=== PATIENT | female | born 1935 | race Hispanic/Latino ===

== ENCOUNTER 2016-11-03 18:54 | Inpatient (IN) | payer MEDICARE ==
[2016-11-03 18:55] VITALS: BMI 27.1
--- NOTE | 2016-11-03 19:31 | ED PDOC ---
HPI: Female Pain Time Seen by Provider: 11/03/16 19:05 Chief Complaint (Nursing): Weakness/Neurological Deficit Chief Complaint (Provider): Urinary frequency/burning/weakness History Per: Patient, Family (Son at bedside who works with mother every day. 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 He reports today she was very weak to the point of being unable to walk and began having fever, chills, headache, loss of appetite, and sleeping a lot. He and patient deny any sick contacts, chest pain, SOB, diarrhea, N/V, abdominal pain, visual/speech changes, cough, DVT, PE, [place]) History/Exam Limitations: no limitations Onset/Duration Of Symptoms: Gradual (Began with urinary frequency and progressed to burning), Worse Since (Today) Current Symptoms Are (Timing): Still Present Quality Of Discomfort: Burning Associated Symptoms: Fever, Chills, Loss Of Appetite, Urinary Symptoms Alleviating Factors: None Additional History Per: Family, Prior Records Abnormal Vaginal Bleeding: No Past Medical History Vital Signs: Last Vital Signs Temp 38.1 C H 11/03/16 18:55 Pulse 91 H 11/03/16 18:55 Resp 16 11/03/16 18:55 BP 163/89 H 11/03/16 18:55 Pulse Ox 96 11/03/16 18:55 - Medical History PMH: CVA (13yrs ago), HTN, Hypercholesterolemia, Hyperlipidemia, Pneumonia, TIA Denies: Arthritis (denied), Fractures, HIV, Pulmonary Embolism, Chronic Kidney Disease - Family History Family History: States: Unknown Family Hx - Home Medications Home Medications: Ambulatory Orders Medication Instructions Recorded Albuterol 0.083% [Albuterol 3 ml IH Q6 PRN #1 neb 09/05/15 Sulfate 3 Ml] Cholecalciferol (Vitamin D3) 2,000 unit PO DAILY #30 tablet 09/05/15 [Vitamin D] Mask, Face [Nebulizer Aerosol Mask 1 dev XX Q6 PRN #1 dev 09/05/15 Adult] Nebulizer [Aeroeclipse II] 1 each MC Q6 PRN #0 each 09/05/15 RX: Calcium/Niacin [Niacin 64 1 tab PO DAILY #0 tab 09/05/15 mg-500 mg] RX: Clopidogrel [Plavix] 75 mg PO DAILY #0 tab 09/05/15 RX: Losartan Potassium 100 mg PO DAILY #0 tab 09/05/15 RX: amLODIPine [Norvasc] 10 mg PO DAILY #0 tab 09/05/15 - Allergies Allergies/Adverse Reactions: Allergies Allergy/AdvReac Type Severity Reaction Status Date / Time No Known Allergies Allergy Verified 11/03/16 18:55 Review of Systems ROS Statement: Except As Marked, All Systems Reviewed And Found Negative Constitutional: Positive for: Fever, Chills, Weakness Eyes: Negative for: Vision Change ENT: Negative for: Ear Pain, Nose Congestion Cardiovascular: Negative for: Chest Pain, Orthopnea, Edema Respiratory: Negative for: Cough, Shortness of Breath Gastrointestinal: Negative for: Nausea, Vomiting, Abdominal Pain, Diarrhea Genitourinary Female: Positive for: Dysuria, Frequency, Incontinence Musculoskeletal: Negative for: Neck Pain, Back Pain Skin: Negative for: Rash Neurological: Negative for: Incoordination, Change in Speech, Confusion, Seizures, Altered Mental Status Psych: Negative for: Anxiety Physical Exam - Physical Exam Appears: Positive for: Non-toxic, No Acute Distress Head Exam: Positive for: ATRAUMATIC, NORMAL INSPECTION Skin: Positive for: Normal Color, Warm. Negative for: Rash Eye Exam: Positive for: Normal appearance, EOMI, PERRL. Negative for: Nystagmus ENT: Positive for: Pharynx Is (clear), Other (dry mucosa). Negative for: Sinus Pain/Drainage, Nasal Congestion, Tonsillar Exudate Neck: Positive for: Normal, Supple Cardiovascular/Chest: Positive for: Regular Rate, Rhythm, Murmur (). Negative for: Gallop, JVD, Friction Rub Respiratory: Positive for: Normal Breath Sounds. Negative for: Crackles, Rales , Rhonchi, Wheezing Pulses-Dorsalis Pedis (L): 1+ Pulses-Dorsalis Pedis (R): 1+ Pulses-Radial (L): 2+ Pulses-Radial (R): 2+ Gastrointestinal/Abdominal: Positive for: Normal Exam, Bowel Sounds, Soft. Negative for: Tenderness, Rebound Back: Negative for: L CVA Tenderness, R CVA Tenderness Extremity: Positive for: Normal ROM, Capillary Refill (<3s) Lymphatic: Negative for: Adenopathy Neurologic/Psych: Positive for: Alert, Oriented, Other (Tongue deviates to right ). Negative for: Motor/Sensory Deficits - Laboratory Results Result Diagrams: 11/03/16 20:11 11/03/16 20:11 Urine dip results: Positive for: Leukocyte Esterase, Blood, Nitrate - ECG ECG: Positive for: Interpreted By Me (NSR- 89, no acute ST-T abnormality) O2 Sat by Pulse Oximetry: 96 Pulse Ox Interpretation: Normal - Physician Consult Information Time Consulting Physican Contacted: 20:51 Medical Decision Making Medical Decision Making: EKG NSR, no ST-T abnormalities, hx c/w UTI but cannot r/o pyelonephritis. - CBC - CMP - PT/INR/PTT - EKG - urinalysis - Urine c&s - Accu-check:108 - Lactic Acid - Rocephin - BCx - 500ml NS bolus - urine dip: Nitrates/Blood/KATHERINE+ 1: FM resident contacted and informed of admission. Disposition - Clinical Impression Clinical Impression: Pyelonephritis, acute, SIRS (systemic inflammatory response syndrome) - Patient ED Disposition Is Patient to be Admitted: Yes Comment: Resident Doctor Will See Patient In The: Hospital - Disposition Disposition Time: 20:58 Condition: FAIR
[2016-11-03] MEDS ORDERED: Sodium Chloride 0.9% 500 ML IV STA (19:36)
[2016-11-03] MEDS ORDERED: cefTRIAXone (Rocephin) 1 gm Inj ONE (20:09)
[2016-11-03 20:15] LABS: RBC URINE 5 /hpf (0-3); URINE BACTERIA OCC (<OCC); URINE BILIRUBIN NEGATIVE (NEGATIVE); URINE BLOOD MODERATE (NEGATIVE); URINE COLOR YELLOW (YELLOW); URINE GLUCOSE (UA) NEG (Normal); URINE KETONE NEGATIVE (NEGATIVE); URINE LEUKOCYTE ESTERASE LARGE Leu/uL (Negative); URINE PROTEIN 30 mg/dL (NEGATIVE); URINE UROBILINOGEN 0.2-1.0 mg/dL (0.2-1.0); WBC URINE 162 /hpf (0-5)
[2016-11-03 20:18] LABS: BASO # 0.1 K/uL (0.0-0.2); BASO % 0.9 % (0.0-2.0); EOS % 0.1 % (0.0-4.0); HEMATOCRIT 36.8 % (34.0-47.0); MEAN CELL VOLUME 84.4 fl (81.0-99.0); MEAN CORPUSCULAR HEMOGLOBIN 27.8 pg (27.0-31.0); MEAN CORPUSCULAR HGB CONC 32.9 g/dL (33.0-37.0); MONO # 0.6 K/uL (0.0-0.8); MONO % 4.9 % (0.0-10.0); NEUT % 86.1 % (50.0-75.0); PLATELET COUNT 188 K/uL (130-400); RED CELL DISTRIBUTION WIDTH 14.2 % (11.5-14.5); WHITE BLOOD COUNT 12.8 K/uL (4.8-10.8)
[2016-11-03 20:25] LABS: ALB/GLOB RATIO 1.1 (1.0-2.1); ALKALINE PHOSPHATASE 134 U/L (38-126); ALT/SGPT 28 U/L (9-52); AST/SGOT 23 U/L (14-36); BILIRUBIN,TOTAL 1.9 mg/dl (0.2-1.3); BLOOD UREA NITROGEN 12 mg/dl (7-17); CARBON DIOXIDE 22 mmol/L (22-30); CHLORIDE 98 mmol/L (98-107); GFR AFRICAN-AMERICAN > 60; GLUCOSE,RANDOM 111 mg/dL (65-105); POTASSIUM 3.7 MMOL/L (3.6-5.0); SODIUM 136 mmol/l (132-148)
[2016-11-03 20:45] LABS: NEUTROPHIL 85 % (42-75); TOTAL CELLS COUNTED 100
[2016-11-03 20:46] LABS: LARGE PLATELETS PRESENT
[2016-11-03 20:53] LABS: PARTIAL THROMBOPLASTIN TIME 32.5 SECONDS (23.3-32.5)
--- NOTE | 2016-11-03 21:18 | CP.PCM.HP ---
<Momo Johnson - Last Filed: 11/04/16 03:01> History of Present Illness - History of Present Illness History of Present Illness: CC/HPI: 81 y.o. female accompannied with son Angel presents to [facility] for evaluation of "burning" while urinating for the past 2 days preceded by 2 weeks of frequency and incontinence. Pt. also reports left sided flank pain, fever, chills, decreased appetite and weakness. On ROS, Pt. denies any headache, chest pain, shortness of breath, cough, abdominal pain, N/V/D, or limb pain. PMHx: HTN, Dyslipidemia, Stroke 12 years ago, CAP 2016 PSHx: RT. Hip Replacement Surgery - 2010 FMHx: Not contributory SMHx: Denies TOB, ETOH, DRUGS HOME: Lives with son Ambulates with walker Allergies: NKDA Home Meds: Losartan 100 mg daily Metoprolol succinate 50 mg daily Norvasc 10 mg daily Plavix 75 mg daily Niacin 500mg 1 tab Daily PMD: Dr. Earl Pharmacy: [facility] Course: 1- EKG, CXR 2- CBC, CMP, UA, UCx, BCx, Lactic acid, Coags 3- Bolus 500cc of N/S 4- Rocephin 2gram IVPB Present on Admission - Present on Admission Any Indicators Present on Admission: No History of DVT/PE: No History of Uncontrolled Diabetes: No Urinary Catheter: No Decubitus Ulcer Present: No Review of Systems - Review of Systems Review of Systems: See HPI Past Patient History - Infectious Disease Hx of Infectious Diseases: None - Past Medical History & Family History Past Medical History?: Yes - Past Social History Smoking Status: Never Smoked - CARDIAC Hx Hypercholesterolemia: Yes Hx Hypertension: Yes - PULMONARY Hx Pneumonia: Yes Hx Pulmonary Embolism: No - NEUROLOGICAL Hx Transient Ischemic Attacks (TIA): Yes - HEENT Hx HEENT Problems: No - RENAL Hx Chronic Kidney Disease: No - ENDOCRINE/METABOLIC Hx Endocrine Disorders: No - HEMATOLOGICAL/ONCOLOGICAL Hx Human Immunodeficiency Virus (HIV): No - INTEGUMENTARY Hx Dermatological Problems: No - MUSCULOSKELETAL/RHEUMATOLOGICAL Hx Arthritis: No (denied) Hx Fractures: Yes (Rt. Hip) - GASTROINTESTINAL Hx Hemorrhoids: Yes (and were noted on this admission) Hx Nausea: Yes (prior to this admission) Hx Vomiting: Yes (prior to this admission for three days) - GENITOURINARY/GYNECOLOGICAL Hx Genitourinary Disorders: No - PSYCHIATRIC Hx Psychophysiologic Disorder: No Hx Substance Use: No - SURGICAL HISTORY Hx Surgeries: Yes Hx Orthopedic Surgery: Yes (right hip surgery) - ANESTHESIA Hx Anesthesia: Yes Hx Anesthesia Reactions: No Hx Malignant Hyperthermia: No Meds Allergies/Adverse Reactions: Allergies Allergy/AdvReac Type Severity Reaction Status Date / Time No Known Allergies Allergy Verified 11/03/16 18:55 Physical Exam - Constitutional Appears: Non-toxic, No Acute Distress - Head Exam Head Exam: ATRAUMATIC, NORMOCEPHALIC - Eye Exam Eye Exam: Normal appearance, PERRL. absent: Scleral icterus - ENT Exam ENT Exam: Mucous Membranes Moist - Neck Exam Additional comments: Supple, Full ROM - Respiratory Exam Respiratory Exam: Clear to Auscultation Bilateral, NORMAL BREATHING PATTERN - Cardiovascular Exam Cardiovascular Exam: RRR, Systolic Murmur - GI/Abdominal Exam GI & Abdominal Exam: Soft. absent: Tenderness - Extremities Exam Extremities exam: Positive for: normal capillary refill, pedal edema. Negative for: calf tenderness - Back Exam Back exam: absent: CVA tenderness (L), CVA tenderness (R) - Neurological Exam Neurological exam: Alert, CN II-XII Intact (Grossly intact), Oriented x3 - Psychiatric Exam Psychiatric exam: Normal Affect, Normal Mood Results - Vital Signs Recent Vital Signs: Last Vital Signs Temp 100.6 F H 11/03/16 20:24 Pulse 91 H 11/03/16 18:55 Resp 16 11/03/16 18:55 BP 163/89 H 11/03/16 18:55 Pulse Ox 96 11/03/16 21:06 - Labs Result Diagrams: 11/03/16 20:11 11/03/16 20:11 Labs: Laboratory Results - last 24 hr 11/03/16 11/03/16 20:00 20:11 WBC 12.8 H D RBC 4.36 Hgb 12.1 Hct 36.8 MCV 84.4 D MCH 27.8 MCHC 32.9 L RDW 14.2 Plt Count 188 D MPV 9.0 Neut % (Auto) 86.1 H Lymph % (Auto) 8.0 L [place] % (Auto) 4.9 Eos % (Auto) 0.1 Baso % (Auto) 0.9 Neut # 11.0 H Lymph # 1.0 [place] # 0.6 Eos # 0.0 Baso # 0.1 Neutrophils % (Manual) 85 H Band Neutrophils % 2 Lymphocytes % (Manual) 8 L Monocytes % (Manual) 5 Platelet Estimate Normal Large Platelets Present Poikilocytosis (manual Slight Anisocytosis (manual) Slight Ovalocytes Slight PT 11.4 H INR 1.10 H APTT 32.5 Sodium 136 Potassium 3.7 Chloride 98 Carbon Dioxide 22 Anion Gap 20 BUN 12 Creatinine 0.7 Est GFR ( Amer) > 60 Est GFR (Non-Af Amer) > 60 Random Glucose 111 H Lactic Acid 1.1 Calcium 10.0 Total Bilirubin 1.9 H AST 23 ALT 28 Alkaline Phosphatase 134 H Total Protein 8.0 Albumin 4.1 Globulin 3.9 Albumin/Globulin Ratio 1.1 Urine Color Yellow Urine Clarity Slighty-cloudy Urine pH 7.0 Ur Specific [place] 1.006 Urine Protein 30 Urine Glucose (UA) Neg Urine Ketones Negative Urine Blood Moderate Urine Nitrate Negative Urine Bilirubin Negative Urine Urobilinogen 0.2-1.0 Ur Leukocyte Esterase Large Urine RBC (Auto) 5 H Urine Microscopic WBC 162 H Ur Squamous Epith Cells < 1 Urine Bacteria Occ H Assessment & Plan - Assessment and Plan (Free Text) Assessment: 81 y.o. female admitted for acute pylonephritis and Sepsis Acute Pyleonephritis - UA postive - UCx pending - Rocephin 1gram IVPB daily - Normal Saline 75cc/hr - Consider I.D. consult - Repeat CBC & BMP in the a.m. Sepsis- SIRS Criteria (Temp 100.4 + HR>90 + WBC12) and Source of infection- UTI - BCx pending - Rocephin 1gram IVPB daily - Consider I.D. consult - Repeat CBC & BMP in the a.m. - CXR pending Leucocytosis - Rocephin 1gram IVPB daily - Repeat CBC in the a.m. Fever - Tylenol PRN Nausea & Decreased PO intake - Zofran PRN Hx of Stroke- 13 years ago monitor - Continue Plavix 75mg po daily HTN - Continue Metoprolol Succinate 50mg po daily - Continue Amlodipine 10mg po daily - Continue Losartan 100mg po daily Hx of Rt. Hip Fx - Physical therapy evaluate and treat - Fall precautions in place GI prophylaxis - Pepcid 40mg PO daily DVT prophylaxis - Lovenox 40mg sc Diet - Heart healthy/Soft <Tylor Earl - Last Filed: 11/04/16 07:31> Results - Vital Signs Recent Vital Signs: Last Vital Signs Temp 99.6 F 11/03/16 23:10 Pulse 73 11/03/16 23:10 Resp 19 11/03/16 23:10 BP 111/51 L 11/03/16 23:10 Pulse Ox 97 11/03/16 23:10 - Labs Result Diagrams: 11/04/16 06:05 11/03/16 20:11 Labs: Laboratory Results - last 24 hr 11/04/16 06:05 WBC 13.3 H RBC 4.06 Hgb 11.1 L Hct 34.6 MCV 85.2 MCH 27.3 MCHC 32.1 L RDW 14.1 Plt Count 163 MPV 9.3 Neut % (Auto) 87.6 H Lymph % (Auto) 6.1 L [place] % (Auto) 5.9 Eos % (Auto) 0.1 Baso % (Auto) 0.3 Neut # 11.6 H Lymph # 0.8 L [place] # 0.8 Eos # 0.0 Baso # 0.0 Attending/Attestation - Attestation I have personally seen and examined this patient.: Yes I have fully participated in the care of the patient.: Yes I have reviewed all pertinent clinical information: Yes
[2016-11-03] MEDS ORDERED: Sodium Chloride 0.9% 1,000 ML IV SCH (21:45)
[2016-11-04] MEDS ORDERED: Pneumococcal 23-Valent Vaccine IM ONE (06:00)
[2016-11-04] MEDS ORDERED: Influenza Vaccine(5yr & older) 0.5 ML/45 MCG IM ONE (06:00)
[2016-11-04 07:08] LABS: BASO % 0.3 % (0.0-2.0); EOS % 0.1 % (0.0-4.0); HEMATOCRIT 34.6 % (34.0-47.0); LYMPH # 0.8 K/uL (1.0-4.3); LYMPH % 6.1 % (20.0-40.0); MEAN CELL VOLUME 85.2 fl (81.0-99.0); MEAN CORPUSCULAR HEMOGLOBIN 27.3 pg (27.0-31.0); MEAN CORPUSCULAR HGB CONC 32.1 g/dL (33.0-37.0); MEAN PLATELET VOLUME 9.3 fl (7.2-11.7); MONO # 0.8 K/uL (0.0-0.8); MONO % 5.9 % (0.0-10.0); NEUT # 11.6 K/uL (1.8-7.0); NEUT % 87.6 % (50.0-75.0); RED CELL DISTRIBUTION WIDTH 14.1 % (11.5-14.5); WHITE BLOOD COUNT 13.3 K/uL (4.8-10.8)
[2016-11-04 07:35] LABS: BLOOD UREA NITROGEN 11 mg/dl (7-17); CALCIUM 9.1 mg/dL (8.4-10.2); CARBON DIOXIDE 21 mmol/L (22-30); CHLORIDE 103 mmol/L (98-107); GFR AFRICAN-AMERICAN > 60; GLUCOSE,RANDOM 91 mg/dL (65-105); POTASSIUM 3.4 MMOL/L (3.6-5.0); SODIUM 139 mmol/l (132-148)
--- NOTE | 2016-11-04 08:05 | CARD ---
APPROVED REPORT EKG Measurement Heart [id number] <Conclusion> Normal sinus rhythm Normal ECG
--- NOTE | 2016-11-04 10:05 | CP.PCM.PN ---
<Carissa Hollins - Last Filed: 11/04/16 14:49> Subjective - Date & Time of Evaluation Date of Evaluation: 11/04/16 Time of Evaluation: 07:50 - Subjective Subjective: Patient seen and examined bedside lying on bed. Reports pain during urination. Denies nausea, vomiting, abdominal pain, chest pain, SOB. Objective - Vital Signs/Intake and Output Vital Signs (last 24 hours): Temp Pulse Resp BP Pulse Ox 100.6 F H 92 H 20 152/71 H 94 L 11/04/16 08:20 11/04/16 08:20 11/04/16 08:20 11/04/16 08:20 11/04/16 08:20 - Medications Medications: Current Medications Acetaminophen (Tylenol 325mg Tab) 650 mg PO Q6 PRN PRN Reason: Fever >100.4 F Last Admin: 11/04/16 08:09 Dose: 650 mg Amlodipine Besylate (Norvasc) 10 mg PO DAILY [facility] Clopidogrel Bisulfate (Plavix) 75 mg PO DAILY [facility] Enoxaparin Sodium (Lovenox) 40 mg SC DAILY [facility] PRN Reason: Protocol Famotidine (Pepcid) 40 mg PO HS [facility] Ceftriaxone Sodium 1 gm/ (Sodium Chloride) 100 mls @ 100 mls/hr IVPB DAILY [facility] Last Admin: 11/04/16 08:11 Dose: 100 mls/hr Sodium Chloride (Sodium Chloride 0.9%) 1,000 mls @ 75 mls/hr IV .[id number] [facility] Stop: 11/04/16 21:46 Losartan Potassium (Cozaar) 100 mg PO DAILY [facility] Metoprolol Succinate (Toprol Xl) 50 mg PO DAILY [facility] Ondansetron HCl (Zofran Inj) 4 mg IVP Q6 PRN PRN Reason: Nausea/Vomiting - Labs Labs: 11/04/16 06:05 11/04/16 06:05 PT 11.4 SECONDS (9.6-11.2) H 11/03/16 20:11 INR 1.10 (0.92-1.08) H 11/03/16 20:11 APTT 32.5 SECONDS (23.3-32.5) 11/03/16 20:11 - Constitutional Appears: No Acute Distress - Head Exam Head Exam: ATRAUMATIC, NORMOCEPHALIC - Eye Exam Eye Exam: Normal appearance - Respiratory Exam Respiratory Exam: Clear to Ausculation Bilateral. absent: Rales, Rhonchi, Wheezes - Cardiovascular Exam Cardiovascular Exam: REGULAR RHYTHM, +S1, +S2, Murmur Additional comments: 3/6 systolic murmur radiated to neck left side. no JVD - GI/Abdominal Exam GI & Abdominal Exam: Soft, Tenderness, Normal Bowel Sounds. absent: Guarding, Rebound Additional comments: Td to palpation left flank. NO CVAT - Extremities Exam Extremities Exam: Normal Inspection. absent: Pedal Edema - Back Exam Back Exam: absent: CVA tenderness (L), CVA tenderness (R) - Neurological Exam Neurological Exam: Alert, Awake - Psychiatric Exam Psychiatric exam: Normal Mood - Skin Skin Exam: Intact Assessment and Plan - Assessment and Plan (Free Text) Plan: 81 yo , f, admitted for acute pylonephritis and Sepsis Acute Pyleonephritis - UA postive - UCx pending - Rocephin 1gram IVPB daily - Normal Saline 75cc/hr - ID consult suggested - Repeat CBC & BMP in the a.m. Sepsis- SIRS Criteria (Temp 100.4 + HR>90 + WBC12) and Source of infection- UTI - BCx pending - Rocephin 1gram IVPB daily - ID consult suggested - CXR Right middle lobe atelectasis or infiltrate. 5 mm nodular density projects over the medial right clavicle Leucocytosis - secondary to pyelonephritis - Rocephin 1gram IVPB daily - Repeat CBC in the a.m. -Hypokalemia K 3.4 Potassium chloride 20 meq PO -F/U CMP Fever - Tylenol PRN Nausea & Decreased PO intake - Zofran PRN Hx of Stroke- 13 years ago monitor - Continue Plavix 75mg po daily HTN - Continue Metoprolol Succinate 50mg po daily - Continue Amlodipine 10mg po daily - Continue Losartan 100mg po daily Hx of Rt. Hip Fx - Physical therapy evaluate and treat - Fall precautions in place GI prophylaxis - Pepcid 40mg PO daily DVT prophylaxis - Lovenox 40mg sc <Sammy Serrano - Last Filed: 11/07/16 06:49> Objective - Vital Signs/Intake and Output Vital Signs (last 24 hours): Temp Pulse Resp BP Pulse Ox 99.9 F H 91 H 18 138/74 94 L 11/07/16 04:49 11/07/16 04:49 11/07/16 04:50 11/07/16 04:49 11/07/16 04:49 Intake and Output: 11/06/16 11/07/16 18:59 06:59 Intake Total 500 Output Total 1100 Balance -600 - Medications Medications: Current Medications Acetaminophen (Tylenol 325mg Tab) 650 mg PO Q6 PRN PRN Reason: Fever >100.4 F Last Admin: 11/06/16 08:47 Dose: 650 mg Albuterol/Ipratropium (Duoneb 3 Mg/0.5 Mg (3 Ml) Ud) 3 ml INH RQ6 PRN PRN Reason: Shortness of Breath Last Admin: 11/06/16 06:27 Dose: 3 ml Amlodipine Besylate (Norvasc) 10 mg PO DAILY [facility] Last Admin: 11/06/16 08:49 Dose: 10 mg Clopidogrel Bisulfate (Plavix) 75 mg PO DAILY [facility] Last Admin: 11/06/16 08:49 Dose: 75 mg Enoxaparin Sodium (Lovenox) 40 mg SC DAILY [facility] PRN Reason: Protocol Last Admin: 11/06/16 08:49 Dose: 40 mg Famotidine (Pepcid) 40 mg PO HS [facility] Last Admin: 11/06/16 21:33 Dose: 40 mg Meropenem 1 gm/ Sodium (Chloride) 100 mls @ 100 mls/hr IVPB Q12 [facility] Last Admin: 11/06/16 21:32 Dose: 100 mls/hr Amikacin Sulfate 250 mg/ (Sodium Chloride) 101 mls @ 100.609 mls/hr IVPB Q24H [facility] Stop: 11/09/16 17:01 Last Admin: 11/06/16 17:00 Dose: 100.609 mls/hr Losartan Potassium (Cozaar) 100 mg PO DAILY [facility] Last Admin: 11/06/16 08:50 Dose: 100 mg Metoprolol Succinate (Toprol Xl) 50 mg PO DAILY [facility] Last Admin: 11/06/16 08:48 Dose: 50 mg Ondansetron HCl (Zofran Inj) 4 mg IVP Q6 PRN PRN Reason: Nausea/Vomiting - Labs Labs: 11/06/16 05:55 11/06/16 05:55 PT 11.4 SECONDS (9.6-11.2) H 11/03/16 20:11 INR 1.10 (0.92-1.08) H 11/03/16 20:11 APTT 32.5 SECONDS (23.3-32.5) 11/03/16 20:11 Attending/Attestation - Attestation I have personally seen and examined this patient.: Yes I have fully participated in the care of the patient.: Yes I have reviewed all pertinent clinical information, including history, physical exam and plan: Yes
--- NOTE | 2016-11-04 10:54 | RAD ---
HISTORY: admit COMPARISON: Chest x-ray performed 08/28/15 TECHNIQUE: Chest, one view. FINDINGS: LUNGS: Right middle lobe atelectasis or infiltrate. Probable mild pulmonary venous congestion. Small nodular pulmonary opacities persist. 5 mm nodular density projects over the medial right clavicle, possibly bone island or superimposed pulmonary nodule/granuloma. Please note that chest x-ray has limited sensitivity for the detection of pulmonary masses. PLEURA: No significant pleural effusion identified. No definite pneumothorax . CARDIOVASCULAR: Cardiomegaly. Atherosclerotic calcifications of an ectatic aorta. OSSEOUS STRUCTURES: Osseous demineralization. Degenerative changes of the spine and shoulders. VISUALIZED UPPER ABDOMEN: Unremarkable. OTHER FINDINGS: Suture material projects over the right lower lobe. IMPRESSION: Right middle lobe atelectasis or infiltrate. Probable mild pulmonary venous congestion. Small nodular pulmonary opacities persist. 5 mm nodular density projects over the medial right clavicle, possibly bone island or superimposed pulmonary nodule/granuloma. Cardiomegaly.
[2016-11-04] MEDS: Metoprolol Succinate 50 mg XL Tab PO SCH (11:39)
[2016-11-04] MEDS: Enoxaparin 40 mg Syringe SC SCH (11:40)
[2016-11-04] MEDS ORDERED: Potassium Chloride 20 mEq ER Tab PO ONE (15:10)
--- NOTE | 2016-11-04 18:33 | CP.PCM.PN ---
Subjective - Date & Time of Evaluation Date of Evaluation: 11/04/16 Time of Evaluation: 18:30 - Subjective Subjective: ID NOTE AT PRESENT IS AFEBRILE HAS BACTERIA,WBC IN URINE AWAIT CULTURES ,CONTINUE ROCEPHEN Objective - Vital Signs/Intake and Output Vital Signs (last 24 hours): Temp Pulse Resp BP Pulse Ox 98 F 59 L 20 157/71 H 94 L 11/04/16 09:09 11/04/16 17:00 11/04/16 08:20 11/04/16 11:40 11/04/16 08:20 - Medications Medications: Current Medications Acetaminophen (Tylenol 325mg Tab) 650 mg PO Q6 PRN PRN Reason: Fever >100.4 F Last Admin: 11/04/16 08:09 Dose: 650 mg Amlodipine Besylate (Norvasc) 10 mg PO DAILY [facility] Last Admin: 11/04/16 11:40 Dose: 10 mg Clopidogrel Bisulfate (Plavix) 75 mg PO DAILY [facility] Last Admin: 11/04/16 11:39 Dose: 75 mg Enoxaparin Sodium (Lovenox) 40 mg SC DAILY [facility] PRN Reason: Protocol Last Admin: 11/04/16 11:40 Dose: 40 mg Famotidine (Pepcid) 40 mg PO HS [facility] Ceftriaxone Sodium 1 gm/ (Sodium Chloride) 100 mls @ 100 mls/hr IVPB DAILY [facility] Last Admin: 11/04/16 08:11 Dose: 100 mls/hr Sodium Chloride (Sodium Chloride 0.9%) 1,000 mls @ 75 mls/hr IV .[id number] [facility] Stop: 11/04/16 21:46 Losartan Potassium (Cozaar) 100 mg PO DAILY [facility] Last Admin: 11/04/16 11:40 Dose: 100 mg Metoprolol Succinate (Toprol Xl) 50 mg PO DAILY [facility] Last Admin: 11/04/16 11:39 Dose: 50 mg Ondansetron HCl (Zofran Inj) 4 mg IVP Q6 PRN PRN Reason: Nausea/Vomiting - Labs Labs: 11/04/16 06:05 11/04/16 06:05 PT 11.4 SECONDS (9.6-11.2) H 11/03/16 20:11 INR 1.10 (0.92-1.08) H 11/03/16 20:11 APTT 32.5 SECONDS (23.3-32.5) 11/03/16 20:11
[2016-11-04] MEDS ORDERED: Meropenem 1 GM in Sodium Chloride 0.9% 100 ML IVPB STA (22:50)
[2016-11-05 06:40] LABS: HEMATOCRIT 32.5 % (34.0-47.0); MEAN CELL VOLUME 85.6 fl (81.0-99.0); MEAN CORPUSCULAR HEMOGLOBIN 27.4 pg (27.0-31.0); RED CELL DISTRIBUTION WIDTH 13.9 % (11.5-14.5); WHITE BLOOD COUNT 9.7 K/uL (4.8-10.8)
[2016-11-05 06:58] LABS: ALB/GLOB RATIO 0.9 (1.0-2.1); ALKALINE PHOSPHATASE 104 U/L (38-126); ALT/SGPT 23 U/L (9-52); AST/SGOT 15 U/L (14-36); BILIRUBIN,TOTAL 0.7 mg/dl (0.2-1.3); BLOOD UREA NITROGEN 12 mg/dl (7-17); CALCIUM 9.2 mg/dL (8.4-10.2); CARBON DIOXIDE 19 mmol/L (22-30); CHLORIDE 106 mmol/L (98-107); GFR AFRICAN-AMERICAN > 60; GLUCOSE,RANDOM 84 mg/dL (65-105); POTASSIUM 3.6 MMOL/L (3.6-5.0); SODIUM 140 mmol/l (132-148); TOTAL PROTEIN 6.2 G/DL (6.3-8.2)
--- NOTE | 2016-11-05 06:59 | CP.PCM.PN ---
<Carissa Hollins - Last Filed: 11/05/16 13:04> Subjective - Date & Time of Evaluation Date of Evaluation: 11/05/16 Time of Evaluation: 07:20 - Subjective Subjective: Patient seen and examined bedside. Reports dry mouth,dysuria, and b/L hands and arms pain. Denies nausea, vomiting, abdominal pain. Urine frequent with normal output. low appetite , but able to tolerate her diet. instructed to drink enough fluids. Objective - Vital Signs/Intake and Output Vital Signs (last 24 hours): Temp Pulse Resp BP Pulse Ox 100.8 F H 82 20 130/65 90 L 11/05/16 00:00 11/05/16 00:00 11/05/16 00:00 11/05/16 00:00 11/05/16 00:00 - Medications Medications: Current Medications Acetaminophen (Tylenol 325mg Tab) 650 mg PO Q6 PRN PRN Reason: Fever >100.4 F Last Admin: 11/04/16 08:09 Dose: 650 mg Amlodipine Besylate (Norvasc) 10 mg PO DAILY [facility] Last Admin: 11/04/16 11:40 Dose: 10 mg Clopidogrel Bisulfate (Plavix) 75 mg PO DAILY [facility] Last Admin: 11/04/16 11:39 Dose: 75 mg Enoxaparin Sodium (Lovenox) 40 mg SC DAILY [facility] PRN Reason: Protocol Last Admin: 11/04/16 11:40 Dose: 40 mg Famotidine (Pepcid) 40 mg PO HS [facility] Last Admin: 11/04/16 22:44 Dose: 40 mg Ceftriaxone Sodium 1 gm/ (Sodium Chloride) 100 mls @ 100 mls/hr IVPB DAILY [facility] Last Admin: 11/04/16 08:11 Dose: 100 mls/hr Meropenem 1 gm/ Sodium (Chloride) 100 mls @ 100 mls/hr IVPB Q12 [facility] Losartan Potassium (Cozaar) 100 mg PO DAILY [facility] Last Admin: 11/04/16 11:40 Dose: 100 mg Metoprolol Succinate (Toprol Xl) 50 mg PO DAILY [facility] Last Admin: 11/04/16 11:39 Dose: 50 mg Ondansetron HCl (Zofran Inj) 4 mg IVP Q6 PRN PRN Reason: Nausea/Vomiting - Labs Labs: 11/05/16 05:55 11/04/16 06:05 PT 11.4 SECONDS (9.6-11.2) H 11/03/16 20:11 INR 1.10 (0.92-1.08) H 11/03/16 20:11 APTT 32.5 SECONDS (23.3-32.5) 11/03/16 20:11 - Constitutional Appears: No Acute Distress - Head Exam Head Exam: ATRAUMATIC, NORMOCEPHALIC - Eye Exam Eye Exam: Normal appearance - Respiratory Exam Respiratory Exam: Clear to Ausculation Bilateral. absent: Rales, Rhonchi, Wheezes - Cardiovascular Exam Cardiovascular Exam: REGULAR RHYTHM, +S1, +S2, Murmur Additional comments: systolic murmur 3/6 radiate to neck on aortic area - GI/Abdominal Exam GI & Abdominal Exam: Soft, Normal Bowel Sounds. absent: Tenderness - Extremities Exam Extremities Exam: Normal Inspection. absent: Calf Tenderness - Neurological Exam Neurological Exam: Alert, Awake Assessment and Plan - Assessment and Plan (Free Text) Plan: 81 yo , f, admitted for acute pylonephritis and Sepsis 1)Acute Pyleonephritis - UA positive - UCx preliminary gram neg damien - Rocephin 1gram IVPB daily - Normal Saline 75cc/hr - ID consult Manocchio appreciated: await cx, c/w rocephin. Added meropenem 1g BID - Repeat CBC & BMP in the a.m. 2) Sepsis - SIRS Criteria (Temp 100.4 + HR>90 + WBC12) and Source of infection- UTI - BCx pending - Rocephin 1gram IVPB daily - ID consult appreciated. - CXR Right middle lobe atelectasis or infiltrate. 5 mm nodular density projects over the medial right clavicle 3)Leucocytosis - secondary to pyelonephritis -resolved - Rocephin 1gram IVPB daily - Repeat CBC in the a.m. 4)-Hypokalemia - resolved -K 3.6 -F/U CMP 5)Hx of Stroke- 13 years ago monitor - Continue Plavix 75mg po daily 6)HTN - Continue Metoprolol Succinate 50mg po daily - Continue Amlodipine 10mg po daily - Continue Losartan 100mg po daily 7)Hx of Rt. Hip Fx - Physical therapy evaluated. Recommends TCU - Fall precautions in place 8)DVT prophylaxis - Lovenox 40mg sc - <Sammy Serrano - Last Filed: 11/07/16 06:50> Objective - Vital Signs/Intake and Output Vital Signs (last 24 hours): Temp Pulse Resp BP Pulse Ox 99.9 F H 91 H 18 138/74 94 L 11/07/16 04:49 11/07/16 04:49 11/07/16 04:50 11/07/16 04:49 11/07/16 04:49 Intake and Output: 11/06/16 11/07/16 18:59 06:59 Intake Total 500 Output Total 1100 Balance -600 - Medications Medications: Current Medications Acetaminophen (Tylenol 325mg Tab) 650 mg PO Q6 PRN PRN Reason: Fever >100.4 F Last Admin: 11/06/16 08:47 Dose: 650 mg Albuterol/Ipratropium (Duoneb 3 Mg/0.5 Mg (3 Ml) Ud) 3 ml INH RQ6 PRN PRN Reason: Shortness of Breath Last Admin: 11/06/16 06:27 Dose: 3 ml Amlodipine Besylate (Norvasc) 10 mg PO DAILY [facility] Last Admin: 11/06/16 08:49 Dose: 10 mg Clopidogrel Bisulfate (Plavix) 75 mg PO DAILY [facility] Last Admin: 11/06/16 08:49 Dose: 75 mg Enoxaparin Sodium (Lovenox) 40 mg SC DAILY [facility] PRN Reason: Protocol Last Admin: 11/06/16 08:49 Dose: 40 mg Famotidine (Pepcid) 40 mg PO HS [facility] Last Admin: 11/06/16 21:33 Dose: 40 mg Meropenem 1 gm/ Sodium (Chloride) 100 mls @ 100 mls/hr IVPB Q12 [facility] Last Admin: 11/06/16 21:32 Dose: 100 mls/hr Amikacin Sulfate 250 mg/ (Sodium Chloride) 101 mls @ 100.609 mls/hr IVPB Q24H [facility] Stop: 11/09/16 17:01 Last Admin: 11/06/16 17:00 Dose: 100.609 mls/hr Losartan Potassium (Cozaar) 100 mg PO DAILY [facility] Last Admin: 11/06/16 08:50 Dose: 100 mg Metoprolol Succinate (Toprol Xl) 50 mg PO DAILY [facility] Last Admin: 11/06/16 08:48 Dose: 50 mg Ondansetron HCl (Zofran Inj) 4 mg IVP Q6 PRN PRN Reason: Nausea/Vomiting - Labs Labs: 11/06/16 05:55 11/06/16 05:55 PT 11.4 SECONDS (9.6-11.2) H 11/03/16 20:11 INR 1.10 (0.92-1.08) H 11/03/16 20:11 APTT 32.5 SECONDS (23.3-32.5) 11/03/16 20:11 Attending/Attestation - Attestation I have personally seen and examined this patient.: Yes I have fully participated in the care of the patient.: Yes I have reviewed all pertinent clinical information, including history, physical exam and plan: Yes
[2016-11-05] MEDS: Enoxaparin 40 mg Syringe SC SCH (08:37)
[2016-11-05] MEDS: Meropenem 1 GM in Sodium Chloride 0.9% 100 ML IVPB SCH ×2 (08:38→21:11)
[2016-11-05] MEDS: Metoprolol Succinate 50 mg XL Tab PO SCH (08:41)
[2016-11-05] MEDS ORDERED: Albuterol-Ipratrop 3 mg / 0.5 (3 ml) UD INH STA ×2 (14:52→23:05)
--- NOTE | 2016-11-05 15:32 | RAD ---
HISTORY: Shortness of breath COMPARISON: 11/03/2016 FINDINGS: LUNGS: No acute infiltrate. Mediastinal and bilateral hilar nodes. . Surgical sutures at right lung base. PLEURA: No significant pleural effusion identified, no pneumothorax apparent. CARDIOVASCULAR: Normal. OSSEOUS STRUCTURES: No significant abnormalities. VISUALIZED UPPER ABDOMEN: Normal. OTHER FINDINGS: None. IMPRESSION: No acute infiltrate. Calcified mediastinal and hilar nodes consistent with old granulomatous disease. Surgical sutures at right base.
[2016-11-05] MEDS ORDERED: Amikacin 500 mg/2ml Inj IM SCH (19:45)
--- NOTE | 2016-11-05 20:53 | CON ---
DATE: 11/05/2016 HISTORY OF PRESENT ILLNESS: The patient is an 81-year-old female who came to the Emergency Room with her son, complaining that she was burning while urinating for the 2 days prior to admission. She also complained of a week to 2 history of frequency and incontinence. She a history of left-sided flank pain , fever, chills, and weakness. PAST HISTORY: The patient has a past medical history of CVA, CIP, and dyslipidemia. She had a hip replacement done in 2010. No use of alcohol or drugs. SOCIAL HISTORY: Presently lives with son. MEDICATIONS: Include metoprolol, losartan for blood pressure, Norvasc, and Plavix. PRIVATE DOCTOR: Dr. Dias. PHYSICAL EXAMINATION: GENERAL: The patient is somewhat confused. HEENT: Within normal limits. NECK: Supple. LUNGS: Decreased breath sounds at bases. HEART: Regular sinus rhythm. She has a pansystolic murmur. ABDOMEN: Soft, positive bowel sounds. EXTREMITIES: There is no CCE. VITAL SIGNS: The patient has had a temperature of over 101. LABORATORY DATA: Her micro includes positive blood cultures and urine for gram- negative rods, no identification is noted as possible. She spiked temperatures through Rocephin, though. White count was 12.8 on admission, is now 9.7. Creatinine is 0.7. GFR is greater than 60. Chest x-ray shows no acute infiltrate. At the present time, the patient appears to have gram-negative sepsis, secondary to uti She should be treated at this moment.c meropenem 1 g q. 12 hours and amikacin 250 mg IV piggyback q. 24, I have discontinued the Rocephin as she spiked a temperature through that. For the present time, she will be maintained on these antibiotics until the followup of the cultures with the returns. I have also ordered 2 repeat blood cultures and urine culture. Be Moser MD cc: 61 TT: 11/05/2016 20:52:30 Confirmation # [id number] Dictation # [id number] ln MTDD
[2016-11-06] MEDS ORDERED: Albuterol-Ipratrop 3 mg / 0.5 (3 ml) UD INH PRN (05:27)
[2016-11-06 07:01] LABS: HEMATOCRIT 32.8 % (34.0-47.0); MEAN CELL VOLUME 84.9 fl (81.0-99.0); MEAN CORPUSCULAR HEMOGLOBIN 27.4 pg (27.0-31.0); MEAN CORPUSCULAR HGB CONC 32.3 g/dL (33.0-37.0); RED CELL DISTRIBUTION WIDTH 13.9 % (11.5-14.5); WHITE BLOOD COUNT 7.7 K/uL (4.8-10.8)
[2016-11-06 07:11] LABS: ALB/GLOB RATIO 0.9 (1.0-2.1); ALKALINE PHOSPHATASE 108 U/L (38-126); ALT/SGPT 23 U/L (9-52); AST/SGOT 18 U/L (14-36); BILIRUBIN,TOTAL 0.5 mg/dl (0.2-1.3); BLOOD UREA NITROGEN 12 mg/dl (7-17); CALCIUM 9.3 mg/dL (8.4-10.2); CARBON DIOXIDE 21 mmol/L (22-30); CHLORIDE 102 mmol/L (98-107); GFR AFRICAN-AMERICAN > 60; GLUCOSE,RANDOM 101 mg/dL (65-105); POTASSIUM 3.8 MMOL/L (3.6-5.0); SODIUM 130 mmol/l (132-148); TOTAL PROTEIN 6.4 G/DL (6.3-8.2)
--- NOTE | 2016-11-06 07:36 | CP.PCM.PN ---
<AllegraCarissa doe - Last Filed: 11/06/16 10:26> Subjective - Date & Time of Evaluation Date of Evaluation: 11/06/16 Time of Evaluation: 07:05 - Subjective Subjective: Patient seen and examined bedside. Reports mild SOB started yesterday night. Patient was given duoneb last night due to wheezing and SOB. Using O2 NC. Breathing with mild difficulty on O2 NC. Reports body aches, over hands and arms. Denies Chest pain, palpitation, abd pain, nausea, vomiting. Urinating frequent with normal output Objective - Vital Signs/Intake and Output Vital Signs (last 24 hours): Temp Pulse Resp BP Pulse Ox 97.4 F L 92 H 22 150/83 93 L 11/06/16 06:00 11/06/16 06:00 11/06/16 06:00 11/06/16 06:00 11/06/16 06:00 - Medications Medications: Current Medications Acetaminophen (Tylenol 325mg Tab) 650 mg PO Q6 PRN PRN Reason: Fever >100.4 F Last Admin: 11/05/16 18:39 Dose: 650 mg Albuterol/Ipratropium (Duoneb 3 Mg/0.5 Mg (3 Ml) Ud) 3 ml INH RQ6 PRN PRN Reason: Shortness of Breath Last Admin: 11/06/16 06:27 Dose: 3 ml Amikacin Sulfate (Amikacin 500 Mg/2ml Inj) 250 mg IM Q24H [facility] Stop: 11/07/16 19:46 Amlodipine Besylate (Norvasc) 10 mg PO DAILY [facility] Last Admin: 11/05/16 08:39 Dose: 10 mg Clopidogrel Bisulfate (Plavix) 75 mg PO DAILY [facility] Last Admin: 11/05/16 08:39 Dose: 75 mg Enoxaparin Sodium (Lovenox) 40 mg SC DAILY [facility] PRN Reason: Protocol Last Admin: 11/05/16 08:37 Dose: 40 mg Famotidine (Pepcid) 40 mg PO HS [facility] Last Admin: 11/05/16 21:24 Dose: 40 mg Meropenem 1 gm/ Sodium (Chloride) 100 mls @ 100 mls/hr IVPB Q12 [facility] Last Admin: 11/05/16 21:11 Dose: 100 mls/hr Losartan Potassium (Cozaar) 100 mg PO DAILY [facility] Last Admin: 11/05/16 08:36 Dose: 100 mg Metoprolol Succinate (Toprol Xl) 50 mg PO DAILY [facility] Last Admin: 11/05/16 08:41 Dose: 50 mg Ondansetron HCl (Zofran Inj) 4 mg IVP Q6 PRN PRN Reason: Nausea/Vomiting - Labs Labs: 11/06/16 05:55 11/06/16 05:55 PT 11.4 SECONDS (9.6-11.2) H 11/03/16 20:11 INR 1.10 (0.92-1.08) H 11/03/16 20:11 APTT 32.5 SECONDS (23.3-32.5) 11/03/16 20:11 - Constitutional Appears: No Acute Distress - Head Exam Head Exam: ATRAUMATIC, NORMOCEPHALIC - Eye Exam Eye Exam: Normal appearance - Respiratory Exam Respiratory Exam: Rales, Wheezes Additional comments: B/L rales lung bases, scattered wheezing anterior chest - Cardiovascular Exam Cardiovascular Exam: REGULAR RHYTHM, +S1, +S2 Additional comments: systolic 3/6 aortic murmur - GI/Abdominal Exam GI & Abdominal Exam: Soft, Normal Bowel Sounds. absent: Tenderness - Extremities Exam Extremities Exam: Normal Inspection. absent: Pedal Edema - Neurological Exam Neurological Exam: Alert, Awake - Skin Skin Exam: Intact Assessment and Plan - Assessment and Plan (Free Text) Plan: 81 yo , f, admitted for acute pylonephritis and Sepsis 1)Acute Pyleonephritis - UA positive - UCx preliminary echericha coli - Rocephin 1gram IVPB daily -meropenem 1g BID - ID consult Ehsan appreciated: c/w rocephin, added meropenem 1g BID and amikacin - Repeat CBC & BMP in the a.m. 2) Sepsis with bacteremia - SIRS Criteria (Temp 100.4 + HR>90 + WBC12) and Source of infection- UTI -Blood culture: echericha coli. - Rocephin 1gram IVPB daily - ID consult appreciated. repeat Blood cx, Echo 3) Dyspnea - Possible secondary to acute CHF . - Echo 08/2015 Mod aortic stenosis, aort regurg. EF 55% -Echo, AVG, ProbNP -Lasix 40 mg IV stat -Transfer to telemetry Cardio consult suggested. -Pulmonology consult suggested. -CXR Right middle lobe atelectasis or infiltrate. 5 mm nodular density projects over the medial right clavicle -Angiotnesin conver, quantiferon gold 3)Leucocytosis - secondary to pyelonephritis -resolved - Rocephin 1gram IVPB daily - Repeat CBC in the a.m. 4)-Hypokalemia - resolved -K 3.6 -F/U CMP 5)Hx of Stroke- 13 years ago monitor - Continue Plavix 75mg po daily 6)HTN - Continue Metoprolol Succinate 50mg po daily - Continue Amlodipine 10mg po daily - Continue Losartan 100mg po daily 7)Hx of Rt. Hip Fx - Physical therapy evaluated. Recommends TCU - Fall precautions in place 8)DVT prophylaxis - Lovenox 40mg sc <Tylor Dias - Last Filed: 11/12/16 07:08> Objective - Vital Signs/Intake and Output Vital Signs (last 24 hours): Temp Pulse Resp BP Pulse Ox 98.1 F 82 18 128/61 96 11/11/16 13:00 11/11/16 13:00 11/11/16 13:00 11/11/16 13:00 11/11/16 13:00 - Labs Labs: 11/10/16 06:50 11/10/16 06:50 PT 11.4 SECONDS (9.6-11.2) H 11/03/16 20:11 INR 1.10 (0.92-1.08) H 11/03/16 20:11 APTT 32.5 SECONDS (23.3-32.5) 11/03/16 20:11 Attending/Attestation - Attestation I have personally seen and examined this patient.: Yes I have fully participated in the care of the patient.: Yes I have reviewed all pertinent clinical information, including history, physical exam and plan: Yes
[2016-11-06] MEDS ORDERED: MethylPREDNISolone 40 mg Vial ONE (08:10)
[2016-11-06] MEDS ORDERED: Albuterol-Ipratrop 3 mg / 0.5 (3 ml) UD INH STA (08:12)
[2016-11-06 08:45] LABS: ABG ALLEN TEST YES; ARTERIAL BLOOD GAS HCO3 23.4 mmol/L (21-28); ARTERIAL BLOOD GAS O2 CAPACITY 15.3 mL/dL (16-24); ARTERIAL BLOOD GAS O2 CONTENT 14.7 ML/dL (15-23); ARTERIAL BLOOD GAS PH 7.46 (7.35-7.45); ARTERIAL BLOOD GAS PO2 62 mm/Hg (80-100); ARTERIAL BLOOD HGB O2 SAT 93.4 % (95.0-98.0); CARBOXYHEMOGLOBIN 1.6 % (0.5-1.5); HHB 4.1 % (0.0-5.0)
[2016-11-06] MEDS: Metoprolol Succinate 50 mg XL Tab PO SCH (08:48)
[2016-11-06] MEDS: Enoxaparin 40 mg Syringe SC SCH (08:49)
[2016-11-06] MEDS: Meropenem 1 GM in Sodium Chloride 0.9% 100 ML IVPB SCH ×2 (08:55→21:32)
[2016-11-06] MEDS ORDERED: Sodium Chloride 0.9% 50 ML IV ONE (10:13)
[2016-11-06] MEDS ORDERED: Iodixanol 320 MG/ML 100 ML BOTTLE IV ONE (10:13)
--- NOTE | 2016-11-06 11:31 | CARD ---
APPROVED REPORT EXAM: Two-dimensional and M-mode echocardiogram with Doppler and color Doppler. Other Information Quality : GoodRhythm : NSR INDICATION Infection: 2D DIMENSIONS IVSd1.00 (0.7-1.1cm)LVDd4.85 (3.9-5.9cm) LVOT Diameter1.95 (1.8-2.4cm)PWd0.75 (0.7-1.1cm) IVSs0.93 (0.8-1.2cm)LVDs3.32 (2.5-4.0cm) FS (%) 31.6 %PWs1.31 (0.8-1.2cm) M-Mode DIMENSIONS Left Atrium (MM)5.35 (2.5-4.0cm)Aortic Root2.85 (2.2-3.7cm) Aortic Valve AoV Peak Vsgzmnnc741.0cm/sAoV VTI67.3cmAO Peak GR.46mmHg LVOT Peak Yomajuzu868.6cm/sLVOT VTI21.04cmAO Mean GR.29mmHg KATLYN (VMAX)0.62rp4LIP (VTI)0.58cm2 Mitral Valve MV E Btvkawic786.1cm/sMV DECEL FBPG554rjWC A Vejafaen443.4cm/s MV GHK66tfA/A ratio1.2MVA (PHT)3.45cm2 TDI E/Lateral E'0.0E/Medial E'0.0 Pulmonary Valve PV Peak Ttdempdj035.3cm/s Tricuspid Valve TR Peak Ojewzhdb300hl/sRAP XLRACHYQ14gfRjTL Peak Gr.26mmHg DVJM43sgLr LEFT VENTRICLE The left ventricle is normal size. There is normal left ventricular wall thickness. Left ventricle systolic function is normal. The Ejection Fraction is 55-60%. There is normal LV segmental wall motion. Transmitral Doppler flow pattern is Grade I-abnormal relaxation pattern. RIGHT VENTRICLE The right ventricle is normal size. There is normal right ventricular wall thickness. The right ventricular systolic function is normal. ATRIA The left atrium is moderately dilated. The right atrium size is normal. AORTIC VALVE The aortic valve is severely sclerotic. No aortic regurgitation is present. There is severe valvular aortic stenosis. Calculated aortic valve area is 0.92 cm2 with maximum pressure gradient of 56 mmHg and mean pressure gradient of 32 mmHg. MITRAL VALVE Mitral annular calcification is moderate. There is no evidence of mitral valve prolapse. There is no mitral valve stenosis. Mitral regurgitation is mild to moderate. TRICUSPID VALVE The tricuspid valve is normal in structure and function. There is mild tricuspid regurgitation. Right ventricular systolic pressure is estimated at 36 mmHg. There is mild pulmonary hypertension. PULMONIC VALVE The pulmonary valve is normal in structure and function. There is no pulmonic valvular regurgitation. GREAT VESSELS The aortic root is normal in size. The IVC is normal in size and collapses >50% with inspiration. PERICARDIAL EFFUSION The pericardium appears normal. <Conclusion> The left ventricle is normal size. There is normal left ventricular wall thickness. There is normal LV segmental wall motion. Left ventricle systolic function is normal. The Ejection Fraction is 55-60%. Transmitral Doppler flow pattern is Grade I-abnormal relaxation pattern. The left atrium is moderately dilated. The aortic valve is severely sclerotic. There is severe valvular aortic stenosis. Calculated aortic valve area is 0.92 cm2 with maximum pressure gradient of 56 mmHg and mean pressure gradient of 32 mmHg. Mitral regurgitation is mild to moderate.
--- NOTE | 2016-11-06 11:35 | CT ---
PROCEDURE: CT Chest with contrast (Pulmonary Angiogram) HISTORY: Tachypnea, hilar nodes, h/o granulomatous changes COMPARISON: None available. TECHNIQUE: Axial computed tomography images were obtained of the chest in the pulmonary arterial phase of enhancement. Coronal and sagittal reformatted images were created and reviewed. Intravenous contrast dose: 99 mL Visipaque 320 Radiation dose: Total exam DLP = 363.32 mGy-cm. FINDINGS: PULMONARY ARTERIES: Unremarkable. No pulmonary embolism. AORTA: No acute findings. No thoracic aortic aneurysm. LUNGS: Bilateral lower lobe compressive atelectasis secondary to pleural effusions. Alveolar opacity in right lower lobe, nonspecific. Possible pneumonia. No abnormal opacity elsewhere. Previous dense left lower lobe consolidation has resolved. Calcified granuloma anterior segment right upper lobe. Calcified right upper lobe granulomata. Curvilinear calcifications seen in right middle lobe. This has an appearance of central calcification. This should be correlated with any past history of thoracic surgery. PLEURAL SPACES: Small bilateral pleural effusion. This pleural fusion extends to the apex on the right side. HEART: Mild cardiomegaly. Coronary arterial calcification. LYMPH NODES: No significant bulky lymphadenopathy. There are old calcified mediastinal and hilar lymph nodes identified consistent with old granulomatous disease. BONES, CHEST WALL: Unremarkable. No fracture or destructive lesion OTHER FINDINGS: Small hiatal hernia. IMPRESSION: No evidence of pulmonary embolism. Old granulomatous disease with calcified mediastinal and hilar nodes. Small bilateral pleural effusions with compressive atelectasis in lower lobes. Right lower lobe alveolar opacity. Possible pneumonia. . Small hiatal hernia.
--- NOTE | 2016-11-06 11:42 | CP.PCM.CON ---
History of Present Illness - History of Present Illness History of Present Illness: Medical record reviewed and case discussed with PMD and resident. Elderly [place] female admitted initially because of UTI and sepsis, has developed SOB and cough with CXR showing congested bronchovascular markings, calcified hilar and mediastinal nodes and possible left lower lobe retrocardiac density. She had been hospitalized with pneumonia in the past from which she recovered uneventfully. She denies chest pain or hemoptysis, but had some bronchospasm occur overnight. Past Patient History - Infectious Disease Hx of Infectious Diseases: None - Past Medical History & Family History Past Medical History?: Yes - Past Social History Smoking Status: Never Smoked Chewing Tobacco Use: No Cigar Use: No Alcohol: None Drugs: Denies - CARDIAC Hx Cardiac Disorders: Yes Hx Hypercholesterolemia: Yes Hx Hypertension: Yes - PULMONARY Hx Respiratory Disorders: Yes Hx Pneumonia: Yes Hx Pulmonary Embolism: No - NEUROLOGICAL Hx Neurological Disorder: Yes Hx Transient Ischemic Attacks (TIA): Yes - HEENT Hx HEENT Problems: No - RENAL Hx Chronic Kidney Disease: No - ENDOCRINE/METABOLIC Hx Endocrine Disorders: No - HEMATOLOGICAL/ONCOLOGICAL Hx Blood Disorders: Yes Hx Anemia: Yes Hx Human Immunodeficiency Virus (HIV): No - INTEGUMENTARY Hx Dermatological Problems: No - MUSCULOSKELETAL/RHEUMATOLOGICAL Hx Musculoskeletal Disorders: Yes Hx Arthritis: Yes Hx Falls: Yes Hx Unsteady Gait: Yes - GASTROINTESTINAL Hx Gastrointestinal Disorders: Yes Hx Hemorrhoids: Yes (and were noted on this admission) Hx Nausea: Yes (prior to this admission) Hx Vomiting: Yes (prior to this admission for three days) - GENITOURINARY/GYNECOLOGICAL Hx Genitourinary Disorders: No - PSYCHIATRIC Hx Substance Use: No - SURGICAL HISTORY Hx Surgeries: Yes Hx Orthopedic Surgery: Yes (right hip surgery) - ANESTHESIA Hx Anesthesia: Yes Hx Anesthesia Reactions: No Hx Malignant Hyperthermia: No Meds Allergies/Adverse Reactions: Allergies Allergy/AdvReac Type Severity Reaction Status Date / Time No Known Allergies Allergy Verified 11/03/16 18:55 - Medications Medications: Current Medications Acetaminophen (Tylenol 325mg Tab) 650 mg PO Q6 PRN PRN Reason: Fever >100.4 F Last Admin: 11/06/16 08:47 Dose: 650 mg Albuterol/Ipratropium (Duoneb 3 Mg/0.5 Mg (3 Ml) Ud) 3 ml INH RQ6 PRN PRN Reason: Shortness of Breath Last Admin: 11/06/16 06:27 Dose: 3 ml Amikacin Sulfate (Amikacin 500 Mg/2ml Inj) 250 mg IM Q24H [facility] Stop: 11/07/16 19:46 Amlodipine Besylate (Norvasc) 10 mg PO DAILY [facility] Last Admin: 11/06/16 08:49 Dose: 10 mg Clopidogrel Bisulfate (Plavix) 75 mg PO DAILY [facility] Last Admin: 11/06/16 08:49 Dose: 75 mg Enoxaparin Sodium (Lovenox) 40 mg SC DAILY [facility] PRN Reason: Protocol Last Admin: 11/06/16 08:49 Dose: 40 mg Famotidine (Pepcid) 40 mg PO HS [facility] Last Admin: 11/05/16 21:24 Dose: 40 mg Meropenem 1 gm/ Sodium (Chloride) 100 mls @ 100 mls/hr IVPB Q12 [facility] Last Admin: 11/06/16 08:55 Dose: 100 mls/hr Losartan Potassium (Cozaar) 100 mg PO DAILY [facility] Last Admin: 11/06/16 08:50 Dose: 100 mg Metoprolol Succinate (Toprol Xl) 50 mg PO DAILY [facility] Last Admin: 11/06/16 08:48 Dose: 50 mg Ondansetron HCl (Zofran Inj) 4 mg IVP Q6 PRN PRN Reason: Nausea/Vomiting Physical Exam - Additional Findings Additional findings: Elderly, debilitated female, mild dyspnea at rest. Neck is supple and trachea midline. No visible JVD. No cyanosis or clubbing, no edema. No dullness on percussion of the anterior chest wall. No palpable subcutaneous emphysema. Breath sounds are diminished bilaterally. Scattered sonorous rhonchi bilaterally. No audible wheezes or bronchial breath sounds. Heart sounds slightly distant. Results - Vital Signs Recent Vital Signs: Last Vital Signs Temp 99.9 F H 11/06/16 07:54 Pulse 82 11/06/16 08:50 Resp 20 11/06/16 07:54 BP 104/62 11/06/16 10:07 Pulse Ox 97 11/06/16 07:54 - Labs Result Diagrams: 11/06/16 05:55 11/07/16 21:00 Labs: Laboratory Results - last 24 hr 11/06/16 11/06/16 11/06/16 05:55 05:58 08:43 WBC 7.7 RBC 3.87 Hgb 10.6 L Hct 32.8 L MCV 84.9 MCH 27.4 MCHC 32.3 L RDW 13.9 Plt Count 140 pCO2 30 L pO2 62 L HCO3 23.4 ABG pH 7.46 H ABG Total CO2 22.2 ABG O2 Saturation 95.8 ABG O2 Content 14.7 L ABG Base Excess -1.8 ABG Hemoglobin 11.2 L ABG Carboxyhemoglobin 1.6 H POC ABG HHb (Measured) 4.1 ABG Methemoglobin 1.0 ABG O2 Capacity 15.3 L Boyd Test Yes A-a O2 Difference 100.0 Hgb O2 Saturation 93.4 L FiO2 28.0 Sodium 130 L Potassium 3.8 Chloride 102 Carbon Dioxide 21 L Anion Gap 11 BUN 12 Creatinine 0.6 L Est GFR ( Amer) > 60 Est GFR (Non-Af Amer) > 60 POC Glucose (mg/dL) 98 Random Glucose 101 Calcium 9.3 Total Bilirubin 0.5 AST 18 ALT 23 Alkaline Phosphatase 108 Total Protein 6.4 Albumin 3.0 L Globulin 3.4 Albumin/Globulin Ratio 0.9 L Assessment & Plan (1) Pleural effusion Status: Acute Priority: High Comment: Small bilateral basal effusions. (2) Atelectasis Status: Acute Priority: High Comment: Passive basal atelectasis, right > left. (3) Hilar lymphadenopathy Status: Chronic Priority: Medium Comment: Bilateral calcified hilar and mediastinal nodes. Patient had surgery in the right lower lung field in the past. She cannot remember exactly what for , but says it "was something wrong". Findings are consistent with prior granulomatous lung disease and tuberculosis may have been the etiology. - Assessment and Plan (Free Text) Assessment: On my read of the lung CT angio I do not see any evidence of pulmonary embolism. I agree with the current management and workup. Thanks. - Date & Time Date: 11/06/16 Time: 11:45
--- NOTE | 2016-11-07 06:50 | CP.PCM.PN ---
<AllegraCarissa doe - Last Filed: 11/07/16 14:49> Subjective - Date & Time of Evaluation Date of Evaluation: 11/07/16 Time of Evaluation: 07:30 - Subjective Subjective: Patient seen and examined bedside. Reports SOB, using O2 NC and with taquipnea RR: 32 b/min and supraclavicular retraction. No AMS. Able to speak in full sentences. denies chest pain, nausea,vomiting, abdominal pain. Voiding frequent with normal output. EKG stat showed A fib with RVR Objective - Vital Signs/Intake and Output Vital Signs (last 24 hours): Temp Pulse Resp BP Pulse Ox 99.9 F H 91 H 18 138/74 94 L 11/07/16 04:49 11/07/16 04:49 11/07/16 04:50 11/07/16 04:49 11/07/16 04:49 Intake and Output: 11/06/16 11/07/16 18:59 06:59 Intake Total 500 Output Total 1100 Balance -600 - Medications Medications: Current Medications Acetaminophen (Tylenol 325mg Tab) 650 mg PO Q6 PRN PRN Reason: Fever >100.4 F Last Admin: 11/06/16 08:47 Dose: 650 mg Albuterol/Ipratropium (Duoneb 3 Mg/0.5 Mg (3 Ml) Ud) 3 ml INH RQ6 PRN PRN Reason: Shortness of Breath Last Admin: 11/06/16 06:27 Dose: 3 ml Amlodipine Besylate (Norvasc) 10 mg PO DAILY [facility] Last Admin: 11/06/16 08:49 Dose: 10 mg Clopidogrel Bisulfate (Plavix) 75 mg PO DAILY [facility] Last Admin: 11/06/16 08:49 Dose: 75 mg Enoxaparin Sodium (Lovenox) 40 mg SC DAILY [facility] PRN Reason: Protocol Last Admin: 11/06/16 08:49 Dose: 40 mg Famotidine (Pepcid) 40 mg PO HS [facility] Last Admin: 11/06/16 21:33 Dose: 40 mg Meropenem 1 gm/ Sodium (Chloride) 100 mls @ 100 mls/hr IVPB Q12 [facility] Last Admin: 11/06/16 21:32 Dose: 100 mls/hr Amikacin Sulfate 250 mg/ (Sodium Chloride) 101 mls @ 100.609 mls/hr IVPB Q24H [facility] Stop: 11/09/16 17:01 Last Admin: 11/06/16 17:00 Dose: 100.609 mls/hr Losartan Potassium (Cozaar) 100 mg PO DAILY [facility] Last Admin: 11/06/16 08:50 Dose: 100 mg Metoprolol Succinate (Toprol Xl) 50 mg PO DAILY [facility] Last Admin: 11/06/16 08:48 Dose: 50 mg Ondansetron HCl (Zofran Inj) 4 mg IVP Q6 PRN PRN Reason: Nausea/Vomiting - Labs Labs: 11/06/16 05:55 11/06/16 05:55 PT 11.4 SECONDS (9.6-11.2) H 11/03/16 20:11 INR 1.10 (0.92-1.08) H 11/03/16 20:11 APTT 32.5 SECONDS (23.3-32.5) 11/03/16 20:11 - Head Exam Head Exam: ATRAUMATIC, NORMOCEPHALIC - Eye Exam Eye Exam: Normal appearance - Neck Exam Additional comments: JVD - Respiratory Exam Respiratory Exam: Rales. absent: Rhonchi, Wheezes Additional comments: B/L lung rales, 2/3 right lung field and left lung base - Cardiovascular Exam Cardiovascular Exam: Irregular Rhythm, +S1, +S2, Murmur Additional comments: systolic murmur 3/6 - GI/Abdominal Exam GI & Abdominal Exam: Soft, Normal Bowel Sounds. absent: Tenderness, Rebound - Extremities Exam Extremities Exam: Normal Inspection. absent: Pedal Edema - Neurological Exam Neurological Exam: Alert, Awake - Psychiatric Exam Psychiatric exam: Normal Mood - Skin Skin Exam: Intact Assessment and Plan - Assessment and Plan (Free Text) Plan: 81 yo , f, admitted for acute pylonephritis and Sepsis 1)Acute Pyleonephritis - UA positive - UCx echericha coli -meropenem 1g BID 3rd day today -amikacin 2nd day - ID consult Manocchio appreciated: c/w meropenen and amikacin - F/U CBC, CMP 2) Sepsis with bacteremia -resolving - SIRS Criteria (Temp 100.4 + HR>90 + WBC12) and Source of infection- UTI on admission -Blood culture: echericha coli. 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 EF 55% -Echo 11/06/15 Sev aortic stenosis. EF: 55-6-% -ProbNP 3010 -Lasix 40 mg IV stat -Cardio consult appreciated: Cardizem drip, digoxin -Pulmonology consult appreciated. no PE -CXR Right middle lobe atelectasis or infiltrate. 5 mm nodular density projects over the medial right clavicle -Angiotnesin conver normal -quantiferon gold pending 4) Atrial Fibrillation with RVR -EKG showed Atrial fib with RVR HR: 144 b/m -Cardizem drip, digoxin -Cardiology consult appreciated 5)Hx of Stroke- 13 years ago monitor - Continue Plavix 75mg po daily 6)HTN - Continue Metoprolol Succinate 50mg po daily - Continue Amlodipine 10mg po daily - Continue Losartan 100mg po daily 7)Hx of Rt. Hip Fx - Physical therapy evaluated. Recommends TCU - Fall precautions in place 8)DVT prophylaxis - Lovenox 40mg sc <Sammy Serrano - Last Filed: 11/08/16 06:36> Objective - Vital Signs/Intake and Output Vital Signs (last 24 hours): Temp Pulse Resp BP Pulse Ox 98.3 F 88 15 127/72 98 11/08/16 05:16 11/08/16 05:16 11/08/16 05:16 11/08/16 05:16 11/08/16 05:16 - Medications Medications: Current Medications Acetaminophen (Tylenol 325mg Tab) 650 mg PO Q6 PRN PRN Reason: Fever >100.4 F Last Admin: 11/06/16 08:47 Dose: 650 mg Amlodipine Besylate (Norvasc) 10 mg PO DAILY [facility] Last Admin: 11/07/16 09:00 Dose: Not Given Clopidogrel Bisulfate (Plavix) 75 mg PO DAILY [facility] Last Admin: 11/07/16 10:55 Dose: 75 mg Enoxaparin Sodium (Lovenox) 40 mg SC DAILY [facility] PRN Reason: Protocol Last Admin: 11/07/16 10:55 Dose: 40 mg Famotidine (Pepcid) 40 mg PO HS [facility] Last Admin: 11/07/16 21:26 Dose: 40 mg Meropenem 1 gm/ Sodium (Chloride) 100 mls @ 100 mls/hr IVPB Q12 [facility] Last Admin: 11/07/16 21:26 Dose: 100 mls/hr Amikacin Sulfate 250 mg/ (Sodium Chloride) 101 mls @ 100.609 mls/hr IVPB Q24H [facility] Stop: 11/09/16 17:01 Last Admin: 11/07/16 16:58 Dose: 100.609 mls/hr Diltiazem HCl 125 mg/ Sodium (Chloride) 125 mls @ 5 mls/hr IV .Q24H ONE; 5 MG/ HR PRN Reason: Protocol Stop: 11/08/16 08:57 Last Admin: 11/07/16 10:14 Dose: 5 mls/hr Losartan Potassium (Cozaar) 100 mg PO DAILY [facility] Last Admin: 11/07/16 09:00 Dose: Not Given Metoprolol Succinate (Toprol Xl) 50 mg PO DAILY [facility] Last Admin: 11/07/16 09:00 Dose: Not Given Ondansetron HCl (Zofran Inj) 4 mg IVP Q6 PRN PRN Reason: Nausea/Vomiting - Labs Labs: 11/06/16 05:55 11/07/16 21:00 PT 11.4 SECONDS (9.6-11.2) H 11/03/16 20:11 INR 1.10 (0.92-1.08) H 11/03/16 20:11 APTT 32.5 SECONDS (23.3-32.5) 11/03/16 20:11 Attending/Attestation - Attestation I have personally seen and examined this patient.: Yes I have fully participated in the care of the patient.: Yes I have reviewed all pertinent clinical information, including history, physical exam and plan: Yes
[2016-11-07] MEDS ORDERED: Metoprolol 1 mg/ml Inj IVP STA ×2 (07:12→07:45)
[2016-11-07 07:26] LABS: BLOOD UREA NITROGEN 14 mg/dl (7-17); CALCIUM 9.2 mg/dL (8.4-10.2); CARBON DIOXIDE 25 mmol/L (22-30); CHLORIDE 101 mmol/L (98-107); GFR AFRICAN-AMERICAN > 60; GLUCOSE,RANDOM 100 mg/dL (65-105); SODIUM 128 mmol/l (132-148)
[2016-11-07 07:36] LABS: ABG ALLEN TEST YES; ARTERIAL BLOOD GAS HCO3 27.6 mmol/L (21-28); ARTERIAL BLOOD GAS O2 CAPACITY 14.8 mL/dL (16-24); ARTERIAL BLOOD GAS O2 CONTENT 14.3 ML/dL (15-23); ARTERIAL BLOOD GAS PH 7.52 (7.35-7.45); ARTERIAL BLOOD GAS PO2 65 mm/Hg (80-100); ARTERIAL BLOOD HGB O2 SAT 94.2 % (95.0-98.0); CARBOXYHEMOGLOBIN 1.6 % (0.5-1.5); METHEMOGLOBIN 1.2 % (0.0-3.0)
[2016-11-07] MEDS ORDERED: Metoprolol 1 mg/ml Inj IVP ONE (07:39)
--- NOTE | 2016-11-07 08:19 | CP.PCM.PN ---
<AugielexyUrban orellana - Last Filed: 11/07/16 09:47> Subjective - Date & Time of Evaluation Date of Evaluation: 11/07/16 Time of Evaluation: 07:00 - Subjective Subjective: Made aware of new changes in patient's heart rate. 12-lead EKG ordered STAT at bedside: irregularly irregular @130bpm Initial BP: 126/73 Afebrile. 92% Saturation on 2L High Flow O2; HR: 120-140+ Patient with increased respiratory effort. RR@32 Speaking in full sentences. No chest pain. Denies palpitations. PE: HEENT: EOMI, LILA +JVD Heart: Irregularly irregular with systolic ejection murmur Lungs: Crackles at bilateral 2/3rd lung olivas Abd: Soft, NT, ND Ext: No edema A/P 1. Acute Afib 2. Pulmonary Edema 1. Rate control- Lopressor 5mg IVP x2 Stabilized to rate of 100-120; Asymptomatic Last BP 111/72 Trop x3 ordered BMP stat ABG stat Digoxin and Cardizem to be initiated 2. Diuresis- Lasix 40mg IV x1 given Saturation improved to 95% Less labored breathing Objective - Vital Signs/Intake and Output Vital Signs (last 24 hours): Temp Pulse Resp BP Pulse Ox 99.9 F H 125 H 18 123/72 94 L 11/07/16 04:49 11/07/16 07:56 11/07/16 08:17 11/07/16 07:56 11/07/16 04:49 - Medications Medications: Current Medications Acetaminophen (Tylenol 325mg Tab) 650 mg PO Q6 PRN PRN Reason: Fever >100.4 F Last Admin: 11/06/16 08:47 Dose: 650 mg Albuterol/Ipratropium (Duoneb 3 Mg/0.5 Mg (3 Ml) Ud) 3 ml INH RQ6 PRN PRN Reason: Shortness of Breath Last Admin: 11/06/16 06:27 Dose: 3 ml Amlodipine Besylate (Norvasc) 10 mg PO DAILY [facility] Last Admin: 11/06/16 08:49 Dose: 10 mg Clopidogrel Bisulfate (Plavix) 75 mg PO DAILY [facility] Last Admin: 11/06/16 08:49 Dose: 75 mg Enoxaparin Sodium (Lovenox) 40 mg SC DAILY [facility] PRN Reason: Protocol Last Admin: 11/06/16 08:49 Dose: 40 mg Famotidine (Pepcid) 40 mg PO HS [facility] Last Admin: 11/06/16 21:33 Dose: 40 mg Meropenem 1 gm/ Sodium (Chloride) 100 mls @ 100 mls/hr IVPB Q12 [facility] Last Admin: 11/06/16 21:32 Dose: 100 mls/hr Amikacin Sulfate 250 mg/ (Sodium Chloride) 101 mls @ 100.609 mls/hr IVPB Q24H [facility] Stop: 11/09/16 17:01 Last Admin: 11/06/16 17:00 Dose: 100.609 mls/hr Losartan Potassium (Cozaar) 100 mg PO DAILY [facility] Last Admin: 11/06/16 08:50 Dose: 100 mg Metoprolol Succinate (Toprol Xl) 50 mg PO DAILY [facility] Last Admin: 11/06/16 08:48 Dose: 50 mg Ondansetron HCl (Zofran Inj) 4 mg IVP Q6 PRN PRN Reason: Nausea/Vomiting - Labs Labs: 11/06/16 05:55 11/07/16 06:20 PT 11.4 SECONDS (9.6-11.2) H 11/03/16 20:11 INR 1.10 (0.92-1.08) H 11/03/16 20:11 APTT 32.5 SECONDS (23.3-32.5) 11/03/16 20:11 <Sammy Serrano - Last Filed: 11/08/16 06:36> Objective - Vital Signs/Intake and Output Vital Signs (last 24 hours): Temp Pulse Resp BP Pulse Ox 98.3 F 88 15 127/72 98 11/08/16 05:16 11/08/16 05:16 11/08/16 05:16 11/08/16 05:16 11/08/16 05:16 - Medications Medications: Current Medications Acetaminophen (Tylenol 325mg Tab) 650 mg PO Q6 PRN PRN Reason: Fever >100.4 F Last Admin: 11/06/16 08:47 Dose: 650 mg Amlodipine Besylate (Norvasc) 10 mg PO DAILY [facility] Last Admin: 11/07/16 09:00 Dose: Not Given Clopidogrel Bisulfate (Plavix) 75 mg PO DAILY [facility] Last Admin: 11/07/16 10:55 Dose: 75 mg Enoxaparin Sodium (Lovenox) 40 mg SC DAILY [facility] PRN Reason: Protocol Last Admin: 11/07/16 10:55 Dose: 40 mg Famotidine (Pepcid) 40 mg PO HS [facility] Last Admin: 11/07/16 21:26 Dose: 40 mg Meropenem 1 gm/ Sodium (Chloride) 100 mls @ 100 mls/hr IVPB Q12 [facility] Last Admin: 11/07/16 21:26 Dose: 100 mls/hr Amikacin Sulfate 250 mg/ (Sodium Chloride) 101 mls @ 100.609 mls/hr IVPB Q24H [facility] Stop: 11/09/16 17:01 Last Admin: 11/07/16 16:58 Dose: 100.609 mls/hr Diltiazem HCl 125 mg/ Sodium (Chloride) 125 mls @ 5 mls/hr IV .Q24H [facility]; 5 MG/ HR PRN Reason: Protocol Stop: 11/08/16 08:57 Last Admin: 11/07/16 10:14 Dose: 5 mls/hr Losartan Potassium (Cozaar) 100 mg PO DAILY [facility] Last Admin: 11/07/16 09:00 Dose: Not Given Metoprolol Succinate (Toprol Xl) 50 mg PO DAILY [facility] Last Admin: 11/07/16 09:00 Dose: Not Given Ondansetron HCl (Zofran Inj) 4 mg IVP Q6 PRN PRN Reason: Nausea/Vomiting - Labs Labs: 11/06/16 05:55 11/07/16 21:00 PT 11.4 SECONDS (9.6-11.2) H 11/03/16 20:11 INR 1.10 (0.92-1.08) H 11/03/16 20:11 APTT 32.5 SECONDS (23.3-32.5) 11/03/16 20:11 Attending/Attestation - Attestation I have personally seen and examined this patient.: Yes I have fully participated in the care of the patient.: Yes I have reviewed all pertinent clinical information, including history, physical exam and plan: Yes
[2016-11-07] MEDS: Metoprolol Succinate 50 mg XL Tab PO SCH (09:00)
[2016-11-07] MEDS ORDERED: Digoxin 500 mcg/2ml (0.5 mg/2ml) Inj IVP ONE ×2 (09:10→14:00)
--- NOTE | 2016-11-07 09:58 | CP.PCM.CON ---
History of Present Illness - History of Present Illness History of Present Illness: Full Note Dictated Severe Aortic Valve Stenosis CHF (LV, Diastolic Ac) due to A Fib HTN Recent Urosepsis S/P Hip Replacement IV Cardizem followed by drip IV Digoxin to slow down HR (Lasix waws given 2 hrs back ) Past Patient History - Infectious Disease Hx of Infectious Diseases: None - Past Medical History & Family History Past Medical History?: Yes - Past Social History Smoking Status: Never Smoked - CARDIAC Hx Hypercholesterolemia: Yes Hx Hypertension: Yes - PULMONARY Hx Pneumonia: Yes Hx Pulmonary Embolism: No - NEUROLOGICAL Hx Transient Ischemic Attacks (TIA): Yes - HEENT Hx HEENT Problems: No - RENAL Hx Chronic Kidney Disease: No - ENDOCRINE/METABOLIC Hx Endocrine Disorders: No - HEMATOLOGICAL/ONCOLOGICAL Hx Human Immunodeficiency Virus (HIV): No - INTEGUMENTARY Hx Dermatological Problems: No - MUSCULOSKELETAL/RHEUMATOLOGICAL Hx Falls: No - GASTROINTESTINAL Hx Hemorrhoids: Yes (and were noted on this admission) Hx Nausea: Yes (prior to this admission) Hx Vomiting: Yes (prior to this admission for three days) - GENITOURINARY/GYNECOLOGICAL Hx Genitourinary Disorders: No - PSYCHIATRIC Hx Substance Use: No - SURGICAL HISTORY Hx Surgeries: Yes Hx Orthopedic Surgery: Yes (right hip surgery) - ANESTHESIA Hx Anesthesia: Yes Hx Anesthesia Reactions: No Hx Malignant Hyperthermia: No Meds Allergies/Adverse Reactions: Allergies Allergy/AdvReac Type Severity Reaction Status Date / Time No Known Allergies Allergy Verified 11/03/16 18:55 - Medications Medications: Current Medications Acetaminophen (Tylenol 325mg Tab) 650 mg PO Q6 PRN PRN Reason: Fever >100.4 F Last Admin: 11/06/16 08:47 Dose: 650 mg Amlodipine Besylate (Norvasc) 10 mg PO DAILY [facility] Last Admin: 11/06/16 08:49 Dose: 10 mg Clopidogrel Bisulfate (Plavix) 75 mg PO DAILY [facility] Last Admin: 11/06/16 08:49 Dose: 75 mg Enoxaparin Sodium (Lovenox) 40 mg SC DAILY [facility] PRN Reason: Protocol Last Admin: 11/06/16 08:49 Dose: 40 mg Famotidine (Pepcid) 40 mg PO HS [facility] Last Admin: 11/06/16 21:33 Dose: 40 mg Meropenem 1 gm/ Sodium (Chloride) 100 mls @ 100 mls/hr IVPB Q12 [facility] Last Admin: 11/06/16 21:32 Dose: 100 mls/hr Amikacin Sulfate 250 mg/ (Sodium Chloride) 101 mls @ 100.609 mls/hr IVPB Q24H [facility] Stop: 11/09/16 17:01 Last Admin: 11/06/16 17:00 Dose: 100.609 mls/hr Diltiazem HCl 125 mg/ Sodium (Chloride) 125 mls @ 5 mls/hr IV .Q24H [facility]; 5 MG/ HR PRN Reason: Protocol Stop: 11/08/16 08:57 Losartan Potassium (Cozaar) 100 mg PO DAILY [facility] Last Admin: 11/06/16 08:50 Dose: 100 mg Metoprolol Succinate (Toprol Xl) 50 mg PO DAILY [facility] Last Admin: 11/06/16 08:48 Dose: 50 mg Ondansetron HCl (Zofran Inj) 4 mg IVP Q6 PRN PRN Reason: Nausea/Vomiting Results - Vital Signs Recent Vital Signs: Last Vital Signs Temp 99.9 F H 11/07/16 04:49 Pulse 125 H 11/07/16 07:56 Resp 18 11/07/16 08:17 BP 123/72 11/07/16 07:56 Pulse Ox 94 L 11/07/16 04:49 - Labs Result Diagrams: 11/06/16 05:55 11/07/16 06:20 Labs: Laboratory Results - last 24 hr 11/06/16 11/07/16 11/07/16 11:42 06:20 07:26 pCO2 pO2 HCO3 ABG pH ABG Total CO2 ABG O2 Saturation ABG O2 Content ABG Base Excess ABG Hemoglobin ABG Carboxyhemoglobin POC ABG HHb (Measured) ABG Methemoglobin ABG O2 Capacity Boyd Test A-a O2 Difference Hgb O2 Saturation FiO2 Sodium 128 L Potassium 4.0 Chloride 101 Carbon Dioxide 25 Anion Gap 6 L BUN 14 Creatinine 0.6 L Est GFR ( Amer) > 60 Est GFR (Non-Af Amer) > 60 Random Glucose 100 Calcium 9.2 Troponin I 0.0340 NT-Pro-B Natriuret Pep 3810 H 11/07/16 07:30 pCO2 32 L pO2 65 L HCO3 27.6 ABG pH 7.52 H ABG Total CO2 27.1 ABG O2 Saturation 96.9 ABG O2 Content 14.3 L ABG Base Excess 3.5 H ABG Hemoglobin 10.8 L ABG Carboxyhemoglobin 1.6 H POC ABG HHb (Measured) 3.0 ABG Methemoglobin 1.2 ABG O2 Capacity 14.8 L Boyd Test Yes A-a O2 Difference 180.0 Hgb O2 Saturation 94.2 L FiO2 40.0 Sodium Potassium Chloride Carbon Dioxide Anion Gap BUN Creatinine Est GFR ( Amer) Est GFR (Non-Af Amer) Random Glucose Calcium Troponin I NT-Pro-B Natriuret Pep
--- NOTE | 2016-11-07 10:38 | CP.PCM.PN ---
<Carissa Hollins - Last Filed: 11/08/16 12:03> Subjective - Date & Time of Evaluation Date of Evaluation: 11/08/16 Time of Evaluation: 07:35 - Subjective Subjective: Patient seen and examined bedside. Patient using O2 high flow. Breathing with less difficulty compared with yesterday. RR: 27 r/min. No overnight events. BMP last night normal. Tolerating diet. Objective - Vital Signs/Intake and Output Vital Signs (last 24 hours): Temp Pulse Resp BP Pulse Ox 98.3 F 70 22 97/61 L 97 11/08/16 08:10 11/08/16 08:10 11/08/16 12:00 11/08/16 08:10 11/08/16 08:10 - Medications Medications: Current Medications Acetaminophen (Tylenol 325mg Tab) 650 mg PO Q6 PRN PRN Reason: Fever >100.4 F Last Admin: 11/08/16 06:59 Dose: 650 mg Amlodipine Besylate (Norvasc) 10 mg PO DAILY [facility] Last Admin: 11/07/16 09:00 Dose: Not Given Clopidogrel Bisulfate (Plavix) 75 mg PO DAILY [facility] Last Admin: 11/08/16 09:13 Dose: 75 mg Digoxin (Lanoxin) 0.25 mg IVP ONCE ONE Stop: 11/08/16 12:11 Enoxaparin Sodium (Lovenox) 40 mg SC DAILY [facility] PRN Reason: Protocol Last Admin: 11/08/16 09:12 Dose: 40 mg Famotidine (Pepcid) 40 mg PO HS [facility] Last Admin: 11/07/16 21:26 Dose: 40 mg Meropenem 1 gm/ Sodium (Chloride) 100 mls @ 100 mls/hr IVPB Q12 [facility] Last Admin: 11/08/16 09:13 Dose: 100 mls/hr Amikacin Sulfate 250 mg/ (Sodium Chloride) 101 mls @ 100.609 mls/hr IVPB Q24H [facility] Stop: 11/09/16 17:01 Last Admin: 11/07/16 16:58 Dose: 100.609 mls/hr Losartan Potassium (Cozaar) 100 mg PO DAILY [facility] Last Admin: 11/07/16 09:00 Dose: Not Given Metoprolol Succinate (Toprol Xl) 50 mg PO DAILY [facility] Last Admin: 11/07/16 09:00 Dose: Not Given Ondansetron HCl (Zofran Inj) 4 mg IVP Q6 PRN PRN Reason: Nausea/Vomiting - Labs Labs: 11/06/16 05:55 11/07/16 21:00 PT 11.4 SECONDS (9.6-11.2) H 11/03/16 20:11 INR 1.10 (0.92-1.08) H 11/03/16 20:11 APTT 32.5 SECONDS (23.3-32.5) 11/03/16 20:11 - Constitutional Appears: No Acute Distress - Head Exam Head Exam: ATRAUMATIC, NORMOCEPHALIC - Eye Exam Eye Exam: Normal appearance - Respiratory Exam Respiratory Exam: Rales Additional comments: B/L lung bases with rales less compared with yesterday - Cardiovascular Exam Cardiovascular Exam: Irregular Rhythm, +S1, +S2, Murmur Additional comments: 3/6 systolic murmur - GI/Abdominal Exam GI & Abdominal Exam: Soft, Normal Bowel Sounds. absent: Guarding, Tenderness - Extremities Exam Extremities Exam: absent: Calf Tenderness, Normal Inspection - Neurological Exam Neurological Exam: Alert, Awake - Psychiatric Exam Psychiatric exam: Normal Affect - Skin Skin Exam: Intact <Ho Bone - Last Filed: 11/08/16 13:16> Subjective - Date & Time of Evaluation Date of Evaluation: 11/07/16 Time of Evaluation: 10:38 - Subjective Subjective: Case discussed with cardiology. Patient remains on High-Flow nasal canula with adequate oxygenation. Treated presently for A fib with rapid ventricular response. Lying in bed, awake and moaning. Not able to relate any specific complaints. No dependant edema or cyanosis. RR 20+ BPM, not labored. Pulse 100+ irregular. Tmax 99.9. Neck supple and trachea midline. No dullness on chest percussion. Medium rales in dependant zones of lower lobes bilaterally. No audible wheeze or bronchial breathing. Continue present respiratory and Infectious Disease regimen. Bilateral pleural effusions (R>L) small with basal atelectasis and RLL pneumonic infiltrate posteriorly. Prior RLL surgery with residual calcified nodules, ?granulomatous disease. Objective - Vital Signs/Intake and Output Vital Signs (last 24 hours): Temp Pulse Resp BP Pulse Ox 99.9 F H 130 H 18 110/70 94 L 11/07/16 04:49 11/07/16 10:14 11/07/16 08:17 11/07/16 10:14 11/07/16 04:49 Intake and Output: 11/06/16 11/07/16 23:59 11:59 Intake Total 500 Output Total 1100 Balance -600 - Medications Medications: Current Medications Acetaminophen (Tylenol 325mg Tab) 650 mg PO Q6 PRN PRN Reason: Fever >100.4 F Last Admin: 11/06/16 08:47 Dose: 650 mg Amlodipine Besylate (Norvasc) 10 mg PO DAILY [facility] Last Admin: 11/06/16 08:49 Dose: 10 mg Clopidogrel Bisulfate (Plavix) 75 mg PO DAILY [facility] Last Admin: 11/06/16 08:49 Dose: 75 mg Enoxaparin Sodium (Lovenox) 40 mg SC DAILY [facility] PRN Reason: Protocol Last Admin: 11/06/16 08:49 Dose: 40 mg Famotidine (Pepcid) 40 mg PO HS [facility] Last Admin: 11/06/16 21:33 Dose: 40 mg Meropenem 1 gm/ Sodium (Chloride) 100 mls @ 100 mls/hr IVPB Q12 [facility] Last Admin: 11/06/16 21:32 Dose: 100 mls/hr Amikacin Sulfate 250 mg/ (Sodium Chloride) 101 mls @ 100.609 mls/hr IVPB Q24H [facility] Stop: 11/09/16 17:01 Last Admin: 11/06/16 17:00 Dose: 100.609 mls/hr Diltiazem HCl 125 mg/ Sodium (Chloride) 125 mls @ 5 mls/hr IV .Q24H ONE; 5 MG/ HR PRN Reason: Protocol Stop: 11/08/16 08:57 Last Admin: 11/07/16 10:14 Dose: 5 mls/hr Losartan Potassium (Cozaar) 100 mg PO DAILY [facility] Last Admin: 11/06/16 08:50 Dose: 100 mg Metoprolol Succinate (Toprol Xl) 50 mg PO DAILY [facility] Last Admin: 11/06/16 08:48 Dose: 50 mg Ondansetron HCl (Zofran Inj) 4 mg IVP Q6 PRN PRN Reason: Nausea/Vomiting - Labs Labs: 11/06/16 05:55 11/07/16 06:20 PT 11.4 SECONDS (9.6-11.2) H 11/03/16 20:11 INR 1.10 (0.92-1.08) H 11/03/16 20:11 APTT 32.5 SECONDS (23.3-32.5) 11/03/16 20:11 Assessment and Plan (1) Pleural effusion Status: Acute (2) Atelectasis Status: Acute (3) Hilar lymphadenopathy Status: Chronic
[2016-11-07] MEDS: Enoxaparin 40 mg Syringe SC SCH (10:55)
[2016-11-07] MEDS: Meropenem 1 GM in Sodium Chloride 0.9% 100 ML IVPB SCH ×2 (10:55→21:26)
--- NOTE | 2016-11-07 12:30 | CON ---
DATE: 11/07/2016 She is hospitalized under Dr. Dias's care in room 405. HISTORY OF PRESENT ILLNESS: This 81-year-old female is known to me from having examined her prior to her hip surgery more than 7 years back. She was now hospitalized with urosepsis and was being treat ed with intravenous antibiotics, which involved a fair amount of intravenous hydration. She has had a history of aortic stenosis. She had never suffered a myocardial infarction, and she was never in c ongestive cardiac failure. This consultation was requested because the patient developed severe shor tness of breath and was transferred to the telemetry floor. Overnight, she has developed atrial fibr illation and has again developed severe dyspnea. PHYSICAL EXAMINATION: GENERAL: Shows an elderly female who is mildly dyspneic even while propped up in bed. VITAL SIGNS: Respiratory rate of 22 breaths per minute. Her heart rate was 120 beats per minute, having received intravenous metoprolol approximately an hour and a half before this examination. Her blood pressure was 110/70 mmHg. NECK: Her jugular venous pressure was very mildly elevated. EXTREMITIES: There was no edema over the lower extremities. The extremities were warm. Nailbeds ar e pink. There was no central or peripheral cyanosis. There was no clubbing. She was markedly kypho tic. HEART: The apex was not palpable. The first heart sound was normal. There was an ejection systolic murmur in the aortic area conducted to the base of the neck. The second heart sound was absent. LUNGS: There were scattered rales all over the chest. ABDOMEN: The liver and spleen were not palpable. Her electrocardiogram at admission showed sinus rhythm with an otherwise normal electrocardiographic pattern. An electrocardiogram taken this morning shows atrial fibrillation at a heart rate of 129 beats per mi nute with nonspecific ST changes, but no fresh Q-waves. Her echocardiogram, which was done yesterday shows a severe aortic ____ with an aortic valve peak gra dient of 56 mmHg, and a mean gradient of 32 mmHg with a calculated aortic valve area of 0.9 square cm . The left ventricular systolic function was preserved with a depressed diastolic compliance. The l eft atrium was moderately dilated. LABORATORY DATA: Noted. It showed a hemoglobin and hematocrit of 10.6 g and 32.8% respectively. He r WBC count was 7700, and the platelet count was 140,000. Her BUN and creatinine, which at admission were 12 and 0.7 mg percent were 14 and 0.6 mg percent. Her potassium was normal. There was mild de gree of hyponatremia. ProBNP was elevated at 3810 pg/mL. The CT of the chest was noted. There was no evidence of pulmonary emboli. There was some degree of pleural effusions. IMPRESSION: At this time is congestive cardiac failure, which is left ventricular end-diastolic and acute precipitated by atrial fibrillation in a patient with severe aortic ____, with recent urosepsis . The patient is responding to diuretics given early in the morning. In the meantime, there has not been a significant response to almost 10 mg of metoprolol given a couple of hours back. I have inst ructed the nurses to go ahead and give her 0.25 mg of digoxin and initiate Cardizem drip to immediate ly control her heart rate, and as IV digoxin takes effect, the Cardizem would be tapered off. She sh ows evidence of adequate peripheral perfusion, and I will follow the patient with you. Gildardo Benjamin MD cc: 23 TT: 11/07/2016 12:30:27 Confirmation # [id number] Dictation # [id number] [email or web address]
[2016-11-07 21:55] LABS: BLOOD UREA NITROGEN 19 mg/dl (7-17); CALCIUM 9.2 mg/dL (8.4-10.2); CARBON DIOXIDE 25 mmol/L (22-30); CHLORIDE 100 mmol/L (98-107); GFR AFRICAN-AMERICAN > 60; GLUCOSE,RANDOM 108 mg/dL (65-105); POTASSIUM 4.1 MMOL/L (3.6-5.0); SODIUM 137 mmol/l (132-148)
--- NOTE | 2016-11-08 08:03 | CP.PCM.PN ---
<Carissa Hollins - Last Filed: 11/08/16 14:13> Subjective - Date & Time of Evaluation Date of Evaluation: 11/08/16 Time of Evaluation: 07:30 - Subjective Subjective: Patient seen and examined bedside. Patient using O2 high flow. Breathing with less difficulty compared with yesterday. RR: 27 r/min. No overnight events. BMP last night normal. Tolerating diet. Objective - Vital Signs/Intake and Output Vital Signs (last 24 hours): Temp Pulse Resp BP Pulse Ox 98.3 F 88 15 127/72 98 11/08/16 05:16 11/08/16 05:16 11/08/16 05:16 11/08/16 05:16 11/08/16 05:16 - Medications Medications: Current Medications Acetaminophen (Tylenol 325mg Tab) 650 mg PO Q6 PRN PRN Reason: Fever >100.4 F Last Admin: 11/08/16 06:59 Dose: 650 mg Amlodipine Besylate (Norvasc) 10 mg PO DAILY [facility] Last Admin: 11/07/16 09:00 Dose: Not Given Clopidogrel Bisulfate (Plavix) 75 mg PO DAILY [facility] Last Admin: 11/07/16 10:55 Dose: 75 mg Enoxaparin Sodium (Lovenox) 40 mg SC DAILY BASHIR PRN Reason: Protocol Last Admin: 11/07/16 10:55 Dose: 40 mg Famotidine (Pepcid) 40 mg PO HS [facility] Last Admin: 11/07/16 21:26 Dose: 40 mg Meropenem 1 gm/ Sodium (Chloride) 100 mls @ 100 mls/hr IVPB Q12 [facility] Last Admin: 11/07/16 21:26 Dose: 100 mls/hr Amikacin Sulfate 250 mg/ (Sodium Chloride) 101 mls @ 100.609 mls/hr IVPB Q24H [facility] Stop: 11/09/16 17:01 Last Admin: 11/07/16 16:58 Dose: 100.609 mls/hr Diltiazem HCl 125 mg/ Sodium (Chloride) 125 mls @ 5 mls/hr IV .Q24H ONE; 5 MG/ HR PRN Reason: Protocol Stop: 11/08/16 08:57 Last Admin: 11/07/16 10:14 Dose: 5 mls/hr Losartan Potassium (Cozaar) 100 mg PO DAILY [facility] Last Admin: 11/07/16 09:00 Dose: Not Given Metoprolol Succinate (Toprol Xl) 50 mg PO DAILY [facility] Last Admin: 11/07/16 09:00 Dose: Not Given Ondansetron HCl (Zofran Inj) 4 mg IVP Q6 PRN PRN Reason: Nausea/Vomiting - Labs Labs: 11/06/16 05:55 11/07/16 21:00 PT 11.4 SECONDS (9.6-11.2) H 11/03/16 20:11 INR 1.10 (0.92-1.08) H 11/03/16 20:11 APTT 32.5 SECONDS (23.3-32.5) 11/03/16 20:11 - Constitutional Appears: Non-toxic, No Acute Distress - Head Exam Head Exam: ATRAUMATIC, NORMOCEPHALIC - Eye Exam Eye Exam: Normal appearance - Respiratory Exam Respiratory Exam: Rales. absent: Rhonchi, Wheezes Additional comments: B/L lung bases rales - Cardiovascular Exam Cardiovascular Exam: Irregular Rhythm, +S1, +S2, Murmur Additional comments: systolic murmur 3/6 - GI/Abdominal Exam GI & Abdominal Exam: Soft, Normal Bowel Sounds. absent: Guarding, Tenderness - Extremities Exam Extremities Exam: Normal Inspection. absent: Calf Tenderness - Neurological Exam Neurological Exam: Alert, Awake, Oriented x3 - Skin Skin Exam: Intact Assessment and Plan - Assessment and Plan (Free Text) Plan: 81 yo , f, admitted for acute pylonephritis and Sepsis. During hospitalization Acute CHF 1)Acute Pyleonephritis - UA positive - UCx echericha coli -meropenem 1g BID 4th day today -amikacin 3rd day - ID consult Manocchio appreciated: c/w meropenen and amikacin - F/U CBC, CMP 2) Sepsis with bacteremia -resolved - SIRS Criteria (Temp 100.4 + HR>90 + WBC12) and Source of infection- UTI on admission -Blood culture: echericha coli. 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 EF 55% -Echo 11/06/15 Sev aortic stenosis. EF: 55-60 % -ProbNP 3010 -Cardio consult appreciated: digoxin, xarelto -Pulmonology consult appreciated. no PE -CXR Right middle lobe atelectasis or infiltrate. 5 mm nodular density projects over the medial right clavicle -Angiotensin conver normal -quantiferon gold pending 4) Atrial Fibrillation with RVR -controlled -EKG showed Atrial fib with RVR HR: 70 b/m - c/w digoxin -Cardiology consult appreciated: c/w digoxin, Xarelto 5)Hx of Stroke- 13 years ago monitor - Plavix d/c 6)HTN - Continue Metoprolol Succinate 50mg po daily - Continue Amlodipine 10mg po daily - Continue Losartan 100mg po daily 7)Hx of Rt. Hip Fx - Physical therapy evaluated. Recommends TCU - Fall precautions in place 8)DVT prophylaxis - Lovenox 40mg sc <Sammy Serrano - Last Filed: 11/11/16 06:41> Objective - Vital Signs/Intake and Output Vital Signs (last 24 hours): Temp Pulse Resp BP Pulse Ox 97.6 F 97 H 18 157/88 H 97 11/11/16 05:28 11/11/16 05:28 11/11/16 05:28 11/11/16 05:28 11/11/16 05:28 Intake and Output: 11/10/16 11/11/16 18:59 06:59 Intake Total 100 Balance 100 - Medications Medications: Current Medications Acetaminophen (Tylenol 325mg Tab) 650 mg PO Q6 PRN PRN Reason: Fever >100.4 F Last Admin: 11/08/16 06:59 Dose: 650 mg Acetaminophen (Tylenol 325mg Tab) 650 mg PO Q6 PRN PRN Reason: Pain, Mild (1-3) Last Admin: 11/09/16 10:05 Dose: 650 mg Amlodipine Besylate (Norvasc) 10 mg PO DAILY [facility] Last Admin: 11/07/16 09:00 Dose: Not Given Digoxin (Lanoxin) 0.25 mg PO DAILY [facility] Last Admin: 11/10/16 10:00 Dose: 0.25 mg Famotidine (Pepcid) 40 mg PO HS [facility] Last Admin: 11/10/16 21:12 Dose: 40 mg Furosemide (Lasix) 20 mg PO DAILY [facility] Last Admin: 11/10/16 09:49 Dose: 20 mg Meropenem 1 gm/ Sodium (Chloride) 100 mls @ 100 mls/hr IVPB Q12 [facility] Last Admin: 11/10/16 21:08 Dose: 100 mls/hr Losartan Potassium (Cozaar) 100 mg PO DAILY [facility] Last Admin: 11/07/16 09:00 Dose: Not Given Metoprolol Tartrate (Lopressor) 25 mg PO Q12 [facility] Last Admin: 11/10/16 21:08 Dose: 25 mg Ondansetron HCl (Zofran Inj) 4 mg IVP Q6 PRN PRN Reason: Nausea/Vomiting Rivaroxaban (Xarelto) 15 mg PO QD5 [facility] PRN Reason: Protocol Last Admin: 11/10/16 17:36 Dose: 15 mg - Labs Labs: 11/10/16 06:50 11/10/16 06:50 PT 11.4 SECONDS (9.6-11.2) H 11/03/16 20:11 INR 1.10 (0.92-1.08) H 11/03/16 20:11 APTT 32.5 SECONDS (23.3-32.5) 11/03/16 20:11 Attending/Attestation - Attestation I have personally seen and examined this patient.: Yes I have fully participated in the care of the patient.: Yes I have reviewed all pertinent clinical information, including history, physical exam and plan: Yes
--- NOTE | 2016-11-08 08:09 | CARD ---
APPROVED REPORT EKG Measurement Heart [id number] <Conclusion> Atrial fibrillation with rapid ventricular response Abnormal ECG
[2016-11-08] MEDS: Metoprolol Succinate 50 mg XL Tab PO SCH (09:00)
[2016-11-08] MEDS: Enoxaparin 40 mg Syringe SC SCH (09:12)
[2016-11-08] MEDS: Meropenem 1 GM in Sodium Chloride 0.9% 100 ML IVPB SCH ×2 (09:13→21:53)
[2016-11-08] MEDS ORDERED: Digoxin 500 mcg/2ml (0.5 mg/2ml) Inj ONE (11:59)
[2016-11-08] MEDS ORDERED: Digoxin 500 mcg/2ml (0.5 mg/2ml) Inj IVP ONE ×2 (12:10→23:30)
--- NOTE | 2016-11-08 12:16 | CP.PCM.PN ---
Subjective - Date & Time of Evaluation Date of Evaluation: 11/08/16 Time of Evaluation: 11:50 - Subjective Subjective: Sitting OOB, a lot less dyspnoic A Fib at 90-100 BPM BP 100/70 mm HG Resp rate 18 BPM Pulse ox 97 % murmur+, no gallop Few basal rales (Insp effort poor) Will give addl IV Digoxin to slow down HR Xarelto started Labs tomorrow to evaluate BUN/ Creatinine and electrolytes Objective - Vital Signs/Intake and Output Vital Signs (last 24 hours): Temp Pulse Resp BP Pulse Ox 98.3 F 70 22 97/61 L 97 11/08/16 08:10 11/08/16 08:10 11/08/16 12:00 11/08/16 08:10 11/08/16 08:10 - Medications Medications: Current Medications Acetaminophen (Tylenol 325mg Tab) 650 mg PO Q6 PRN PRN Reason: Fever >100.4 F Last Admin: 11/08/16 06:59 Dose: 650 mg Amlodipine Besylate (Norvasc) 10 mg PO DAILY [facility] Last Admin: 11/07/16 09:00 Dose: Not Given Digoxin (Lanoxin) 0.25 mg IVP ONCE ONE Stop: 11/08/16 12:11 Last Admin: 11/08/16 12:07 Dose: 0.25 mg Digoxin (Lanoxin) 0.25 mg PO DAILY [facility] Famotidine (Pepcid) 40 mg PO HS [facility] Last Admin: 11/07/16 21:26 Dose: 40 mg Meropenem 1 gm/ Sodium (Chloride) 100 mls @ 100 mls/hr IVPB Q12 [facility] Last Admin: 11/08/16 09:13 Dose: 100 mls/hr Amikacin Sulfate 250 mg/ (Sodium Chloride) 101 mls @ 100.609 mls/hr IVPB Q24H [facility] Stop: 11/09/16 17:01 Last Admin: 11/07/16 16:58 Dose: 100.609 mls/hr Losartan Potassium (Cozaar) 100 mg PO DAILY [facility] Last Admin: 11/07/16 09:00 Dose: Not Given Ondansetron HCl (Zofran Inj) 4 mg IVP Q6 PRN PRN Reason: Nausea/Vomiting Rivaroxaban (Xarelto) 20 mg PO QD5 [facility] PRN Reason: Protocol - Labs Labs: 11/06/16 05:55 11/07/16 21:00 PT 11.4 SECONDS (9.6-11.2) H 11/03/16 20:11 INR 1.10 (0.92-1.08) H 11/03/16 20:11 APTT 32.5 SECONDS (23.3-32.5) 11/03/16 20:11
[2016-11-09 07:22] LABS: ALB/GLOB RATIO 0.8 (1.0-2.1); ALKALINE PHOSPHATASE 93 U/L (38-126); ALT/SGPT 28 U/L (9-52); AST/SGOT 31 U/L (14-36); BILIRUBIN,TOTAL 0.2 mg/dl (0.2-1.3); BLOOD UREA NITROGEN 23 mg/dl (7-17); CARBON DIOXIDE 28 mmol/L (22-30); CHLORIDE 103 mmol/L (98-107); GFR AFRICAN-AMERICAN > 60; GLUCOSE,RANDOM 94 mg/dL (65-105); POTASSIUM 4.1 MMOL/L (3.6-5.0); SODIUM 142 mmol/l (132-148)
--- NOTE | 2016-11-09 08:11 | CP.PCM.PN ---
<Carissa Hollins - Last Filed: 11/09/16 12:52> Subjective - Date & Time of Evaluation Date of Evaluation: 11/09/16 Time of Evaluation: 07:50 - Subjective Subjective: Patient seen and examined bedside feeling better. Reports B/L knee pain and wrist pain and mild SOB. Breathing with less difficulty than yesterday, using O2 NC. RR: 24 res/min. Denies chest pain, Abd pain, N/V/D. Objective - Vital Signs/Intake and Output Vital Signs (last 24 hours): Temp Pulse Resp BP Pulse Ox 98.1 F 87 18 120/61 97 11/09/16 08:04 11/09/16 08:04 11/09/16 08:04 11/09/16 08:04 11/09/16 08:04 - Medications Medications: Current Medications Acetaminophen (Tylenol 325mg Tab) 650 mg PO Q6 PRN PRN Reason: Fever >100.4 F Last Admin: 11/08/16 06:59 Dose: 650 mg Acetaminophen (Tylenol 325mg Tab) 650 mg PO Q6 PRN PRN Reason: Pain, Mild (1-3) Last Admin: 11/09/16 00:23 Dose: 650 mg Amlodipine Besylate (Norvasc) 10 mg PO DAILY [facility] Last Admin: 11/07/16 09:00 Dose: Not Given Digoxin (Lanoxin) 0.25 mg PO DAILY [facility] Famotidine (Pepcid) 40 mg PO HS [facility] Last Admin: 11/08/16 21:57 Dose: 40 mg Meropenem 1 gm/ Sodium (Chloride) 100 mls @ 100 mls/hr IVPB Q12 [facility] Last Admin: 11/08/16 21:53 Dose: 100 mls/hr Amikacin Sulfate 250 mg/ (Sodium Chloride) 101 mls @ 100.609 mls/hr IVPB Q24H [facility] Stop: 11/09/16 17:01 Last Admin: 11/08/16 17:04 Dose: 100.609 mls/hr Losartan Potassium (Cozaar) 100 mg PO DAILY [facility] Last Admin: 11/07/16 09:00 Dose: Not Given Ondansetron HCl (Zofran Inj) 4 mg IVP Q6 PRN PRN Reason: Nausea/Vomiting Rivaroxaban (Xarelto) 15 mg PO QD5 [facility] PRN Reason: Protocol Last Admin: 11/08/16 17:05 Dose: 15 mg - Labs Labs: 11/06/16 05:55 11/09/16 06:00 PT 11.4 SECONDS (9.6-11.2) H 11/03/16 20:11 INR 1.10 (0.92-1.08) H 11/03/16 20:11 APTT 32.5 SECONDS (23.3-32.5) 11/03/16 20:11 - Constitutional Appears: Non-toxic, No Acute Distress - Head Exam Head Exam: ATRAUMATIC, NORMOCEPHALIC - Eye Exam Eye Exam: Normal appearance - Respiratory Exam Respiratory Exam: Rales. absent: Rhonchi, Wheezes Additional comments: scattered rales right lung base. - Cardiovascular Exam Cardiovascular Exam: Irregular Rhythm, +S1, +S2, Murmur Additional comments: 3/6 systolic murmur - GI/Abdominal Exam GI & Abdominal Exam: Soft, Normal Bowel Sounds. absent: Tenderness - Extremities Exam Extremities Exam: Normal Inspection. absent: Calf Tenderness, Pedal Edema - Neurological Exam Neurological Exam: Alert, Awake - Skin Skin Exam: Intact Additional comments: sacral region and gluteal region w/o pressure ulcers Assessment and Plan - Assessment and Plan (Free Text) Plan: 81 yo , f, admitted for acute pylonephritis and Sepsis. During hospitalization Acute CHF 1)Acute Pyleonephritis - UA positive - UCx echericha coli -meropenem 1g BID 5th day today -amikacin 4rd day - ID consult Manocchio appreciated: c/w meropenen and amikacin - F/U CBC, CMP 2) Sepsis with bacteremia -resolved - SIRS Criteria (Temp 100.4 + HR>90 + WBC12) and Source of infection- UTI on admission -Blood culture: echericha coli. - Repeated Blood negative - ID consult appreciated 3) Aute CHF diastolic - secondary to sev aort stenosis and Afib with RVR - Echo 08/2015 Mod aortic stenosis, aort regurg. EF 55% -Echo 11/06/15 Sev aortic stenosis. EF: 55-60 % -ProbNP 3010 -Cardio consult appreciated: digoxin, started xarelto -Pulmonology consult appreciated. no PE -CXR Right middle lobe atelectasis or infiltrate. 5 mm nodular density projects over the medial right clavicle -Angiotensin convert normal -quantiferon gold negative 4) Atrial Fibrillation with RVR -controlled -EKG showed Atrial fib with RVR HR: 87 b/m - c/w digoxin -Cardiology consult appreciated: c/w digoxin, Xarelto 5)Hx of Stroke- 13 years ago monitor - Plavix d/c 6)HTN - Continue Metoprolol Succinate 50mg po daily - Continue Amlodipine 10mg po daily - Continue Losartan 100mg po daily 7)Hx of Rt. Hip Fx - Physical therapy evaluated. Recommends TCU - Fall precautions in place 8)DVT prophylaxis - Lovenox 40mg sc <Tylor Dais - Last Filed: 11/12/16 07:10> Objective - Vital Signs/Intake and Output Vital Signs (last 24 hours): Temp Pulse Resp BP Pulse Ox 98.1 F 82 18 128/61 96 11/11/16 13:00 11/11/16 13:00 11/11/16 13:00 11/11/16 13:00 11/11/16 13:00 - Labs Labs: 11/10/16 06:50 11/10/16 06:50 PT 11.4 SECONDS (9.6-11.2) H 11/03/16 20:11 INR 1.10 (0.92-1.08) H 11/03/16 20:11 APTT 32.5 SECONDS (23.3-32.5) 11/03/16 20:11 Attending/Attestation - Attestation I have personally seen and examined this patient.: Yes I have fully participated in the care of the patient.: Yes I have reviewed all pertinent clinical information, including history, physical exam and plan: Yes
[2016-11-09] MEDS: Meropenem 1 GM in Sodium Chloride 0.9% 100 ML IVPB SCH ×2 (09:00→22:01)
[2016-11-09] MEDS: Digoxin 250 mcg (0.25 mg) Tab PO SCH (09:55)
--- NOTE | 2016-11-09 11:44 | CP.PCM.PN ---
Subjective - Date & Time of Evaluation Date of Evaluation: 11/09/16 Time of Evaluation: 11:40 - Subjective Subjective: Interim events reviewed. Seated in bedside chair, feels much improved. Denies SOB at rest or cough. Ambulated to the bathroom today. Vital signs have been stable, on O2 via nasal canula. No dullness on chest percussion. Breath sounds are diminished but present bilaterally. No audible wheezes or bronchial breath sounds. Dry rales are present in the bases posteriorly, R>L. Neck is supple and trachea midline. No dependant edema. Followup CXR requested. No further pulmonary interventions needed. Objective - Vital Signs/Intake and Output Vital Signs (last 24 hours): Temp Pulse Resp BP Pulse Ox 98.1 F 87 18 120/61 97 11/09/16 08:04 11/09/16 08:04 11/09/16 08:04 11/09/16 08:04 11/09/16 08:04 - Medications Medications: Current Medications Acetaminophen (Tylenol 325mg Tab) 650 mg PO Q6 PRN PRN Reason: Fever >100.4 F Last Admin: 11/08/16 06:59 Dose: 650 mg Acetaminophen (Tylenol 325mg Tab) 650 mg PO Q6 PRN PRN Reason: Pain, Mild (1-3) Last Admin: 11/09/16 10:05 Dose: 650 mg Amlodipine Besylate (Norvasc) 10 mg PO DAILY [facility] Last Admin: 11/07/16 09:00 Dose: Not Given Digoxin (Lanoxin) 0.25 mg PO DAILY [facility] Last Admin: 11/09/16 09:55 Dose: 0.25 mg Famotidine (Pepcid) 40 mg PO HS [facility] Last Admin: 11/08/16 21:57 Dose: 40 mg Meropenem 1 gm/ Sodium (Chloride) 100 mls @ 100 mls/hr IVPB Q12 [facility] Last Admin: 11/09/16 09:00 Dose: 100 mls/hr Amikacin Sulfate 250 mg/ (Sodium Chloride) 101 mls @ 100.609 mls/hr IVPB Q24H [facility] Stop: 11/09/16 17:01 Last Admin: 11/08/16 17:04 Dose: 100.609 mls/hr Losartan Potassium (Cozaar) 100 mg PO DAILY [facility] Last Admin: 11/07/16 09:00 Dose: Not Given Ondansetron HCl (Zofran Inj) 4 mg IVP Q6 PRN PRN Reason: Nausea/Vomiting Rivaroxaban (Xarelto) 15 mg PO QD5 [facility] PRN Reason: Protocol Last Admin: 11/08/16 17:05 Dose: 15 mg - Labs Labs: 11/06/16 05:55 11/09/16 06:00 PT 11.4 SECONDS (9.6-11.2) H 11/03/16 20:11 INR 1.10 (0.92-1.08) H 11/03/16 20:11 APTT 32.5 SECONDS (23.3-32.5) 11/03/16 20:11 Assessment and Plan (1) Pleural effusion Status: Acute (2) Atelectasis Status: Acute (3) Hilar lymphadenopathy Status: Chronic
--- NOTE | 2016-11-09 12:59 | CP.PCM.PN ---
Subjective - Date & Time of Evaluation Date of Evaluation: 11/09/16 Time of Evaluation: 12:40 - Subjective Subjective: Laying virtually flat in bed Sat OOB this AM HR controlled, though during the night she had HR >120 BPM BP 116/70 mm Hg JVP flat, no rales Today's labs show stable BUN/Creatinine and stable electrolytes Will add metoprolol for HR control Consider transfer off of telemetry Objective - Vital Signs/Intake and Output Vital Signs (last 24 hours): Temp Pulse Resp BP Pulse Ox 97.9 F 95 H 18 116/86 98 11/09/16 12:26 11/09/16 12:26 11/09/16 12:26 11/09/16 12:26 11/09/16 12:26 - Medications Medications: Current Medications Acetaminophen (Tylenol 325mg Tab) 650 mg PO Q6 PRN PRN Reason: Fever >100.4 F Last Admin: 11/08/16 06:59 Dose: 650 mg Acetaminophen (Tylenol 325mg Tab) 650 mg PO Q6 PRN PRN Reason: Pain, Mild (1-3) Last Admin: 11/09/16 10:05 Dose: 650 mg Amlodipine Besylate (Norvasc) 10 mg PO DAILY [facility] Last Admin: 11/07/16 09:00 Dose: Not Given Digoxin (Lanoxin) 0.25 mg PO DAILY [facility] Last Admin: 11/09/16 09:55 Dose: 0.25 mg Famotidine (Pepcid) 40 mg PO HS [facility] Last Admin: 11/08/16 21:57 Dose: 40 mg Meropenem 1 gm/ Sodium (Chloride) 100 mls @ 100 mls/hr IVPB Q12 [facility] Last Admin: 11/09/16 09:00 Dose: 100 mls/hr Amikacin Sulfate 250 mg/ (Sodium Chloride) 101 mls @ 100.609 mls/hr IVPB Q24H [facility] Stop: 11/09/16 17:01 Last Admin: 11/08/16 17:04 Dose: 100.609 mls/hr Losartan Potassium (Cozaar) 100 mg PO DAILY [facility] Last Admin: 11/07/16 09:00 Dose: Not Given Metoprolol Tartrate (Lopressor) 25 mg PO Q12 [facility] Ondansetron HCl (Zofran Inj) 4 mg IVP Q6 PRN PRN Reason: Nausea/Vomiting Rivaroxaban (Xarelto) 15 mg PO QD5 [facility] PRN Reason: Protocol Last Admin: 11/08/16 17:05 Dose: 15 mg - Labs Labs: 11/06/16 05:55 11/09/16 06:00 PT 11.4 SECONDS (9.6-11.2) H 11/03/16 20:11 INR 1.10 (0.92-1.08) H 11/03/16 20:11 APTT 32.5 SECONDS (23.3-32.5) 11/03/16 20:11
--- NOTE | 2016-11-09 13:15 | RAD ---
HISTORY: cough COMPARISON: 11/05/2016 TECHNIQUE: Chest PA and lateral FINDINGS: LUNGS: Mild bilateral interstitial changes. PLEURA: No significant pleural effusion identified. No pneumothorax apparent. CARDIOVASCULAR: Normal. OSSEOUS STRUCTURES: No significant abnormalities. VISUALIZED UPPER ABDOMEN: Normal. OTHER FINDINGS: None. IMPRESSION: Mild bilateral nonspecific interstitial changes, right greater than left.
[2016-11-09] MEDS ORDERED: Digoxin 500 mcg/2ml (0.5 mg/2ml) Inj IVP ONE (23:15)
--- NOTE | 2016-11-10 08:46 | CP.PCM.PN ---
Subjective - Date & Time of Evaluation Date of Evaluation: 11/10/16 Time of Evaluation: 08:30 - Subjective Subjective: Breathes a lot more comfortably Able to lay virtually flat in bed Eating her breakfast in bed Telemetry shows A Fib at 90 BPM / BP 150/70 mm Hg No rales no gallop murmur+ May go off telemetry and be considered for TCU Objective - Vital Signs/Intake and Output Vital Signs (last 24 hours): Temp Pulse Resp BP Pulse Ox 98.2 F 89 18 134/84 97 11/10/16 08:27 11/10/16 08:27 11/10/16 08:27 11/10/16 08:27 11/10/16 08:27 Intake and Output: 11/10/16 11/10/16 06:59 18:59 Intake Total 100 Balance 100 - Medications Medications: Current Medications Acetaminophen (Tylenol 325mg Tab) 650 mg PO Q6 PRN PRN Reason: Fever >100.4 F Last Admin: 11/08/16 06:59 Dose: 650 mg Acetaminophen (Tylenol 325mg Tab) 650 mg PO Q6 PRN PRN Reason: Pain, Mild (1-3) Last Admin: 11/09/16 10:05 Dose: 650 mg Amlodipine Besylate (Norvasc) 10 mg PO DAILY [facility] Last Admin: 11/07/16 09:00 Dose: Not Given Digoxin (Lanoxin) 0.25 mg PO DAILY [facility] Last Admin: 11/09/16 09:55 Dose: 0.25 mg Famotidine (Pepcid) 40 mg PO HS [facility] Last Admin: 11/09/16 22:49 Dose: 40 mg Meropenem 1 gm/ Sodium (Chloride) 100 mls @ 100 mls/hr IVPB Q12 [facility] Last Admin: 11/09/16 22:01 Dose: 100 mls/hr Losartan Potassium (Cozaar) 100 mg PO DAILY [facility] Last Admin: 11/07/16 09:00 Dose: Not Given Metoprolol Tartrate (Lopressor) 25 mg PO Q12 [facility] Last Admin: 11/09/16 22:00 Dose: 25 mg Ondansetron HCl (Zofran Inj) 4 mg IVP Q6 PRN PRN Reason: Nausea/Vomiting Rivaroxaban (Xarelto) 15 mg PO QD5 [facility] PRN Reason: Protocol Last Admin: 11/09/16 21:57 Dose: 15 mg - Labs Labs: 11/06/16 05:55 11/09/16 06:00 PT 11.4 SECONDS (9.6-11.2) H 11/03/16 20:11 INR 1.10 (0.92-1.08) H 11/03/16 20:11 APTT 32.5 SECONDS (23.3-32.5) 11/03/16 20:11
[2016-11-10 09:08] LABS: BLOOD UREA NITROGEN 18 mg/dl (7-17); CALCIUM 9.4 mg/dL (8.4-10.2); CARBON DIOXIDE 27 mmol/L (22-30); CHLORIDE 103 mmol/L (98-107); GFR AFRICAN-AMERICAN > 60; GLUCOSE,RANDOM 87 mg/dL (65-105); POTASSIUM 4.3 MMOL/L (3.6-5.0); SODIUM 141 mmol/l (132-148)
--- NOTE | 2016-11-10 09:44 | CP.PCM.PN ---
Subjective - Date & Time of Evaluation Date of Evaluation: 11/10/16 Time of Evaluation: 09:15 - Subjective Subjective: No overnight events. Increasing level of energy. Tolerating PO intake. Denies shortness of breath, chest pain, palpitations. No cough, sputum production, pleurisy. Participating in PT. Afebrile. Denies dysuria, hematuria. No back pain. Objective - Vital Signs/Intake and Output Vital Signs (last 24 hours): Temp Pulse Resp BP Pulse Ox 98.2 F 89 18 134/84 97 11/10/16 08:27 11/10/16 08:27 11/10/16 08:27 11/10/16 08:27 11/10/16 08:27 Intake and Output: 11/10/16 11/10/16 06:59 18:59 Intake Total 100 Balance 100 - Medications Medications: Current Medications Acetaminophen (Tylenol 325mg Tab) 650 mg PO Q6 PRN PRN Reason: Fever >100.4 F Last Admin: 11/08/16 06:59 Dose: 650 mg Acetaminophen (Tylenol 325mg Tab) 650 mg PO Q6 PRN PRN Reason: Pain, Mild (1-3) Last Admin: 11/09/16 10:05 Dose: 650 mg Amlodipine Besylate (Norvasc) 10 mg PO DAILY [facility] Last Admin: 11/07/16 09:00 Dose: Not Given Digoxin (Lanoxin) 0.25 mg PO DAILY [facility] Last Admin: 11/09/16 09:55 Dose: 0.25 mg Famotidine (Pepcid) 40 mg PO HS [facility] Last Admin: 11/09/16 22:49 Dose: 40 mg Furosemide (Lasix) 20 mg PO DAILY [facility] Meropenem 1 gm/ Sodium (Chloride) 100 mls @ 100 mls/hr IVPB Q12 [facility] Last Admin: 11/09/16 22:01 Dose: 100 mls/hr Losartan Potassium (Cozaar) 100 mg PO DAILY [facility] Last Admin: 11/07/16 09:00 Dose: Not Given Metoprolol Tartrate (Lopressor) 25 mg PO Q12 [facility] Last Admin: 11/09/16 22:00 Dose: 25 mg Ondansetron HCl (Zofran Inj) 4 mg IVP Q6 PRN PRN Reason: Nausea/Vomiting Rivaroxaban (Xarelto) 15 mg PO QD5 [facility] PRN Reason: Protocol Last Admin: 11/09/16 21:57 Dose: 15 mg - Labs Labs: 11/06/16 05:55 11/10/16 06:50 PT 11.4 SECONDS (9.6-11.2) H 11/03/16 20:11 INR 1.10 (0.92-1.08) H 11/03/16 20:11 APTT 32.5 SECONDS (23.3-32.5) 11/03/16 20:11 - Head Exam Head Exam: ATRAUMATIC, NORMOCEPHALIC - Eye Exam Eye Exam: EOMI, Normal appearance - Neck Exam Neck Exam: Full ROM - Respiratory Exam Respiratory Exam: Rales (R>L bibasillar), Rhonchi, NORMAL BREATHING PATTERN. absent: Wheezes, Respiratory Distress - Cardiovascular Exam Cardiovascular Exam: Irregular Rhythm. absent: Tachycardia - GI/Abdominal Exam GI & Abdominal Exam: Soft. absent: Distended, Tenderness - Extremities Exam Extremities Exam: absent: Pedal Edema - Neurological Exam Neurological Exam: Alert, Normal Gait, Oriented x3 Assessment and Plan - Assessment and Plan (Free Text) Plan: 1. Atrial Fibrillation with RVR Controlled Potentiating CHF Cardiology consult, Dr. Benjamin, appreciated Digoxin, Xarelto Consider TCU 2. Acute CHF diastolic Echo 11/05/16 Severe aortic stenosis. EF: 55-60 % Pulmonology consult, Dr. Bazan appreciated. Unlikely PE 11/09/16 CXR: R>L nonspecific interstitial changes Will add Lasix 20mg PO daily Daily weights I&Os Angiotensin convert normal Quantiferon gold negative 3. UTI with Bacteremia, E. Coli Resolved Status post Jesika and Amikacin Dr. Moser, ID on board, consult appreciated 4. HTN, controlled Continue Metoprolol Succinate 50mg po daily Continue Amlodipine 10mg po daily Continue Losartan 100mg po daily 5. DVT prophylaxis Xarelto 15mg PO BID
[2016-11-10] MEDS: Meropenem 1 GM in Sodium Chloride 0.9% 100 ML IVPB SCH ×2 (09:45→21:08)
[2016-11-10 09:59] LABS: MEAN CELL VOLUME 86.3 fl (81.0-99.0); MEAN CORPUSCULAR HEMOGLOBIN 26.9 pg (27.0-31.0); MEAN CORPUSCULAR HGB CONC 31.1 g/dL (33.0-37.0); RED CELL DISTRIBUTION WIDTH 14.9 % (11.5-14.5)
[2016-11-10] MEDS: Digoxin 250 mcg (0.25 mg) Tab PO SCH (10:00)
[2016-11-11 01:00] VITALS: RESP 18
--- NOTE | 2016-11-11 09:26 | CP.PCM.PN ---
Subjective - Date & Time of Evaluation Date of Evaluation: 11/11/16 Time of Evaluation: 09:20 - Subjective Subjective: Resting comfortably, slept well A Fib at 90-100 BPM BP 136/70 mm Hg JVP flat, no rales AO ejection syst murmur of + Labs show GFR >60 Ml/min Will correct the dose of Xarelto to 20 mg per day Pt should go to TCU Will discuss with the son implication of CHF in presence of severe Objective - Vital Signs/Intake and Output Vital Signs (last 24 hours): Temp Pulse Resp BP Pulse Ox 97.6 F 97 H 18 157/88 H 97 11/11/16 05:28 11/11/16 05:28 11/11/16 05:28 11/11/16 05:28 11/11/16 05:28 - Medications Medications: Current Medications Acetaminophen (Tylenol 325mg Tab) 650 mg PO Q6 PRN PRN Reason: Fever >100.4 F Last Admin: 11/08/16 06:59 Dose: 650 mg Acetaminophen (Tylenol 325mg Tab) 650 mg PO Q6 PRN PRN Reason: Pain, Mild (1-3) Last Admin: 11/09/16 10:05 Dose: 650 mg Amlodipine Besylate (Norvasc) 10 mg PO DAILY [facility] Last Admin: 11/07/16 09:00 Dose: Not Given Digoxin (Lanoxin) 0.25 mg PO DAILY [facility] Last Admin: 11/10/16 10:00 Dose: 0.25 mg Famotidine (Pepcid) 40 mg PO HS [facility] Last Admin: 11/10/16 21:12 Dose: 40 mg Furosemide (Lasix) 20 mg PO DAILY [facility] Last Admin: 11/10/16 09:49 Dose: 20 mg Meropenem 1 gm/ Sodium (Chloride) 100 mls @ 100 mls/hr IVPB Q12 [facility] Last Admin: 11/10/16 21:08 Dose: 100 mls/hr Losartan Potassium (Cozaar) 100 mg PO DAILY [facility] Last Admin: 11/07/16 09:00 Dose: Not Given Metoprolol Tartrate (Lopressor) 25 mg PO Q12 [facility] Last Admin: 11/10/16 21:08 Dose: 25 mg Ondansetron HCl (Zofran Inj) 4 mg IVP Q6 PRN PRN Reason: Nausea/Vomiting Rivaroxaban (Xarelto) 15 mg PO QD5 [facility] PRN Reason: Protocol Last Admin: 11/10/16 17:36 Dose: 15 mg - Labs Labs: 11/10/16 06:50 11/10/16 06:50 PT 11.4 SECONDS (9.6-11.2) H 11/03/16 20:11 INR 1.10 (0.92-1.08) H 11/03/16 20:11 APTT 32.5 SECONDS (23.3-32.5) 11/03/16 20:11
[2016-11-11] MEDS: Meropenem 1 GM in Sodium Chloride 0.9% 100 ML IVPB SCH (09:34)
[2016-11-11] MEDS: Digoxin 250 mcg (0.25 mg) Tab PO SCH (09:34)
--- NOTE | 2016-11-11 09:34 | CP.PCM.PN ---
<Carissa Hollins - Last Filed: 11/11/16 16:01> Subjective - Date & Time of Evaluation Date of Evaluation: 11/11/16 Time of Evaluation: 07:45 - Subjective Subjective: Patient seen and examined bedside feeling better. Using O2 NC. Denies chest pain, SOB, N/V/D. Aware and wants to go to TCU Objective - Vital Signs/Intake and Output Vital Signs (last 24 hours): Temp Pulse Resp BP Pulse Ox 97.6 F 97 H 18 157/88 H 97 11/11/16 05:28 11/11/16 05:28 11/11/16 05:28 11/11/16 05:28 11/11/16 05:28 - Medications Medications: Current Medications Acetaminophen (Tylenol 325mg Tab) 650 mg PO Q6 PRN PRN Reason: Fever >100.4 F Last Admin: 11/08/16 06:59 Dose: 650 mg Acetaminophen (Tylenol 325mg Tab) 650 mg PO Q6 PRN PRN Reason: Pain, Mild (1-3) Last Admin: 11/09/16 10:05 Dose: 650 mg Amlodipine Besylate (Norvasc) 10 mg PO DAILY [facility] Last Admin: 11/07/16 09:00 Dose: Not Given Digoxin (Lanoxin) 0.25 mg PO DAILY [facility] Last Admin: 11/10/16 10:00 Dose: 0.25 mg Famotidine (Pepcid) 40 mg PO HS [facility] Last Admin: 11/10/16 21:12 Dose: 40 mg Furosemide (Lasix) 20 mg PO DAILY [facility] Last Admin: 11/10/16 09:49 Dose: 20 mg Meropenem 1 gm/ Sodium (Chloride) 100 mls @ 100 mls/hr IVPB Q12 [facility] Last Admin: 11/10/16 21:08 Dose: 100 mls/hr Losartan Potassium (Cozaar) 100 mg PO DAILY [facility] Last Admin: 11/07/16 09:00 Dose: Not Given Metoprolol Tartrate (Lopressor) 25 mg PO Q12 [facility] Last Admin: 11/10/16 21:08 Dose: 25 mg Ondansetron HCl (Zofran Inj) 4 mg IVP Q6 PRN PRN Reason: Nausea/Vomiting Rivaroxaban (Xarelto) 15 mg PO QD5 [facility] PRN Reason: Protocol Last Admin: 11/10/16 17:36 Dose: 15 mg - Labs Labs: 11/10/16 06:50 11/10/16 06:50 PT 11.4 SECONDS (9.6-11.2) H 11/03/16 20:11 INR 1.10 (0.92-1.08) H 11/03/16 20:11 APTT 32.5 SECONDS (23.3-32.5) 11/03/16 20:11 - Constitutional Appears: Non-toxic, No Acute Distress - Respiratory Exam Respiratory Exam: Clear to Ausculation Bilateral. absent: Rales, Rhonchi, Wheezes - Cardiovascular Exam Cardiovascular Exam: Irregular Rhythm, Murmur Additional comments: 3/6 systolic murmur - GI/Abdominal Exam GI & Abdominal Exam: Soft, Normal Bowel Sounds. absent: Tenderness - Extremities Exam Extremities Exam: Normal Inspection. absent: Calf Tenderness, Pedal Edema - Neurological Exam Neurological Exam: Alert, Awake - Skin Skin Exam: Intact Assessment and Plan - Assessment and Plan (Free Text) Plan: 81 yo , f, admitted for acute pylonephritis and Sepsis. During hospitalization Acute CHF Assessment/Plan 1. Atrial Fibrillation with RVR Controlled Potentiating CHF Cardiology consult, Dr. Benjamin, appreciated Digoxin, Xarelto D/C to TCU today 2. Acute CHF diastolic Echo 11/05/16 Severe aortic stenosis. EF: 55-60 % Pulmonology consult, Dr. Bazan appreciated. Unlikely PE 11/09/16 CXR: R>L nonspecific interstitial changes Will add Lasix 20mg PO daily Daily weights I&Os Angiotensin convert normal Quantiferon gold negative 3. UTI with Bacteremia, E. Coli Resolved Status post Jesika and Amikacin Dr. Moser, ID on board, consult appreciated 4. HTN, controlled Continue Metoprolol Succinate 50mg po daily Continue Amlodipine 10mg po daily Continue Losartan 100mg po daily 5. DVT prophylaxis Xarelto 20 mg PO daily <Sammy Serrano - Last Filed: 11/12/16 06:40> Objective - Vital Signs/Intake and Output Vital Signs (last 24 hours): Temp Pulse Resp BP Pulse Ox 98.1 F 82 18 128/61 96 11/11/16 13:00 11/11/16 13:00 11/11/16 13:00 11/11/16 13:00 11/11/16 13:00 - Labs Labs: 11/10/16 06:50 11/10/16 06:50 PT 11.4 SECONDS (9.6-11.2) H 11/03/16 20:11 INR 1.10 (0.92-1.08) H 11/03/16 20:11 APTT 32.5 SECONDS (23.3-32.5) 11/03/16 20:11 Attending/Attestation - Attestation I have personally seen and examined this patient.: Yes I have fully participated in the care of the patient.: Yes I have reviewed all pertinent clinical information, including history, physical exam and plan: Yes
[2016-11-11 09:36] VITALS: PULSE 84
--- NOTE | 2016-11-11 09:49 | CP.PCM.PN ---
Subjective - Date & Time of Evaluation Date of Evaluation: 11/11/16 Time of Evaluation: 09:47 - Subjective Subjective: The patient has improved and is stable from a pulmonary standpoint. She is appropriate for discharge to [facility]. Thank you Objective - Vital Signs/Intake and Output Vital Signs (last 24 hours): Temp Pulse Resp BP Pulse Ox 97.6 F 84 18 144/73 97 11/11/16 05:28 11/11/16 09:35 11/11/16 05:28 11/11/16 09:35 11/11/16 05:28 - Medications Medications: Current Medications Acetaminophen (Tylenol 325mg Tab) 650 mg PO Q6 PRN PRN Reason: Fever >100.4 F Last Admin: 11/08/16 06:59 Dose: 650 mg Acetaminophen (Tylenol 325mg Tab) 650 mg PO Q6 PRN PRN Reason: Pain, Mild (1-3) Last Admin: 11/09/16 10:05 Dose: 650 mg Amlodipine Besylate (Norvasc) 10 mg PO DAILY [facility] Last Admin: 11/07/16 09:00 Dose: Not Given Digoxin (Lanoxin) 0.25 mg PO DAILY [facility] Last Admin: 11/11/16 09:34 Dose: 0.25 mg Famotidine (Pepcid) 40 mg PO HS [facility] Last Admin: 11/10/16 21:12 Dose: 40 mg Furosemide (Lasix) 20 mg PO DAILY [facility] Last Admin: 11/11/16 09:35 Dose: 20 mg Meropenem 1 gm/ Sodium (Chloride) 100 mls @ 100 mls/hr IVPB Q12 [facility] Last Admin: 11/11/16 09:34 Dose: 100 mls/hr Losartan Potassium (Cozaar) 100 mg PO DAILY [facility] Last Admin: 11/07/16 09:00 Dose: Not Given Metoprolol Tartrate (Lopressor) 25 mg PO Q12 [facility] Last Admin: 11/11/16 09:35 Dose: 25 mg Ondansetron HCl (Zofran Inj) 4 mg IVP Q6 PRN PRN Reason: Nausea/Vomiting Rivaroxaban (Xarelto) 15 mg PO QD5 [facility] PRN Reason: Protocol Last Admin: 11/10/16 17:36 Dose: 15 mg - Labs Labs: 11/10/16 06:50 11/10/16 06:50 PT 11.4 SECONDS (9.6-11.2) H 11/03/16 20:11 INR 1.10 (0.92-1.08) H 11/03/16 20:11 APTT 32.5 SECONDS (23.3-32.5) 11/03/16 20:11 Assessment and Plan (1) Pleural effusion Status: Acute (2) Atelectasis Status: Acute (3) Hilar lymphadenopathy Status: Chronic
[2016-11-11 13:27] VITALS: BP 128/61; PULSE 82; TEMP 98.1; O2SAT 96
--- NOTE | 2016-11-11 14:24 | CP.PCM.DIS ---
Provider - Provider Date of Admission: 11/03/16 20:44 Attending physician: Tylor Dias MD Time Spent in preparation of Discharge (in minutes): 30 Diagnosis - Discharge Diagnosis (1) Hypertension Status: Chronic (2) Pyelonephritis, acute Status: Resolved (3) CHF (congestive heart failure) Status: Resolved Comment: - acute CHF diastolic. -resolved (4) SIRS (systemic inflammatory response syndrome) Status: Resolved (5) Sepsis Status: Resolved Hospital Course - Lab Results Lab Results: Micro Results 11/10/16 06:15 Blood Blood Culture - Preliminary NO GROWTH AFTER 24 HOURS 11/06/16 05:55 Blood Blood Culture - Final NO GROWTH AFTER 5 DAYS 11/06/16 05:55 Blood Gram Stain - Final TEST NOT PERFORMED 11/05/16 16:00 Blood Blood Culture - Final NO GROWTH AFTER 5 DAYS 11/05/16 16:00 Blood Gram Stain - Final TEST NOT PERFORMED Most Recent Lab Values WBC 5.0 K/uL (4.8-10.8) 11/10/16 06:50 RBC 5.91 Mil/uL (3.80-5.20) H 11/10/16 06:50 Hgb 15.9 g/dL (12.0-16.0) D 11/10/16 06:50 Hct 51.0 % (34.0-47.0) H 11/10/16 06:50 MCV 86.3 fl (81.0-99.0) 11/10/16 06:50 MCH 26.9 pg (27.0-31.0) L 11/10/16 06:50 MCHC 31.1 g/dL (33.0-37.0) L 11/10/16 06:50 RDW 14.9 % (11.5-14.5) H 11/10/16 06:50 Plt Count 199 K/uL (130-400) 11/10/16 06:50 MPV 9.3 fl (7.2-11.7) 11/04/16 06:05 Neut % (Auto) 87.6 % (50.0-75.0) H 11/04/16 06:05 Lymph % (Auto) 6.1 % (20.0-40.0) L 11/04/16 06:05 [place] % (Auto) 5.9 % (0.0-10.0) 11/04/16 06:05 Eos % (Auto) 0.1 % (0.0-4.0) 11/04/16 06:05 Baso % (Auto) 0.3 % (0.0-2.0) 11/04/16 06:05 Neut # 11.6 K/uL (1.8-7.0) H 11/04/16 06:05 Lymph # 0.8 K/uL (1.0-4.3) L 11/04/16 06:05 [place] # 0.8 K/uL (0.0-0.8) 11/04/16 06:05 Eos # 0.0 K/uL (0.0-0.7) 11/04/16 06:05 Baso # 0.0 K/uL (0.0-0.2) 11/04/16 06:05 Neutrophils % (Manual) 85 % (42-75) H 11/03/16 20:11 Band Neutrophils % 2 % (0-2) 11/03/16 20:11 Lymphocytes % (Manual) 8 % (20-50) L 11/03/16 20:11 Monocytes % (Manual) 5 % (0-10) 11/03/16 20:11 Platelet Estimate Normal (NORMAL) 11/03/16 20:11 Large Platelets Present 11/03/16 20:11 Poikilocytosis (manual Slight 11/03/16 20:11 Anisocytosis (manual) Slight 11/03/16 20:11 Ovalocytes Slight 11/03/16 20:11 PT 11.4 SECONDS (9.6-11.2) H 11/03/16 20:11 INR 1.10 (0.92-1.08) H 11/03/16 20:11 APTT 32.5 SECONDS (23.3-32.5) 11/03/16 20:11 pCO2 32 mm/Hg (35-45) L 11/07/16 07:30 pO2 65 mm/Hg (80-100) L 11/07/16 07:30 HCO3 27.6 mmol/L (21-28) 11/07/16 07:30 ABG pH 7.52 (7.35-7.45) H 11/07/16 07:30 ABG Total CO2 27.1 mmol/L (22-28) 11/07/16 07:30 ABG O2 Saturation 96.9 % (95-98) 11/07/16 07:30 ABG O2 Content 14.3 ML/dL (15-23) L 11/07/16 07:30 ABG Base Excess 3.5 mmol/L (-2.0-3.0) H 11/07/16 07:30 ABG Hemoglobin 10.8 g/dL (11.7-17.4) L 11/07/16 07:30 ABG Carboxyhemoglobin 1.6 % (0.5-1.5) H 11/07/16 07:30 POC ABG HHb (Measured) 3.0 % (0.0-5.0) 11/07/16 07:30 ABG Methemoglobin 1.2 % (0.0-3.0) 11/07/16 07:30 ABG O2 Capacity 14.8 mL/dL (16-24) L 11/07/16 07:30 Boyd Test Yes 11/07/16 07:30 A-a O2 Difference 180.0 mm/Hg 11/07/16 07:30 Hgb O2 Saturation 94.2 % (95.0-98.0) L 11/07/16 07:30 FiO2 40.0 % 11/07/16 07:30 Sodium 141 mmol/l (132-148) 11/10/16 06:50 Potassium 4.3 MMOL/L (3.6-5.0) 11/10/16 06:50 Chloride 103 mmol/L (98-107) 11/10/16 06:50 Carbon Dioxide 27 mmol/L (22-30) 11/10/16 06:50 Anion Gap 15 (10-20) 11/10/16 06:50 BUN 18 mg/dl (7-17) H 11/10/16 06:50 Creatinine 0.6 mg/dL (0.7-1.2) L 11/10/16 06:50 Est GFR ( Amer) > 60 11/10/16 06:50 Est GFR (Non-Af Amer) > 60 11/10/16 06:50 POC Glucose (mg/dL) 98 mg/dL (65-110) 11/06/16 05:58 Random Glucose 87 mg/dL (65-105) 11/10/16 06:50 Serum Osmolality 285 mosm/kg (272-300) 11/07/16 21:00 Lactic Acid 1.1 MMOL/L (0.7-2.1) 11/03/16 20:11 Calcium 9.4 mg/dL (8.4-10.2) 11/10/16 06:50 Total Bilirubin 0.2 mg/dl (0.2-1.3) 11/09/16 06:00 AST 31 U/L (14-36) 11/09/16 06:00 ALT 28 U/L (9-52) 11/09/16 06:00 Alkaline Phosphatase 93 U/L (38-126) 11/09/16 06:00 Troponin I 0.0340 ng/mL (0.00-0.120) 11/07/16 16:30 NT-Pro-B Natriuret Pep 3810 pg/ml (0-900) H 11/06/16 11:42 Total Protein 6.0 G/DL (6.3-8.2) L 11/09/16 06:00 Albumin 2.7 g/dL (3.5-5.0) L 11/09/16 06:00 Globulin 3.3 gm/dL (2.2-3.9) 11/09/16 06:00 Albumin/Globulin Ratio 0.8 (1.0-2.1) L 11/09/16 06:00 Angiotensin Convert Enz 18 U/L (9-67) 11/06/16 11:42 Urine Color Yellow (YELLOW) 11/03/16 20:00 Urine Clarity Slighty-cloudy (Clear) 11/03/16 20:00 Urine pH 7.0 (5.0-8.0) 11/03/16 20:00 Ur Specific [place] 1.006 (1.003-1.030) 11/03/16 20:00 Urine Protein 30 mg/dL (NEGATIVE) 11/03/16 20:00 Urine Glucose (UA) Neg mg/dL (Normal) 11/03/16 20:00 Urine Ketones Negative mg/dL (NEGATIVE) 11/03/16 20:00 Urine Blood Moderate (NEGATIVE) 11/03/16 20:00 Urine Nitrate Negative (NEGATIVE) 11/03/16 20:00 Urine Bilirubin Negative (NEGATIVE) 11/03/16 20:00 Urine Urobilinogen 0.2-1.0 mg/dL (0.2-1.0) 11/03/16 20:00 Ur Leukocyte Esterase Large Estella/uL (Negative) 11/03/16 20:00 Urine RBC (Auto) 5 /hpf (0-3) H 11/03/16 20:00 Urine Microscopic WBC 162 /hpf (0-5) H 11/03/16 20:00 Ur Squamous Epith Cells < 1 /hpf (0-5) 11/03/16 20:00 Urine Bacteria Occ (<OCC) H 11/03/16 20:00 TB Test (QFT) Nil 0.19 IU/mL (()) 11/06/16 11:42 TB Test Mitogen - Nil 0.51 IU/mL (()) 11/06/16 11:42 TB Test TB - Nil 0.05 IU/mL (()) 11/06/16 11:42 TB Test (QFT) Negative (Negative) 11/06/16 11:42 - Hospital Course Hospital Course: 81 yo , f, PMhx/o HTN, Dyslipidemia, Stroke 12 years ago, CAP 2016 admitted for acute pylonephritis and Sepsis ( E coli). ID on board. Patient received meropenen, amikacin x 7 days. During hospitalization on Acute CHF and Afib with RVR, controlled now. Tourist Escort on board. Started on Xarelto. Hemodynamically stable, afebrile. PT evaluated and will be sent to TCU. Discharge Exam - Head Exam Head Exam: ATRAUMATIC, NORMOCEPHALIC - Eye Exam Eye Exam: Normal appearance - Respiratory Exam Respiratory Exam: Clear to PA & Lateral, Rales. absent: Wheezes Additional comments: scattered dry rales on right lung base - Cardiovascular Exam Cardiovascular Exam: Irregular Rhythm, +S1, +S2, Systolic Murmur Additional comments: 3/6 systolic murmur - GI/Abdominal Exam GI & Abdominal Exam: Normal Bowel Sounds, Soft. absent: Guarding, Tenderness - Extremities Exam Extremities exam: normal inspection - Neurological Exam Neurological exam: Alert, Oriented x3 - Psychiatric Exam Psychiatric exam: Normal Affect - Skin Skin Exam: Intact Discharge Plan - Follow Up Plan Condition: FAIR Disposition: REHAB FACILITY/REHAB UNIT Instructions: Acute Pyelonephritis (DC), Sepsis (GEN) Additional Instructions: d/c to tcu. Clinical Quality Measures - CQM - Heart Failure Left Ventricular Function to be assessed after discharge: No NATHALIE Inhibitor Prescribed: No Contraindication/Reason for not providing: no Angiotensin II Receptor Hayde Prescribed: Yes AnticoagulationTherapy for Atrial Fibrillation/Atrialflutter: Yes Aldosterone Antagonist Prescribed: No Contraindication/Reason for not providing: no Hydralazine Nitrate Prescribed: No Contraindication/Reason for not providing: no Implantable Cardioverter Defibrillator Therapy: No Contraindication/Reason for not providing: no Cardiac Resynchronization Therapy Prescribed: Yes
== END 2016-11-11 15:46 | DRG 871 ==
LOC: H.ER 18:54 → H.ERHOLD 20:44 → H.MEDSURG1 11-04 01:35 → H.TEL 11-06 11:20
PROVIDERS: ADMIT Family Medicine; ATTEND Family Medicine
PROC: 3E0234Z Introduction of Serum, Toxoid and Vaccine into Muscle, Percutaneous Approach (ICD-10-PCS; principal; 2016-11-04)
DX: A41.51 Sepsis due to Escherichia coli [E. coli] (principal); I50.31 Acute diastolic (congestive) heart failure; E87.1 Hypo-osmolality and hyponatremia; N10 Acute pyelonephritis; J98.11 Atelectasis; I48.91 Unspecified atrial fibrillation; I35.0 Nonrheumatic aortic (valve) stenosis; I11.0 Hypertensive heart disease with heart failure; E87.6 Hypokalemia; E78.5 Hyperlipidemia, unspecified; R59.1 Generalized enlarged lymph nodes; Z23 Encounter for immunization; Z79.01 Long term (current) use of anticoagulants; Z96.641 Presence of right artificial hip joint; Z87.01 Personal history of pneumonia (recurrent); Z86.73 Personal history of transient ischemic attack (TIA), and cerebral infarction without residual deficits

== ENCOUNTER 2016-11-11 14:25 | Inpatient (IN) | payer OTHER, MEDICARE ==
[2016-11-11 15:52] VITALS: BMI 25.0
[2016-11-11 16:39] VITALS: RESP 20
--- NOTE | 2016-11-11 17:19 | CP.PCM.PN ---
Subjective - Date & Time of Evaluation Date of Evaluation: 11/11/16 Time of Evaluation: 17:17 - Subjective Subjective: ID NOTE CONTINUE CEFTRIAXONE FOR 7 DAYS Objective - Vital Signs/Intake and Output Vital Signs (last 24 hours): Temp Pulse Resp BP Pulse Ox 97.7 F 65 20 143/88 97 11/11/16 16:38 11/11/16 16:38 11/11/16 16:38 11/11/16 16:38 11/11/16 16:38 - Medications Medications: Current Medications Acetaminophen (Tylenol 325mg Tab) 650 mg PO Q6 PRN PRN Reason: Pain, Mild (1-3) Amlodipine Besylate (Norvasc) 10 mg PO DAILY [facility] Digoxin (Lanoxin) 0.25 mg PO DAILY [facility] Famotidine (Pepcid) 40 mg PO HS [facility] Furosemide (Lasix) 20 mg PO DAILY [facility] Losartan Potassium (Cozaar) 100 mg PO DAILY [facility] Metoprolol Tartrate (Lopressor) 25 mg PO Q12 [facility] Ondansetron HCl (Zofran Inj) 4 mg IVP Q6 PRN PRN Reason: Nausea/Vomiting Rivaroxaban (Xarelto) 15 mg PO QD5 [facility] PRN Reason: Protocol
[2016-11-11] MEDS: Digoxin 250 mcg (0.25 mg) Tab PO SCH (17:20)
--- NOTE | 2016-11-12 08:48 | CP.PCM.CON ---
History of Present Illness - History of Present Illness History of Present Illness: Full Note Dictated. CHF (LV, Distolic, Chr) Aortic Stenosis Atrial Fibrillation Recent UTI On Dig and Metoprolol for rate cintro On Xarelto for Oral Anticoagulation No evidence of volume over load Past Patient History - Infectious Disease Hx of Infectious Diseases: None - Past Medical History & Family History Past Medical History?: Yes - Past Social History Smoking Status: Never Smoked - CARDIAC Hx Cardiac Disorders: Yes Hx Hypercholesterolemia: Yes Hx Hypertension: Yes - PULMONARY Hx Respiratory Disorders: Yes Hx Pneumonia: Yes Hx Pulmonary Embolism: No - NEUROLOGICAL Hx Neurological Disorder: Yes Hx Transient Ischemic Attacks (TIA): Yes - HEENT Hx HEENT Problems: No - RENAL Hx Chronic Kidney Disease: No - ENDOCRINE/METABOLIC Hx Endocrine Disorders: No - HEMATOLOGICAL/ONCOLOGICAL Hx Blood Disorders: Yes Hx Anemia: Yes Hx Human Immunodeficiency Virus (HIV): No - INTEGUMENTARY Hx Dermatological Problems: No - MUSCULOSKELETAL/RHEUMATOLOGICAL Hx Musculoskeletal Disorders: Yes Hx Arthritis: Yes Hx Falls: Yes Hx Unsteady Gait: Yes - GASTROINTESTINAL Hx Gastrointestinal Disorders: Yes Hx Hemorrhoids: Yes (and were noted on this admission) Hx Nausea: Yes (prior to this admission) Hx Vomiting: Yes (prior to this admission for three days) - GENITOURINARY/GYNECOLOGICAL Hx Genitourinary Disorders: No - PSYCHIATRIC Hx Substance Use: No - SURGICAL HISTORY Hx Surgeries: Yes Hx Orthopedic Surgery: Yes (right hip surgery) - ANESTHESIA Hx Anesthesia: Yes Hx Anesthesia Reactions: No Hx Malignant Hyperthermia: No Has any member of the family had a problem w/ anesthesia?: No Meds Allergies/Adverse Reactions: Allergies Allergy/AdvReac Type Severity Reaction Status Date / Time No Known Allergies Allergy Verified 11/03/16 18:55 - Medications Medications: Current Medications Acetaminophen (Tylenol 325mg Tab) 650 mg PO Q6 PRN PRN Reason: Pain, Mild (1-3) Amlodipine Besylate (Norvasc) 10 mg PO DAILY [facility] Digoxin (Lanoxin) 0.25 mg PO DAILY [facility] Last Admin: 11/11/16 17:20 Dose: 0.25 mg Famotidine (Pepcid) 40 mg PO HS [facility] Last Admin: 11/11/16 21:00 Dose: 40 mg Furosemide (Lasix) 20 mg PO DAILY [facility] Ceftriaxone Sodium 1 gm/ (Sodium Chloride) 100 mls @ 100 mls/hr IVPB DAILY [facility] Losartan Potassium (Cozaar) 100 mg PO DAILY [facility] Metoprolol Tartrate (Lopressor) 25 mg PO Q12 [facility] Last Admin: 11/11/16 21:06 Dose: 25 mg Ondansetron HCl (Zofran Inj) 4 mg IVP Q6 PRN PRN Reason: Nausea/Vomiting Rivaroxaban (Xarelto) 15 mg PO QD5 [facility] PRN Reason: Protocol Last Admin: 11/11/16 17:20 Dose: 15 mg Results - Vital Signs Recent Vital Signs: Last Vital Signs Temp 97.0 F L 11/12/16 08:22 Pulse 93 H 11/12/16 08:22 Resp 20 11/12/16 08:22 BP 135/82 11/12/16 08:22 Pulse Ox 99 11/12/16 08:22
--- NOTE | 2016-11-12 09:07 | CP.PCM.HP ---
<Carissa Hollins - Last Filed: 11/12/16 15:55> History of Present Illness - History of Present Illness History of Present Illness: 81 yo , f, PMhx/o HTN, Dyslipidemia, Stroke 12 years ago, CAP 2016, severe Aortic stenosis admitted for acute pylonephritis and Sepsis ( E coli), treated with meropenen, amikacin days. During hospitalization on Acute CHF and Afib with RVR, controlled now. [employer] and Pulmonology on board. Started on Xarelto. Hemodynamically stable, afebrile. PT evaluated and sent to TCU. ID on board. Patient reports feeling better today. Denies chest pain, SOB, fever, dysuria. PATIENT WITH SEVERE AORTIC STENOSIS. PHYSICAL THERAPY WITH PRECAUTION FOR POSSIBLE SYNCOPE. PMHx: HTN, Dyslipidemia, Stroke 12 years ago, CAP 2015 PSHx: RT. Hip Replacement Surgery - 2010 FMHx: Not contributory SMHx: Denies TOB, ETOH, DRUGS HOME: Lives with son Ambulates with walker Allergies: NKDA Home Meds: Losartan 100 mg daily Metoprolol succinate 50 mg daily Norvasc 10 mg daily Plavix 75 mg daily Niacin 500mg 1 tab Daily PMD: Dr. Earl Pharmacy: [facility] May Present on Admission - Present on Admission Any Indicators Present on Admission: No History of DVT/PE: No History of Uncontrolled Diabetes: No Urinary Catheter: No Decubitus Ulcer Present: No Review of Systems - Constitutional Constitutional: As Per HPI - Cardiovascular Cardiovascular: As Per HPI - Respiratory Respiratory: As Per HPI - Gastrointestinal Gastrointestinal: As Per HPI - Genitourinary Genitourinary: As Per HPI Past Patient History - Infectious Disease Hx of Infectious Diseases: None - Past Medical History & Family History Past Medical History?: Yes - Past Social History Smoking Status: Never Smoked - CARDIAC Hx Cardiac Disorders: Yes Hx Hypercholesterolemia: Yes Hx Hypertension: Yes - PULMONARY Hx Respiratory Disorders: Yes Hx Pneumonia: Yes Hx Pulmonary Embolism: No - NEUROLOGICAL Hx Neurological Disorder: Yes Hx Transient Ischemic Attacks (TIA): Yes - HEENT Hx HEENT Problems: No - RENAL Hx Chronic Kidney Disease: No - ENDOCRINE/METABOLIC Hx Endocrine Disorders: No - HEMATOLOGICAL/ONCOLOGICAL Hx Blood Disorders: Yes Hx Anemia: Yes Hx Human Immunodeficiency Virus (HIV): No - INTEGUMENTARY Hx Dermatological Problems: No - MUSCULOSKELETAL/RHEUMATOLOGICAL Hx Musculoskeletal Disorders: Yes Hx Arthritis: Yes Hx Falls: Yes Hx Unsteady Gait: Yes - GASTROINTESTINAL Hx Gastrointestinal Disorders: Yes Hx Hemorrhoids: Yes (and were noted on this admission) Hx Nausea: Yes (prior to this admission) Hx Vomiting: Yes (prior to this admission for three days) - GENITOURINARY/GYNECOLOGICAL Hx Genitourinary Disorders: No - PSYCHIATRIC Hx Substance Use: No - SURGICAL HISTORY Hx Surgeries: Yes Hx Orthopedic Surgery: Yes (right hip surgery) - ANESTHESIA Hx Anesthesia: Yes Hx Anesthesia Reactions: No Hx Malignant Hyperthermia: No Has any member of the family had a problem w/ anesthesia?: No Meds Allergies/Adverse Reactions: Allergies Allergy/AdvReac Type Severity Reaction Status Date / Time No Known Allergies Allergy Verified 11/03/16 18:55 Physical Exam - Constitutional Appears: Non-toxic, No Acute Distress - Head Exam Head Exam: ATRAUMATIC, NORMOCEPHALIC - Eye Exam Eye Exam: Normal appearance - ENT Exam ENT Exam: Normal Exam - Neck Exam Neck exam: Positive for: Normal Inspection - Respiratory Exam Respiratory Exam: Clear to Auscultation Bilateral. absent: Rales, Rhonchi, Wheezes - Cardiovascular Exam Cardiovascular Exam: Irregular Rhythm, +S1, +S2, Systolic Murmur Additional comments: 3/6 systolic murmur - GI/Abdominal Exam GI & Abdominal Exam: Normal Bowel Sounds, Soft. absent: Rebound, Tenderness - Extremities Exam Extremities exam: Positive for: normal inspection. Negative for: calf tenderness, pedal edema - Neurological Exam Neurological exam: Alert, Oriented x3 - Psychiatric Exam Psychiatric exam: Normal Affect, Normal Mood - Skin Skin Exam: Intact Results - Vital Signs Recent Vital Signs: Last Vital Signs Temp 97.0 F L 11/12/16 08:22 Pulse 93 H 11/12/16 08:22 Resp 20 11/12/16 08:22 BP 135/82 11/12/16 08:22 Pulse Ox 99 11/12/16 08:22 Assessment & Plan - Assessment and Plan (Free Text) Plan: 81 yo , f, admitted for acute pyelonephritis and Sepsis. with Acute CHF during hospitalization resolved. On TCU for physical therapy Assessment/Plan 1. Atrial Fibrillation with RVR Controlled Potentiating CHF Cardiology consult, Dr. Benjamin, appreciated Digoxin, Xarelto -At TCU for PT 2. Acute CHF diastolic Echo 11/05/16 Severe aortic stenosis. EF: 55-60 % Pulmonology consult, Dr. Bazan appreciated. Unlikely PE 11/09/16 CXR: R>L nonspecific interstitial changes Will add Lasix 20mg PO daily Daily weights Angiotensin convert normal Quantiferon gold negative 3. UTI with Bacteremia, E. Coli Resolved Status post Jesika and Amikacin Dr. Moser, ID on board, consult appreciated. Will c/w Rocephin x 7 days 4. HTN, controlled Continue Metoprolol Succinate 50mg po daily Continue Amlodipine 10mg po daily Continue Losartan 100mg po daily 5. DVT prophylaxis Xarelto 20 mg PO daily <Sammy Serrano - Last Filed: 11/14/16 06:41> Results - Vital Signs Recent Vital Signs: Last Vital Signs Temp 98.1 F 11/13/16 22:23 Pulse 62 11/13/16 22:23 Resp 20 11/13/16 22:23 BP 126/70 11/13/16 22:23 Pulse Ox 94 L 11/13/16 22:23 - Labs Result Diagrams: 11/13/16 07:37 Labs: Laboratory Results - last 24 hr 11/13/16 07:37 Sodium 142 Potassium 4.8 Chloride 103 Carbon Dioxide 27 Anion Gap 17 BUN 27 H Creatinine 0.6 L Est GFR ( Amer) > 60 Est GFR (Non-Af Amer) > 60 Random Glucose 88 Calcium 9.4 Attending/Attestation - Attestation I have personally seen and examined this patient.: Yes I have fully participated in the care of the patient.: Yes I have reviewed all pertinent clinical information: Yes
[2016-11-12] MEDS: Digoxin 250 mcg (0.25 mg) Tab PO SCH (09:21)
--- NOTE | 2016-11-12 11:22 | CP.PCM.PN ---
Subjective - Date & Time of Evaluation Date of Evaluation: 11/12/16 Time of Evaluation: 11:22 - Subjective Subjective: Seen in gym on TCU. Resting SpO2 on room air 94%, HR 58 BPM. Breath sounds are diminished bilaterally w/o audible wheeze or bronchial breathing. Heart is irregular with systolic murmur at base. No cyanosis or dependant edema. Appears stable from pulmonary standpoint at this time. Thank you. Objective - Vital Signs/Intake and Output Vital Signs (last 24 hours): Temp Pulse Resp BP Pulse Ox 97.0 F L 93 H 20 135/82 99 11/12/16 08:22 11/12/16 09:23 11/12/16 08:22 11/12/16 09:23 11/12/16 08:22 - Medications Medications: Current Medications Acetaminophen (Tylenol 325mg Tab) 650 mg PO Q6 PRN PRN Reason: Pain, Mild (1-3) Amlodipine Besylate (Norvasc) 10 mg PO DAILY [facility] Last Admin: 11/12/16 09:22 Dose: 10 mg Digoxin (Lanoxin) 0.25 mg PO DAILY [facility] Last Admin: 11/12/16 09:21 Dose: 0.25 mg Famotidine (Pepcid) 40 mg PO HS [facility] Last Admin: 11/11/16 21:00 Dose: 40 mg Furosemide (Lasix) 20 mg PO DAILY [facility] Last Admin: 11/12/16 09:22 Dose: 20 mg Ceftriaxone Sodium 1 gm/ (Sodium Chloride) 100 mls @ 100 mls/hr IVPB DAILY@ 1700 [facility] Losartan Potassium (Cozaar) 100 mg PO DAILY [facility] Last Admin: 11/12/16 09:23 Dose: 100 mg Metoprolol Tartrate (Lopressor) 25 mg PO Q12 [facility] Last Admin: 11/12/16 09:21 Dose: 25 mg Ondansetron HCl (Zofran Inj) 4 mg IVP Q6 PRN PRN Reason: Nausea/Vomiting Rivaroxaban (Xarelto) 15 mg PO QD5 [facility] PRN Reason: Protocol Last Admin: 11/11/16 17:20 Dose: 15 mg
--- NOTE | 2016-11-12 12:34 | CON ---
DATE: 11/12/2016 She is hospitalized under the resident's care in room 710 of transitional care unit. HISTORY OF PRESENT ILLNESS: This 81-year-old female was hospitalized for urinary tract infection and then developed congestive cardiac failure with onset of atrial fibrillation. Once her heart rate wa s well controlled and she was diuresed her severe dyspnea promptly resolved. She was known to have a ortic stenosis and undergoing an echocardiogram she was found to have a severe aortic valve stenosis with a valve area of 0.92 square cm and a peak aortic valve gradient of 56 mmHg with a mean aortic va lve gradient of 32 mmHg. Her left ventricular systolic function was preserved with an ejection fract ion in the range of 60%. Her left atrium was moderately dilated. The pulmonary artery systolic pres sure was 36 mmHg. The patient was given digoxin and metoprolol for rate control and eventually was s tarted on rivaroxaban for oral anticoagulation to prevent systemic embolization. Her symptoms have d ramatically resolved. She is here in the transitional care unit for physical therapy and rehab befor e returning home. PHYSICAL EXAMINATION: GENERAL: Shows an elderly lady sitting up in a chair, alert, awake, coherent. VITAL SIGNS: Afebrile with a pulse rate of 80 beats per minute, irregularly irregular. Her blood pr essure was 106/80 mmHg. NECK: Her jugular venous pressure was not elevated. VASCULAR: There was no edema over her lower extremity. The pedal pulses were well felt. There wer e no carotid bruits. EXTREMITIES: Warm, nailbeds are pink. There was no central or peripheral cyanosis. There was no cl ubbing. CARDIAC: Her apex was not palpable. The first heart sound was normal. The second heart sound was a bsent. An ejection systolic murmur was audible in the aortic area conducted to the base of the neck. There was no S3 gallop. LUNGS: There were no rales. ABDOMEN: Soft. Her liver and spleen were not palpable. IMPRESSION: At this time, is congestive cardiac failure which was left ventricular diastolic and chr onic secondary to aortic stenosis and atrial fibrillation with history of bilateral hip replacement a nd recent urinary tract infection. The patient will have a basic metabolic profile drawn to find out if her BUN and creatinine are stable. It is very likely that she may need to come off 20 mg of Lasi x if she continues to display significant reduced tissue perfusion in the form of rising BUN and crea tinine. Gildardo Benjamin MD cc: 23 TT: 11/12/2016 12:34:38 Confirmation # [id number] Dictation # [id number] mn
[2016-11-13 08:08] LABS: BLOOD UREA NITROGEN 27 mg/dl (7-17); CALCIUM 9.4 mg/dL (8.4-10.2); CARBON DIOXIDE 27 mmol/L (22-30); CHLORIDE 103 mmol/L (98-107); GFR AFRICAN-AMERICAN > 60; GLUCOSE,RANDOM 88 mg/dL (65-105); POTASSIUM 4.8 MMOL/L (3.6-5.0); SODIUM 142 mmol/l (132-148)
[2016-11-13] MEDS: Digoxin 250 mcg (0.25 mg) Tab PO SCH (08:28)
--- NOTE | 2016-11-13 08:31 | CP.PCM.PN ---
<Carissa Hollins - Last Filed: 11/13/16 17:44> Subjective - Date & Time of Evaluation Date of Evaluation: 11/13/16 Time of Evaluation: 07:50 - Subjective Subjective: Patient seen and examined bedside feeling better. Denies SOB, chest pain, palpitation, fever, dysuria. Improving physical condition by PT Objective - Vital Signs/Intake and Output Vital Signs (last 24 hours): Temp Pulse Resp BP Pulse Ox 97.5 F L 83 20 131/80 98 11/13/16 08:17 11/13/16 08:28 11/13/16 08:17 11/13/16 08:28 11/13/16 08:17 - Medications Medications: Current Medications Acetaminophen (Tylenol 325mg Tab) 650 mg PO Q6 PRN PRN Reason: Pain, Mild (1-3) Last Admin: 11/12/16 13:52 Dose: 650 mg Amlodipine Besylate (Norvasc) 10 mg PO DAILY [facility] Last Admin: 11/13/16 08:27 Dose: 10 mg Digoxin (Lanoxin) 0.25 mg PO DAILY [facility] Last Admin: 11/13/16 08:28 Dose: 0.25 mg Famotidine (Pepcid) 40 mg PO HS [facility] Last Admin: 11/12/16 21:08 Dose: 40 mg Furosemide (Lasix) 20 mg PO DAILY [facility] Last Admin: 11/13/16 08:28 Dose: 20 mg Ceftriaxone Sodium 1 gm/ (Sodium Chloride) 100 mls @ 100 mls/hr IVPB DAILY@ 1700 [facility] Last Admin: 11/12/16 16:53 Dose: 100 mls/hr Losartan Potassium (Cozaar) 100 mg PO DAILY [facility] Last Admin: 11/13/16 08:27 Dose: 100 mg Metoprolol Tartrate (Lopressor) 25 mg PO Q12 [facility] Last Admin: 11/13/16 08:28 Dose: 25 mg Ondansetron HCl (Zofran Inj) 4 mg IVP Q6 PRN PRN Reason: Nausea/Vomiting Rivaroxaban (Xarelto) 15 mg PO QD5 [facility] PRN Reason: Protocol Last Admin: 11/12/16 16:54 Dose: 15 mg - Labs Labs: 11/13/16 07:37 - Constitutional Appears: Non-toxic, No Acute Distress - Head Exam Head Exam: ATRAUMATIC, NORMOCEPHALIC - Eye Exam Eye Exam: Normal appearance - Respiratory Exam Respiratory Exam: Clear to Ausculation Bilateral. absent: Rales, Rhonchi, Wheezes - Cardiovascular Exam Cardiovascular Exam: Irregular Rhythm, +S1, +S2 - GI/Abdominal Exam GI & Abdominal Exam: Soft, Normal Bowel Sounds. absent: Tenderness - Extremities Exam Extremities Exam: Normal Inspection. absent: Pedal Edema - Neurological Exam Neurological Exam: Alert, Awake - Psychiatric Exam Psychiatric exam: Normal Affect, Normal Mood - Skin Skin Exam: Intact Assessment and Plan - Assessment and Plan (Free Text) Plan: 81 yo , f, admitted for acute pyelonephritis and Sepsis, had Acute CHF with afib and RVR during hospitalization resolved. In TCU for physical therapy Assessment/Plan 1. Atrial Fibrillation with RVR Controlled Potentiating CHF Cardiology consult, Dr. Benjamin, appreciated Digoxin, Xarelto -At TCU for PT 2. Acute CHF diastolic Echo 11/05/16 Severe aortic stenosis. EF: 55-60 % Pulmonology consult, Dr. Bazan appreciated. Unlikely PE 11/09/16 CXR: R>L nonspecific interstitial changes Lasix 20mg PO daily Daily weights Angiotensin convert normal Quantiferon gold negative 3. UTI with Bacteremia, E. Coli Resolved Status post Jesika and Amikacin Dr. Moser, ID on board, consult appreciated. Will c/w Rocephin x 7 days 4. HTN, controlled Continue Metoprolol Succinate 50mg po daily Continue Amlodipine 10mg po daily Continue Losartan 100mg po daily 5. DVT prophylaxis Xarelto 20 mg PO daily <Tylor Dias - Last Filed: 11/15/16 07:03> Objective - Vital Signs/Intake and Output Vital Signs (last 24 hours): Temp Pulse Resp BP Pulse Ox 97.2 F L 64 20 123/53 L 100 11/14/16 16:11 11/14/16 21:25 11/14/16 16:11 11/14/16 16:11 11/14/16 16:11 - Medications Medications: Current Medications Acetaminophen (Tylenol 325mg Tab) 650 mg PO Q6 PRN PRN Reason: Pain, Mild (1-3) Last Admin: 11/14/16 21:28 Dose: 650 mg Amlodipine Besylate (Norvasc) 10 mg PO DAILY [facility] Last Admin: 11/14/16 08:45 Dose: 10 mg Digoxin (Lanoxin) 0.25 mg PO DAILY [facility] Last Admin: 11/14/16 08:51 Dose: 0.25 mg Famotidine (Pepcid) 40 mg PO HS [facility] Last Admin: 11/14/16 22:23 Dose: 40 mg Furosemide (Lasix) 20 mg PO DAILY [facility] Last Admin: 11/14/16 08:51 Dose: 20 mg Ceftriaxone Sodium 1 gm/ (Sodium Chloride) 100 mls @ 100 mls/hr IVPB DAILY@ 1700 [facility] Last Admin: 11/14/16 16:20 Dose: 100 mls/hr Losartan Potassium (Cozaar) 100 mg PO DAILY [facility] Last Admin: 11/14/16 08:45 Dose: 100 mg Metoprolol Tartrate (Lopressor) 25 mg PO Q12 [facility] Last Admin: 11/14/16 21:25 Dose: 25 mg Ondansetron HCl (Zofran Inj) 4 mg IVP Q6 PRN PRN Reason: Nausea/Vomiting Rivaroxaban (Xarelto) 15 mg PO QD5 [facility] PRN Reason: Protocol Last Admin: 11/14/16 16:17 Dose: 15 mg - Labs Labs: 11/13/16 07:37 Attending/Attestation - Attestation I have personally seen and examined this patient.: Yes I have fully participated in the care of the patient.: Yes I have reviewed all pertinent clinical information, including history, physical exam and plan: Yes
--- NOTE | 2016-11-13 09:27 | CP.PCM.PN ---
Subjective - Date & Time of Evaluation Date of Evaluation: 11/13/16 Time of Evaluation: 09:20 - Subjective Subjective: Resting comfortably, denies any dyspnoea HR well controlled at 64 BPM , irreg BP 114/70 mm Hg No rales, no gallop Ejection syst murmur of present Today's labs show gradually rising BUN (at 27 mg now) Creatinine and GFR stable Electrolytes normal Tolerates present Rxwell PT to continue. Objective - Vital Signs/Intake and Output Vital Signs (last 24 hours): Temp Pulse Resp BP Pulse Ox 97.5 F L 83 20 131/80 98 11/13/16 08:17 11/13/16 08:28 11/13/16 08:17 11/13/16 08:28 11/13/16 08:17 - Medications Medications: Current Medications Acetaminophen (Tylenol 325mg Tab) 650 mg PO Q6 PRN PRN Reason: Pain, Mild (1-3) Last Admin: 11/12/16 13:52 Dose: 650 mg Amlodipine Besylate (Norvasc) 10 mg PO DAILY [facility] Last Admin: 11/13/16 08:27 Dose: 10 mg Digoxin (Lanoxin) 0.25 mg PO DAILY [facility] Last Admin: 11/13/16 08:28 Dose: 0.25 mg Famotidine (Pepcid) 40 mg PO HS [facility] Last Admin: 11/12/16 21:08 Dose: 40 mg Furosemide (Lasix) 20 mg PO DAILY [facility] Last Admin: 11/13/16 08:28 Dose: 20 mg Ceftriaxone Sodium 1 gm/ (Sodium Chloride) 100 mls @ 100 mls/hr IVPB DAILY@ 1700 [facility] Last Admin: 11/12/16 16:53 Dose: 100 mls/hr Losartan Potassium (Cozaar) 100 mg PO DAILY [facility] Last Admin: 11/13/16 08:27 Dose: 100 mg Metoprolol Tartrate (Lopressor) 25 mg PO Q12 [facility] Last Admin: 11/13/16 08:28 Dose: 25 mg Ondansetron HCl (Zofran Inj) 4 mg IVP Q6 PRN PRN Reason: Nausea/Vomiting Rivaroxaban (Xarelto) 15 mg PO QD5 [facility] PRN Reason: Protocol Last Admin: 11/12/16 16:54 Dose: 15 mg - Labs Labs: 11/13/16 07:37
[2016-11-14] MEDS: Digoxin 250 mcg (0.25 mg) Tab PO SCH (08:51)
--- NOTE | 2016-11-14 10:26 | CP.PCM.PN ---
<AllegraCarissa doe - Last Filed: 11/14/16 15:15> Subjective - Date & Time of Evaluation Date of Evaluation: 11/14/16 Time of Evaluation: 07:55 - Subjective Subjective: Patient seen and examined bedside in TCU feeling better. Denies chest pain, SOb , palpitation, f, n/v/d/, dysuria. Improving on physical therapy. Objective - Vital Signs/Intake and Output Vital Signs (last 24 hours): Temp Pulse Resp BP Pulse Ox 97.7 F 80 20 100/52 L 98 11/14/16 08:12 11/14/16 08:49 11/14/16 08:12 11/14/16 08:51 11/14/16 08:12 - Medications Medications: Current Medications Acetaminophen (Tylenol 325mg Tab) 650 mg PO Q6 PRN PRN Reason: Pain, Mild (1-3) Last Admin: 11/14/16 08:49 Dose: 650 mg Amlodipine Besylate (Norvasc) 10 mg PO DAILY [facility] Last Admin: 11/13/16 08:27 Dose: 10 mg Digoxin (Lanoxin) 0.25 mg PO DAILY [facility] Last Admin: 11/14/16 08:51 Dose: 0.25 mg Famotidine (Pepcid) 40 mg PO HS [facility] Last Admin: 11/13/16 22:00 Dose: 40 mg Furosemide (Lasix) 20 mg PO DAILY [facility] Last Admin: 11/14/16 08:51 Dose: 20 mg Ceftriaxone Sodium 1 gm/ (Sodium Chloride) 100 mls @ 100 mls/hr IVPB DAILY@ 1700 [facility] Last Admin: 11/13/16 16:07 Dose: 100 mls/hr Losartan Potassium (Cozaar) 100 mg PO DAILY [facility] Last Admin: 11/13/16 08:27 Dose: 100 mg Metoprolol Tartrate (Lopressor) 25 mg PO Q12 [facility] Last Admin: 11/14/16 08:49 Dose: 25 mg Ondansetron HCl (Zofran Inj) 4 mg IVP Q6 PRN PRN Reason: Nausea/Vomiting Rivaroxaban (Xarelto) 15 mg PO QD5 [facility] PRN Reason: Protocol Last Admin: 11/13/16 16:56 Dose: 15 mg - Labs Labs: 11/13/16 07:37 - Constitutional Appears: Non-toxic, No Acute Distress - Head Exam Head Exam: ATRAUMATIC, NORMOCEPHALIC - Respiratory Exam Respiratory Exam: Clear to Ausculation Bilateral. absent: Rales, Wheezes, Stridor - Cardiovascular Exam Cardiovascular Exam: Irregular Rhythm, +S1, +S2, Murmur Additional comments: systolic murmur /6 - GI/Abdominal Exam GI & Abdominal Exam: Soft, Normal Bowel Sounds. absent: Tenderness - Extremities Exam Extremities Exam: Normal Inspection. absent: Calf Tenderness, Pedal Edema - Neurological Exam Neurological Exam: Alert, Awake - Psychiatric Exam Psychiatric exam: Normal Affect, Normal Mood - Skin Skin Exam: Intact Assessment and Plan - Assessment and Plan (Free Text) Plan: 81 yo , f, admitted for acute pyelonephritis and Sepsis, had Acute CHF with afib and RVR during hospitalization resolved. In TCU for physical therapy Assessment/Plan 1. Atrial Fibrillation with RVR Controlled Potentiating CHF Cardiology consult, Dr. Benjamin, appreciated Digoxin, Xarelto -At TCU for PT. c/w PT 2. Acute CHF diastolic Echo 11/05/16 Severe aortic stenosis. EF: 55-60 % Pulmonology consult, Dr. Bazan appreciated. Unlikely PE 11/09/16 CXR: R>L nonspecific interstitial changes Lasix 20mg PO daily Daily weights Angiotensin convert normal Quantiferon gold negative 3. UTI with Bacteremia, E. Coli Resolved Status post Jesika and Amikacin Dr. Moser, ID on board, consult appreciated. Will c/w Rocephin x 7 days 4. HTN, controlled Continue Metoprolol Succinate 50mg po daily Continue Amlodipine 10mg po daily Continue Losartan 100mg po daily 5. DVT prophylaxis Xarelto 20 mg PO daily <Sammy Serrano - Last Filed: 11/15/16 07:15> Objective - Vital Signs/Intake and Output Vital Signs (last 24 hours): Temp Pulse Resp BP Pulse Ox 97.2 F L 64 20 123/53 L 100 11/14/16 16:11 11/14/16 21:25 11/14/16 16:11 11/14/16 16:11 11/14/16 16:11 - Medications Medications: Current Medications Acetaminophen (Tylenol 325mg Tab) 650 mg PO Q6 PRN PRN Reason: Pain, Mild (1-3) Last Admin: 11/14/16 21:28 Dose: 650 mg Amlodipine Besylate (Norvasc) 10 mg PO DAILY [facility] Last Admin: 11/14/16 08:45 Dose: 10 mg Digoxin (Lanoxin) 0.25 mg PO DAILY [facility] Last Admin: 11/14/16 08:51 Dose: 0.25 mg Famotidine (Pepcid) 40 mg PO HS [facility] Last Admin: 11/14/16 22:23 Dose: 40 mg Furosemide (Lasix) 20 mg PO DAILY [facility] Last Admin: 11/14/16 08:51 Dose: 20 mg Ceftriaxone Sodium 1 gm/ (Sodium Chloride) 100 mls @ 100 mls/hr IVPB DAILY@ 1700 [facility] Last Admin: 11/14/16 16:20 Dose: 100 mls/hr Losartan Potassium (Cozaar) 100 mg PO DAILY [facility] Last Admin: 11/14/16 08:45 Dose: 100 mg Metoprolol Tartrate (Lopressor) 25 mg PO Q12 [facility] Last Admin: 11/14/16 21:25 Dose: 25 mg Ondansetron HCl (Zofran Inj) 4 mg IVP Q6 PRN PRN Reason: Nausea/Vomiting Rivaroxaban (Xarelto) 15 mg PO QD5 [facility] PRN Reason: Protocol Last Admin: 11/14/16 16:17 Dose: 15 mg - Labs Labs: 11/13/16 07:37 Attending/Attestation - Attestation I have personally seen and examined this patient.: Yes I have fully participated in the care of the patient.: Yes I have reviewed all pertinent clinical information, including history, physical exam and plan: Yes
--- NOTE | 2016-11-15 07:22 | CP.PCM.PN ---
Subjective - Date & Time of Evaluation Date of Evaluation: 11/15/16 Time of Evaluation: 06:45 - Subjective Subjective: feels ok no adverse event over not no acute change in status Objective - Vital Signs/Intake and Output Vital Signs (last 24 hours): Temp Pulse Resp BP Pulse Ox 97.2 F L 64 20 123/53 L 100 11/14/16 16:11 11/14/16 21:25 11/14/16 16:11 11/14/16 16:11 11/14/16 16:11 - Medications Medications: Current Medications Acetaminophen (Tylenol 325mg Tab) 650 mg PO Q6 PRN PRN Reason: Pain, Mild (1-3) Last Admin: 11/14/16 21:28 Dose: 650 mg Amlodipine Besylate (Norvasc) 10 mg PO DAILY [facility] Last Admin: 11/14/16 08:45 Dose: 10 mg Digoxin (Lanoxin) 0.25 mg PO DAILY [facility] Last Admin: 11/14/16 08:51 Dose: 0.25 mg Famotidine (Pepcid) 40 mg PO HS [facility] Last Admin: 11/14/16 22:23 Dose: 40 mg Furosemide (Lasix) 20 mg PO DAILY [facility] Last Admin: 11/14/16 08:51 Dose: 20 mg Ceftriaxone Sodium 1 gm/ (Sodium Chloride) 100 mls @ 100 mls/hr IVPB DAILY@ 1700 [facility] Last Admin: 11/14/16 16:20 Dose: 100 mls/hr Losartan Potassium (Cozaar) 100 mg PO DAILY [facility] Last Admin: 11/14/16 08:45 Dose: 100 mg Metoprolol Tartrate (Lopressor) 25 mg PO Q12 [facility] Last Admin: 11/14/16 21:25 Dose: 25 mg Ondansetron HCl (Zofran Inj) 4 mg IVP Q6 PRN PRN Reason: Nausea/Vomiting Rivaroxaban (Xarelto) 15 mg PO QD5 [facility] PRN Reason: Protocol Last Admin: 11/14/16 16:17 Dose: 15 mg - Labs Labs: 11/13/16 07:37 - Constitutional Appears: No Acute Distress - Head Exam Head Exam: NORMAL INSPECTION - ENT Exam ENT Exam: Mucous Membranes Moist - Neck Exam Neck Exam: Normal Inspection - Respiratory Exam Respiratory Exam: Decreased Breath Sounds - Cardiovascular Exam Cardiovascular Exam: Irregular Rhythm, Murmur - GI/Abdominal Exam GI & Abdominal Exam: Normal Bowel Sounds - Extremities Exam Extremities Exam: absent: Pedal Edema, Tenderness - Neurological Exam Neurological Exam: Alert - Psychiatric Exam Psychiatric exam: Normal Affect - Skin Skin Exam: Intact Assessment and Plan (1) Abnormal finding on urinalysis Status: Acute (2) Altered mental status Status: Resolved (3) Hip pain Status: Chronic (4) Hypertension Status: Chronic (5) Weakness Status: Acute (6) Aortic stenosis Status: Chronic (7) Atrial fibrillation Status: Chronic (8) Osteoarthritis Status: Chronic - Assessment and Plan (Free Text) Assessment: continue current care plan P therapy with walker for gain training and ecreae fall ris once cleared for DC by all consultants patietn can go home on IV rocephin would need to change to PO Dr Moser can decided what is the best choice continue all current meds can stay until $?$ however family nay want to take her home early must fu with cardiology a nd Dr Dias as an out patietn needs assistance at home High risk for readmission hIgh risk for falls need max assitance at home once discharged
[2016-11-15] MEDS: Digoxin 250 mcg (0.25 mg) Tab PO SCH (08:30)
--- NOTE | 2016-11-15 09:48 | CP.PCM.PN ---
Subjective - Date & Time of Evaluation Date of Evaluation: 11/15/16 Time of Evaluation: 09:35 - Subjective Subjective: Sleeps well, has good appetite Does reasonably well during PT (using a walker) HR well controlled, On 20 mg of furosemide Xarelto for anticoagulation May go home on present Rx Will follow as out pt. , Objective - Vital Signs/Intake and Output Vital Signs (last 24 hours): Temp Pulse Resp BP Pulse Ox 97.2 F L 78 20 155/83 H 100 11/14/16 16:11 11/15/16 08:30 11/14/16 16:11 11/15/16 08:30 11/14/16 16:11 - Medications Medications: Current Medications Acetaminophen (Tylenol 325mg Tab) 650 mg PO Q6 PRN PRN Reason: Pain, Mild (1-3) Last Admin: 11/14/16 21:28 Dose: 650 mg Amlodipine Besylate (Norvasc) 10 mg PO DAILY [facility] Last Admin: 11/15/16 08:30 Dose: 10 mg Digoxin (Lanoxin) 0.25 mg PO DAILY [facility] Last Admin: 11/15/16 08:30 Dose: 0.25 mg Famotidine (Pepcid) 40 mg PO HS [facility] Last Admin: 11/14/16 22:23 Dose: 40 mg Furosemide (Lasix) 20 mg PO DAILY [facility] Last Admin: 11/15/16 08:29 Dose: 20 mg Ceftriaxone Sodium 1 gm/ (Sodium Chloride) 100 mls @ 100 mls/hr IVPB DAILY@ 1700 [facility] Last Admin: 11/14/16 16:20 Dose: 100 mls/hr Losartan Potassium (Cozaar) 100 mg PO DAILY [facility] Last Admin: 11/15/16 08:30 Dose: 100 mg Metoprolol Tartrate (Lopressor) 25 mg PO Q12 [facility] Last Admin: 11/15/16 08:30 Dose: 25 mg Ondansetron HCl (Zofran Inj) 4 mg IVP Q6 PRN PRN Reason: Nausea/Vomiting Rivaroxaban (Xarelto) 15 mg PO QD5 [facility] PRN Reason: Protocol Last Admin: 11/14/16 16:17 Dose: 15 mg - Labs Labs: 11/13/16 07:37
--- NOTE | 2016-11-15 14:41 | CP.PCM.PN ---
<Carissa Hollins - Last Filed: 11/15/16 15:00> Subjective - Date & Time of Evaluation Date of Evaluation: 11/15/16 Time of Evaluation: 07:40 - Subjective Subjective: Patient seen and examined bedside feeling better. Denies chest pain SOB,N, V, D , dysuria. Improving physical condition with PT. Anticipate discharge on friday with Oral antibiotic for home Cipro 500 mg BID x 5 days. Objective - Vital Signs/Intake and Output Vital Signs (last 24 hours): Temp Pulse Resp BP Pulse Ox 97.2 F L 78 20 155/83 H 100 11/14/16 16:11 11/15/16 08:30 11/14/16 16:11 11/15/16 08:30 11/14/16 16:11 - Medications Medications: Current Medications Acetaminophen (Tylenol 325mg Tab) 650 mg PO Q6 PRN PRN Reason: Pain, Mild (1-3) Last Admin: 11/14/16 21:28 Dose: 650 mg Amlodipine Besylate (Norvasc) 10 mg PO DAILY [facility] Last Admin: 11/15/16 08:30 Dose: 10 mg Digoxin (Lanoxin) 0.25 mg PO DAILY [facility] Last Admin: 11/15/16 08:30 Dose: 0.25 mg Famotidine (Pepcid) 40 mg PO HS [facility] Last Admin: 11/14/16 22:23 Dose: 40 mg Furosemide (Lasix) 20 mg PO DAILY [facility] Last Admin: 11/15/16 08:29 Dose: 20 mg Ceftriaxone Sodium 1 gm/ (Sodium Chloride) 100 mls @ 100 mls/hr IVPB DAILY@ 1700 [facility] Last Admin: 11/14/16 16:20 Dose: 100 mls/hr Losartan Potassium (Cozaar) 100 mg PO DAILY [facility] Last Admin: 11/15/16 08:30 Dose: 100 mg Metoprolol Tartrate (Lopressor) 25 mg PO Q12 [facility] Last Admin: 11/15/16 08:30 Dose: 25 mg Ondansetron HCl (Zofran Inj) 4 mg IVP Q6 PRN PRN Reason: Nausea/Vomiting Rivaroxaban (Xarelto) 15 mg PO QD5 [facility] PRN Reason: Protocol Last Admin: 11/14/16 16:17 Dose: 15 mg - Labs Labs: 11/13/16 07:37 - Constitutional Appears: Non-toxic, No Acute Distress - Head Exam Head Exam: ATRAUMATIC, NORMOCEPHALIC - ENT Exam ENT Exam: Normal Exam - Respiratory Exam Respiratory Exam: Clear to Ausculation Bilateral. absent: Rales, Wheezes, Stridor - Cardiovascular Exam Cardiovascular Exam: Irregular Rhythm, REGULAR RHYTHM, +S1, +S2, Murmur Additional comments: 3/6 systolic murmur - GI/Abdominal Exam GI & Abdominal Exam: Soft, Normal Bowel Sounds. absent: Tenderness - Extremities Exam Extremities Exam: Normal Inspection. absent: Calf Tenderness, Pedal Edema - Neurological Exam Neurological Exam: Alert, Awake, Oriented x3 - Psychiatric Exam Psychiatric exam: Normal Affect, Normal Mood - Skin Skin Exam: Intact Assessment and Plan - Assessment and Plan (Free Text) Plan: 81 yo , f, admitted for acute pyelonephritis and Sepsis, had Acute CHF with afib and RVR during hospitalization resolved. In TCU for physical therapy Assessment/Plan 1. Atrial Fibrillation with RVR Controlled Potentiating CHF Cardiology consult, Dr. Benjamin, appreciated Digoxin, Xarelto -At TCU for PT. c/w PT 2. Acute CHF diastolic Echo 11/05/16 Severe aortic stenosis. EF: 55-60 % Pulmonology consult, Dr. Bazan appreciated. Unlikely PE 11/09/16 CXR: R>L nonspecific interstitial changes Lasix 20mg PO daily Daily weights Angiotensin convert normal Quantiferon gold negative 3. UTI with Bacteremia, E. Coli Resolved Status post Jesika and Amikacin Dr. Moser, ID on board, consult appreciated. Will c/w Rocephin x 7 days. today 11/22 day. will be discharged patient on friday on Ciprofloxacin 500 mg BID x 5 days 4. HTN, controlled Continue Metoprolol Succinate 50mg po daily Continue Amlodipine 10mg po daily Continue Losartan 100mg po daily 5. DVT prophylaxis Xarelto 20 mg PO daily <Sammy Serrano - Last Filed: 11/18/16 06:38> Objective - Vital Signs/Intake and Output Vital Signs (last 24 hours): Temp Pulse Resp BP Pulse Ox 98.2 F 61 20 129/61 94 L 11/17/16 21:13 11/17/16 21:58 11/17/16 21:13 11/17/16 21:58 11/17/16 21:13 - Medications Medications: Current Medications Acetaminophen (Tylenol 325mg Tab) 650 mg PO Q6 PRN PRN Reason: Pain, Mild (1-3) Last Admin: 11/14/16 21:28 Dose: 650 mg Amlodipine Besylate (Norvasc) 10 mg PO DAILY [facility] Last Admin: 11/17/16 08:36 Dose: 10 mg Digoxin (Lanoxin) 0.25 mg PO DAILY [facility] Last Admin: 11/17/16 08:35 Dose: 0.25 mg Famotidine (Pepcid) 40 mg PO HS [facility] Last Admin: 11/17/16 21:59 Dose: 40 mg Furosemide (Lasix) 20 mg PO DAILY [facility] Last Admin: 11/17/16 08:34 Dose: 20 mg Ceftriaxone Sodium 1 gm/ (Sodium Chloride) 100 mls @ 100 mls/hr IVPB DAILY@ 1700 [facility] Last Admin: 11/17/16 16:42 Dose: 100 mls/hr Losartan Potassium (Cozaar) 100 mg PO DAILY [facility] Last Admin: 11/17/16 08:34 Dose: 100 mg Metoprolol Tartrate (Lopressor) 25 mg PO Q12 [facility] Last Admin: 11/17/16 21:58 Dose: 25 mg Ondansetron HCl (Zofran Inj) 4 mg IVP Q6 PRN PRN Reason: Nausea/Vomiting Rivaroxaban (Xarelto) 15 mg PO QD5 [facility] PRN Reason: Protocol Last Admin: 11/17/16 16:42 Dose: 15 mg - Labs Labs: 11/13/16 07:37 Assessment and Plan (1) Abnormal finding on urinalysis Status: Acute (2) Hip pain Status: Chronic (3) Hypertension Status: Chronic (4) Weakness Status: Acute (5) Aortic stenosis Status: Chronic (6) Atrial fibrillation Status: Chronic (7) Osteoarthritis Status: Chronic Attending/Attestation - Attestation I have personally seen and examined this patient.: Yes I have fully participated in the care of the patient.: Yes I have reviewed all pertinent clinical information, including history, physical exam and plan: Yes
[2016-11-16] MEDS: Digoxin 250 mcg (0.25 mg) Tab PO SCH (09:04)
--- NOTE | 2016-11-16 12:34 | CP.PCM.PN ---
<Kostas Ndiaye - Last Filed: 11/16/16 12:40> Subjective - Date & Time of Evaluation Date of Evaluation: 11/16/16 Time of Evaluation: 12:32 - Subjective Subjective: Patient sen and examined at bed side no acute event overnight afebrile, she deneid nasuea,vomits diarrhea, chest pain palpitation SOB, dysuria, hematuria . Bowel movements regular. Objective - Vital Signs/Intake and Output Vital Signs (last 24 hours): Temp Pulse Resp BP Pulse Ox 97.2 F L 80 20 101/52 L 99 11/14/16 16:11 11/16/16 09:05 11/16/16 07:30 11/16/16 09:05 11/16/16 07:30 - Medications Medications: Current Medications Acetaminophen (Tylenol 325mg Tab) 650 mg PO Q6 PRN PRN Reason: Pain, Mild (1-3) Last Admin: 11/14/16 21:28 Dose: 650 mg Amlodipine Besylate (Norvasc) 10 mg PO DAILY [facility] Last Admin: 11/16/16 09:04 Dose: 10 mg Digoxin (Lanoxin) 0.25 mg PO DAILY [facility] Last Admin: 11/16/16 09:04 Dose: 0.25 mg Famotidine (Pepcid) 40 mg PO HS [facility] Last Admin: 11/15/16 21:13 Dose: 40 mg Furosemide (Lasix) 20 mg PO DAILY [facility] Last Admin: 11/16/16 09:04 Dose: 20 mg Ceftriaxone Sodium 1 gm/ (Sodium Chloride) 100 mls @ 100 mls/hr IVPB DAILY@ 1700 [facility] Last Admin: 11/15/16 16:50 Dose: 100 mls/hr Losartan Potassium (Cozaar) 100 mg PO DAILY [facility] Last Admin: 11/16/16 09:05 Dose: 100 mg Metoprolol Tartrate (Lopressor) 25 mg PO Q12 [facility] Last Admin: 11/16/16 09:03 Dose: 25 mg Ondansetron HCl (Zofran Inj) 4 mg IVP Q6 PRN PRN Reason: Nausea/Vomiting Rivaroxaban (Xarelto) 15 mg PO QD5 [facility] PRN Reason: Protocol Last Admin: 11/15/16 16:50 Dose: 15 mg - Labs Labs: 11/13/16 07:37 - Head Exam Additional comments: ATRAUMATIC, NORMOCEPHALIC - ENT Exam ENT Exam: Normal Exam - Respiratory Exam Respiratory Exam: Clear to Ausculation Bilateral. absent: Rales, Wheezes, Stridor - Cardiovascular Exam Cardiovascular Exam: Irregular Rhythm, REGULAR RHYTHM, +S1, +S2, Murmur Additional comments: 3/ systolic murmur - GI/Abdominal Exam GI & Abdominal Exam: Soft, Normal Bowel Sounds. absent: Tenderness - Extremities Exam Extremities Exam: Normal Inspection. absent: Calf Tenderness, Pedal Edema - Neurological Exam Neurological Exam: Alert, Awake, Oriented x3 Assessment and Plan - Assessment and Plan (Free Text) Plan: 81 yo , f, admitted for acute pyelonephritis and Sepsis, had Acute CHF with afib and RVR during hospitalization resolved. In TCU for physical therapy Assessment/Plan 1. Atrial Fibrillation with RVR Controlled Potentiating CHF Cardiology consult, Dr. Benjamin, appreciated Digoxin, Xarelto 2. Acute CHF diastolic Echo 11/05/16 Severe aortic stenosis. EF: 55-60 % Pulmonology consult, Dr. Bazan appreciated. Unlikely PE 11/09/16 CXR: R>L nonspecific interstitial changes Lasix 20mg PO daily Daily weights 3. UTI with Bacteremia, E. Coli Resolved Ceftriaxone IV daily until Friday11/18/16 Anticipated discharge Friday11/18/16 cipro 500 mg Po BID for 5 days 4. HTN, controlled Continue Metoprolol Succinate 50mg po daily Continue Amlodipine 10mg po daily Continue Losartan 100mg po daily 5. DVT prophylaxis Xarelto 20 mg PO daily <Lila Harmon - Last Filed: 11/17/16 08:55> Objective - Vital Signs/Intake and Output Vital Signs (last 24 hours): Temp Pulse Resp BP Pulse Ox 97.9 F 62 20 145/75 99 11/17/16 08:29 11/17/16 08:36 11/17/16 08:29 11/17/16 08:36 11/17/16 08:29 - Medications Medications: Current Medications Acetaminophen (Tylenol 325mg Tab) 650 mg PO Q6 PRN PRN Reason: Pain, Mild (1-3) Last Admin: 11/14/16 21:28 Dose: 650 mg Amlodipine Besylate (Norvasc) 10 mg PO DAILY [facility] Last Admin: 11/17/16 08:36 Dose: 10 mg Digoxin (Lanoxin) 0.25 mg PO DAILY [facility] Last Admin: 11/17/16 08:35 Dose: 0.25 mg Famotidine (Pepcid) 40 mg PO HS [facility] Last Admin: 11/16/16 21:10 Dose: 40 mg Furosemide (Lasix) 20 mg PO DAILY [facility] Last Admin: 11/17/16 08:34 Dose: 20 mg Ceftriaxone Sodium 1 gm/ (Sodium Chloride) 100 mls @ 100 mls/hr IVPB DAILY@ 1700 [facility] Last Admin: 11/16/16 16:40 Dose: 100 mls/hr Losartan Potassium (Cozaar) 100 mg PO DAILY [facility] Last Admin: 11/17/16 08:34 Dose: 100 mg Metoprolol Tartrate (Lopressor) 25 mg PO Q12 [facility] Last Admin: 11/17/16 08:34 Dose: 25 mg Ondansetron HCl (Zofran Inj) 4 mg IVP Q6 PRN PRN Reason: Nausea/Vomiting Rivaroxaban (Xarelto) 15 mg PO QD5 [facility] PRN Reason: Protocol Last Admin: 11/16/16 16:46 Dose: 15 mg - Labs Labs: 11/13/16 07:37 - Skin Additional comments: ATTESTATION NOTE ATTENDING NOT PATIENT SEEN AND EXAMINED. CASE DISCUSSED WITH RESIDENT. AGREE WITH PLAN.
[2016-11-17] MEDS: Digoxin 250 mcg (0.25 mg) Tab PO SCH (08:35)
--- NOTE | 2016-11-17 16:14 | CP.PCM.PN ---
<Kostas Ndiaye - Last Filed: 11/17/16 16:19> Subjective - Date & Time of Evaluation Date of Evaluation: 11/17/16 Time of Evaluation: 13:00 - Subjective Subjective: Patient seen and examined at bed side no complain, no acute event overnight anticipatory discharge tomorrow . Doing well improving strength and ROM balance with physical therapy . Objective - Vital Signs/Intake and Output Vital Signs (last 24 hours): Temp Pulse Resp BP Pulse Ox 97.9 F 62 20 145/75 99 11/17/16 08:29 11/17/16 08:36 11/17/16 08:29 11/17/16 08:36 11/17/16 08:29 - Medications Medications: Current Medications Acetaminophen (Tylenol 325mg Tab) 650 mg PO Q6 PRN PRN Reason: Pain, Mild (1-3) Last Admin: 11/14/16 21:28 Dose: 650 mg Amlodipine Besylate (Norvasc) 10 mg PO DAILY [facility] Last Admin: 11/17/16 08:36 Dose: 10 mg Digoxin (Lanoxin) 0.25 mg PO DAILY [facility] Last Admin: 11/17/16 08:35 Dose: 0.25 mg Famotidine (Pepcid) 40 mg PO HS [facility] Last Admin: 11/16/16 21:10 Dose: 40 mg Furosemide (Lasix) 20 mg PO DAILY [facility] Last Admin: 11/17/16 08:34 Dose: 20 mg Ceftriaxone Sodium 1 gm/ (Sodium Chloride) 100 mls @ 100 mls/hr IVPB DAILY@ 1700 [facility] Last Admin: 11/16/16 16:40 Dose: 100 mls/hr Losartan Potassium (Cozaar) 100 mg PO DAILY [facility] Last Admin: 11/17/16 08:34 Dose: 100 mg Metoprolol Tartrate (Lopressor) 25 mg PO Q12 [facility] Last Admin: 11/17/16 08:34 Dose: 25 mg Ondansetron HCl (Zofran Inj) 4 mg IVP Q6 PRN PRN Reason: Nausea/Vomiting Rivaroxaban (Xarelto) 15 mg PO QD5 [facility] PRN Reason: Protocol Last Admin: 11/16/16 16:46 Dose: 15 mg - Labs Labs: 11/13/16 07:37 - Head Exam Additional comments: ATRAUMATIC, NORMOCEPHALIC - ENT Exam ENT Exam: Normal Exam - Respiratory Exam Respiratory Exam: Clear to Ausculation Bilateral. absent: Rales, Wheezes, Stridor - Cardiovascular Exam Cardiovascular Exam: Irregular Rhythm, REGULAR RHYTHM, +S1, +S2, Murmur Additional comments: 3 systolic murmur - GI/Abdominal Exam GI & Abdominal Exam: Soft, Normal Bowel Sounds. absent: Tenderness - Extremities Exam Extremities Exam: Normal Inspection. absent: Calf Tenderness, Pedal Edema - Neurological Exam Neurological Exam: Alert, Awake, Oriented x3 Assessment and Plan - Assessment and Plan (Free Text) Plan: 81 yo , f, admitted for IV ABX due to acute pyelonephritis and Sepsis, and for physical therapy Assessment/Plan 1. UTI with Bacteremia, E. Coli Resolved Ceftriaxone IV daily until Friday11/18/16 Anticipated discharge Friday11/18/16 cipro 500 mg Po BID for 5 days 2. Acute CHF diastolic Echo 11/05/16 Severe aortic stenosis. EF: 55-60 % Pulmonology consult, Dr. Bazan appreciated. Unlikely PE 11/09/16 CXR: R>L nonspecific interstitial changes Lasix 20mg PO daily 3. Atrial Fibrillation with RVR Controlled Digoxin, Xarelto and metoprolol 4. HTN, controlled Continue Metoprolol Succinate 50mg po daily Continue Amlodipine 10mg po daily Continue Losartan 100mg po daily 5. DVT prophylaxis Xarelto 20 mg PO daily <Lila Harmon - Last Filed: 11/18/16 08:25> Objective - Vital Signs/Intake and Output Vital Signs (last 24 hours): Temp Pulse Resp BP Pulse Ox 98.2 F 61 20 129/61 94 L 11/17/16 21:13 11/17/16 21:58 11/17/16 21:13 11/17/16 21:58 11/17/16 21:13 - Medications Medications: Current Medications Acetaminophen (Tylenol 325mg Tab) 650 mg PO Q6 PRN PRN Reason: Pain, Mild (1-3) Last Admin: 11/14/16 21:28 Dose: 650 mg Amlodipine Besylate (Norvasc) 10 mg PO DAILY [facility] Last Admin: 11/17/16 08:36 Dose: 10 mg Digoxin (Lanoxin) 0.25 mg PO DAILY [facility] Last Admin: 11/17/16 08:35 Dose: 0.25 mg Famotidine (Pepcid) 40 mg PO HS [facility] Last Admin: 11/17/16 21:59 Dose: 40 mg Furosemide (Lasix) 20 mg PO DAILY [facility] Last Admin: 11/17/16 08:34 Dose: 20 mg Ceftriaxone Sodium 1 gm/ (Sodium Chloride) 100 mls @ 100 mls/hr IVPB DAILY@ 1700 [facility] Last Admin: 11/17/16 16:42 Dose: 100 mls/hr Losartan Potassium (Cozaar) 100 mg PO DAILY [facility] Last Admin: 11/17/16 08:34 Dose: 100 mg Metoprolol Tartrate (Lopressor) 25 mg PO Q12 [facility] Last Admin: 11/17/16 21:58 Dose: 25 mg Ondansetron HCl (Zofran Inj) 4 mg IVP Q6 PRN PRN Reason: Nausea/Vomiting Rivaroxaban (Xarelto) 15 mg PO QD5 [facility] PRN Reason: Protocol Last Admin: 11/17/16 16:42 Dose: 15 mg - Labs Labs: 11/13/16 07:37 - Skin Additional comments: Attestation statement Attending note Case discussed with resident. Agree with plan.
--- NOTE | 2016-11-18 07:03 | CP.PCM.PN ---
Subjective - Date & Time of Evaluation Date of Evaluation: 11/18/16 Time of Evaluation: 06:45 - Subjective Subjective: no new complaiys notes from weekend reviewed to go home to day on cipro Objective - Vital Signs/Intake and Output Vital Signs (last 24 hours): Temp Pulse Resp BP Pulse Ox 98.2 F 61 20 129/61 94 L 11/17/16 21:13 11/17/16 21:58 11/17/16 21:13 11/17/16 21:58 11/17/16 21:13 - Medications Medications: Current Medications Acetaminophen (Tylenol 325mg Tab) 650 mg PO Q6 PRN PRN Reason: Pain, Mild (1-3) Last Admin: 11/14/16 21:28 Dose: 650 mg Amlodipine Besylate (Norvasc) 10 mg PO DAILY [facility] Last Admin: 11/17/16 08:36 Dose: 10 mg Digoxin (Lanoxin) 0.25 mg PO DAILY [facility] Last Admin: 11/17/16 08:35 Dose: 0.25 mg Famotidine (Pepcid) 40 mg PO HS [facility] Last Admin: 11/17/16 21:59 Dose: 40 mg Furosemide (Lasix) 20 mg PO DAILY [facility] Last Admin: 11/17/16 08:34 Dose: 20 mg Ceftriaxone Sodium 1 gm/ (Sodium Chloride) 100 mls @ 100 mls/hr IVPB DAILY@ 1700 [facility] Last Admin: 11/17/16 16:42 Dose: 100 mls/hr Losartan Potassium (Cozaar) 100 mg PO DAILY [facility] Last Admin: 11/17/16 08:34 Dose: 100 mg Metoprolol Tartrate (Lopressor) 25 mg PO Q12 [facility] Last Admin: 11/17/16 21:58 Dose: 25 mg Ondansetron HCl (Zofran Inj) 4 mg IVP Q6 PRN PRN Reason: Nausea/Vomiting Rivaroxaban (Xarelto) 15 mg PO QD5 [facility] PRN Reason: Protocol Last Admin: 11/17/16 16:42 Dose: 15 mg - Labs Labs: 11/13/16 07:37 - Constitutional Appears: No Acute Distress - Head Exam Head Exam: NORMAL INSPECTION - ENT Exam ENT Exam: Mucous Membranes Moist - Neck Exam Neck Exam: Full ROM - Respiratory Exam Respiratory Exam: Decreased Breath Sounds, NORMAL BREATHING PATTERN - Cardiovascular Exam Cardiovascular Exam: Irregular Rhythm - GI/Abdominal Exam GI & Abdominal Exam: Normal Bowel Sounds - Extremities Exam Extremities Exam: absent: Pedal Edema, Tenderness - Neurological Exam Neurological Exam: Alert, Awake - Psychiatric Exam Psychiatric exam: Normal Affect - Skin Skin Exam: Dry, Intact Assessment and Plan (1) Abnormal finding on urinalysis Status: Acute (2) Hip pain Status: Chronic (3) Hypertension Status: Chronic (4) Weakness Status: Acute (5) Aortic stenosis Status: Chronic (6) Atrial fibrillation Status: Chronic (7) Osteoarthritis Status: Chronic (8) UTI (urinary tract infection) Status: Acute - Assessment and Plan (Free Text) Assessment: see notes from weekend to go home today with cipro for 5 days script written
[2016-11-18] MEDS: Digoxin 250 mcg (0.25 mg) Tab PO SCH (08:25)
[2016-11-18 08:26] VITALS: PULSE 60
--- NOTE | 2016-11-18 12:06 | CP.PCM.DIS ---
<Kal Hammer - Last Filed: 11/18/16 12:03> Provider - Provider Date of Admission: 11/11/16 15:53 Attending physician: Tylor Earl MD Time Spent in preparation of Discharge (in minutes): 30 Diagnosis - Discharge Diagnosis (1) Pyelonephritis Status: Acute Hospital Course - Lab Results Lab Results: Most Recent Lab Values Sodium 142 mmol/l (132-148) 11/13/16 07:37 Potassium 4.8 MMOL/L (3.6-5.0) 11/13/16 07:37 Chloride 103 mmol/L (98-107) 11/13/16 07:37 Carbon Dioxide 27 mmol/L (22-30) 11/13/16 07:37 Anion Gap 17 (10-20) 11/13/16 07:37 BUN 27 mg/dl (7-17) H 11/13/16 07:37 Creatinine 0.6 mg/dL (0.7-1.2) L 11/13/16 07:37 Est GFR ( Amer) > 60 11/13/16 07:37 Est GFR (Non-Af Amer) > 60 11/13/16 07:37 Random Glucose 88 mg/dL (65-105) 11/13/16 07:37 Calcium 9.4 mg/dL (8.4-10.2) 11/13/16 07:37 - Hospital Course Hospital Course: The patient is a 81 y/o woman admitted for IV ABX due to acute pyelonephritis and Sepsis, and for physical therapy. The patient continued IV ceftriaxone while receiving physical therapy for resolved pyelonephritis and sepsis. The patient was seen by ID for pyelonephritis and sepsis and continued IV antibiotic for 7 days. The patient was seen by cardiology for afib and is on digoxin and xarelto. The patient was seen by pulmonary and was found to be stable. The patient will be discharged on ciprofloxacin 500 mg PO BID for 5 days. The patient will be taken home by family member. Patient prefers rollater for ambulation. The patient is to follow up with Dr. Earl. The patient has improved and has no complaints. The patient has been seen, examined , and deemed medically fit with no contraindication for discharge home with family. - Date & Time of H&P Date of H&P: 03/28/17 Time of H&P: 09:07 Discharge Exam - Head Exam Head Exam: NORMAL INSPECTION - Eye Exam Eye Exam: EOMI Pupil Exam: PERRL - ENT Exam ENT Exam: Mucous Membranes Moist - Respiratory Exam Respiratory Exam: Clear to PA & Lateral, NORMAL BREATHING PATTERN. absent: Accessory Muscle Use, Chest Wall Tenderness, Decreased Breath Sounds, Prolonged Expiratory Phase, Rales, Rhonchi, Wheezes, Respiratory Distress, Stridor - Cardiovascular Exam Cardiovascular Exam: Irregular Rhythm, Systolic Murmur. absent: Tachycardia - GI/Abdominal Exam GI & Abdominal Exam: Normal Bowel Sounds, Soft. absent: Distended, Mass, Tenderness - Extremities Exam Extremities exam: normal inspection - Neurological Exam Neurological exam: Alert - Skin Skin Exam: Dry, Intact, Warm Discharge Plan - Discharge Medications Prescriptions: Losartan [Cozaar] 100 mg PO DAILY #30 tab Digoxin [Lanoxin] 0.25 mg PO DAILY #30 tab Furosemide [Lasix] 20 mg PO DAILY #30 tab Metoprolol Tartrate [Lopressor] 25 mg PO Q12 #30 tab amLODIPine [Norvasc] 10 mg PO DAILY #30 tab Famotidine [Pepcid] 40 mg PO HS #30 tab Rivaroxaban [Xarelto] 15 mg PO QD5 #20 tab - Follow Up Plan Condition: GOOD Disposition: HOME/ ROUTINE Instructions: Acute Pyelonephritis (DC), Acute Pyelonephritis (GEN), Sepsis ( GEN), Fall Prevention (DC) Additional Instructions: discharge patient home today, followup with Dr. Tylor Earl [phone] call for appointment Clinical Quality Measures - CQM - Heart Failure Ejection Fraction: 40 % or Greater Angiotensin II Receptor Hayde Prescribed: Yes AnticoagulationTherapy for Atrial Fibrillation/Atrialflutter: Yes Will be discharged to: Home Follow Up Date (must be within 7 days from discharge): 11/22/16 Follow Up Time: 09:00 - Date & Time of Discharge Summary Date of Discharge Summary: 11/18/16 Time of Discharge Summary: 12:32 <Tylor Earl - Last Filed: 11/20/16 07:05> Provider - Provider Date of Admission: 11/11/16 15:53 Attending physician: Tylor Earl MD Hospital Course - Lab Results Lab Results: Most Recent Lab Values Sodium 142 mmol/l (132-148) 11/13/16 07:37 Potassium 4.8 MMOL/L (3.6-5.0) 11/13/16 07:37 Chloride 103 mmol/L (98-107) 11/13/16 07:37 Carbon Dioxide 27 mmol/L (22-30) 11/13/16 07:37 Anion Gap 17 (10-20) 11/13/16 07:37 BUN 27 mg/dl (7-17) H 11/13/16 07:37 Creatinine 0.6 mg/dL (0.7-1.2) L 11/13/16 07:37 Est GFR ( Amer) > 60 11/13/16 07:37 Est GFR (Non-Af Amer) > 60 11/13/16 07:37 Random Glucose 88 mg/dL (65-105) 11/13/16 07:37 Calcium 9.4 mg/dL (8.4-10.2) 11/13/16 07:37 Attending/Attestation - Attestation I have personally seen and examined this patient.: Yes I have fully participated in the care of the patient.: Yes I have reviewed all pertinent clinical information, including history, physical exam and plan: Yes
[2016-11-18 16:44] VITALS: BP 128/71; PULSE 57; TEMP 98.1; O2SAT 96
== END 2016-11-18 19:10 | disposition home or self-care (01) | DRG 871 ==
LOC: H.TCU 15:53
PROVIDERS: ADMIT Family Medicine; ATTEND Family Medicine
PROC: F07L6ZZ Therapeutic Exercise Treatment of Musculoskeletal System - Lower Back / Lower Extremity (ICD-10-PCS; principal; 2016-11-11)
PROC: F08Z4FZ Home Management Treatment using Assistive, Adaptive, Supportive or Protective Equipment (ICD-10-PCS; 2016-11-11)
DX: A41.9 Sepsis, unspecified organism (principal); I50.31 Acute diastolic (congestive) heart failure; I48.91 Unspecified atrial fibrillation; N39.0 Urinary tract infection, site not specified; N10 Acute pyelonephritis; I35.0 Nonrheumatic aortic (valve) stenosis; I11.0 Hypertensive heart disease with heart failure; Z79.01 Long term (current) use of anticoagulants; E78.00 Pure hypercholesterolemia, unspecified; Z87.01 Personal history of pneumonia (recurrent); Z86.73 Personal history of transient ischemic attack (TIA), and cerebral infarction without residual deficits; M19.90 Unspecified osteoarthritis, unspecified site; K64.9 Unspecified hemorrhoids; R26.81 Unsteadiness on feet; Z91.81 History of falling; Z96.643 Presence of artificial hip joint, bilateral

== ENCOUNTER 2018-05-29 05:33 | Inpatient (IN) | payer MEDICARE ==
[2018-05-29 05:33] VITALS: PULSE 78; BMI 25.0
--- NOTE | 2018-05-29 06:28 | ED PDOC ---
Lower Extremity Pain/Injury Time Seen by Provider: 05/29/18 05:44 Chief Complaint (Nursing): Lower Extremity Problem/Injury Chief Complaint (Provider): right groin pain History Per: Patient, Family (son) History/Exam Limitations: language barrier Onset/Duration Of Symptoms: Hrs (x2) Current Symptoms Are (Timing): Still Present Additional Complaint(s): Jo-Ann Turner is an 82 year old female, with a past medical history of arthritis and HTN, who was brought to the emergency department by EMS for evaluation of right groin pain onset x2 hrs prior to arrival. Patient reports she woke up having severe right groin pain and states she is unable to bear weight in leg. Patient also reports severe pain when moving her right lower extremity. She has some left knee swelling but it's chronic in nature. She denies any fever, chills, and does not recall having any fall or trauma. Son helped provide history because patient is an [place] speaker. PMD: Tylor Dias Top Carrier: Dr. Rambo Greene Past Medical History Reviewed: Historical Data, Nursing Documentation, Vital Signs Vital Signs: Last Vital Signs Temp 98.1 F 05/29/18 05:45 Pulse 67 05/29/18 05:45 Resp 18 05/29/18 05:45 BP 149/71 05/29/18 05:45 Pulse Ox 98 05/29/18 05:45 - Medical History PMH: Anemia, Arthritis, CVA (13yrs ago), Fractures (Rt. Hip), HTN, Hypercholesterolemia, Hyperlipidemia, Pneumonia, TIA Denies: HIV, Pulmonary Embolism, Chronic Kidney Disease - Surgical History Surgical History: No Surg Hx - Family History Family History: States: Unknown Family Hx - Social History Current smoker - smoking cessation education provided: No Alcohol: None Drugs: Denies - Home Medications Home Medications: Ambulatory Orders Medication Instructions Recorded Calcium/Niacin [Niacin 64 mg-500 1 tab PO DAILY #0 tab 09/05/15 mg] Acetaminophen [Tylenol 325mg tab] 650 mg PO Q6 PRN #0 tab 11/11/16 Digoxin [Lanoxin] 0.25 mg PO DAILY #30 tab 11/18/16 Famotidine [Pepcid] 40 mg PO HS #30 tab 11/18/16 Furosemide [Lasix] 20 mg PO DAILY #30 tab 11/18/16 Losartan [Cozaar] 100 mg PO DAILY #30 tab 11/18/16 Metoprolol Tartrate [Lopressor] 25 mg PO Q12 #30 tab 11/18/16 Rivaroxaban [Xarelto] 15 mg PO QD5 #20 tab 11/18/16 amLODIPine [Norvasc] 10 mg PO DAILY #30 tab 11/18/16 - Allergies Allergies/Adverse Reactions: Allergies Allergy/AdvReac Type Severity Reaction Status Date / Time No Known Allergies Allergy Verified 05/29/18 05:44 Review of Systems ROS Statement: Except As Marked, All Systems Reviewed And Found Negative Constitutional: Negative for: Fever, Chills Musculoskeletal: Positive for: Other (right groin pain) Physical Exam - Reviewed Nursing Documentation Reviewed: Yes Vital Signs Reviewed: Yes - Physical Exam Appears: Positive for: No Acute Distress Head Exam: Positive for: ATRAUMATIC, NORMAL INSPECTION, NORMOCEPHALIC Skin: Positive for: Normal Color, Warm, Dry Eye Exam: Positive for: Normal appearance, EOMI, PERRL Neck: Positive for: Painless ROM Cardiovascular/Chest: Positive for: Regular Rate, Rhythm. Negative for: Murmur Respiratory: Positive for: Normal Breath Sounds. Negative for: Respiratory Distress Gastrointestinal/Abdominal: Positive for: Normal Exam, Soft. Negative for: Tenderness Back: Positive for: Normal Inspection. Negative for: L CVA Tenderness, Vertebral Tenderness Extremity: Positive for: Other (Pain in right inguinal region on palpation. Pain on active leg raise of right lower extremity and passive leg raise of right lower extremity at 30). Negative for: Tenderness (over the right hip joint.), Deformity (or external rotation of the right lower extremity) Neurologic/Psych: Positive for: Alert, Oriented - ECG O2 Sat by Pulse Oximetry: 98 (RA) Pulse Ox Interpretation: Normal Medical Decision Making Medical Decision Making: Time: 05:44 Initial Impression: 82 y/o [place] female with right inguinal pain, presentation highly suspicious for possible occult pelvic fracture. Initial Plan: --Pelvis w/o PO or IV contrast [CT] --CMP --CBC w/ differential --Toradol 15 mg IV --Urinalysis --Reevaluation 07:00 -Patient will be signed out to Dr. Hampton, pending CT and reevaluation. Disposition - Disposition Disposition: Transfer of Care Disposition Time: 07:00 Condition: STABLE
[2018-05-29 06:56] LABS: BASO # 0.1 K/uL (0.0-0.2); BASO % 1.5 % (0.0-2.0); EOS # 0.1 K/uL (0.0-0.7); EOS % 2.4 % (0.0-4.0); HEMOGLOBIN 12.8 g/dL (12.0-16.0); LYMPH # 1.3 K/uL (1.0-4.3); LYMPH % 23.2 % (20.0-40.0); MEAN CELL VOLUME 86.6 fl (81.0-99.0); MEAN CORPUSCULAR HEMOGLOBIN 28.9 pg (27.0-31.0); MEAN CORPUSCULAR HGB CONC 33.4 g/dL (33.0-37.0); MEAN PLATELET VOLUME 8.2 fl (7.2-11.7); MONO # 0.5 K/uL (0.0-0.8); MONO % 9.1 % (0.0-10.0); NEUT # 3.5 K/uL (1.8-7.0); NEUT % 63.8 % (50.0-75.0); RBC 4.44 Mil/uL (3.80-5.20); RED CELL DISTRIBUTION WIDTH 13.8 % (11.5-14.5); WHITE BLOOD COUNT 5.6 K/uL (4.8-10.8)
[2018-05-29 07:07] LABS: ALBUMIN 4.1 g/dL (3.5-5.0); ALT/SGPT 22 U/L (9-52); AST/SGOT 25 U/L (14-36); BLOOD UREA NITROGEN 22 mg/dl (7-17); CALCIUM 10.4 mg/dL (8.4-10.2); GFR NON-AFRICAN AMERICAN > 60
--- NOTE | 2018-05-29 10:03 | CT ---
Date of service: 05/29/2018 PROCEDURE: CT Pelvis without contrast HISTORY: right groin pain COMPARISON: None available. TECHNIQUE: Contiguous axial images of the pelvis . No intravenous or oral contrast given. Coronal and sagittal reformats generated. Radiation dose: Total exam DLP = 249.29 mGy-cm. This CT exam was performed using one or more of the following dose reduction techniques: Automated exposure control, adjustment of the mA and/or kV according to patient size, and/or use of iterative reconstruction technique. FINDINGS: BLADDER: Urinary bladder is thin walled and mildly distended without radiodense urolithiasis appreciated artifacts from right hip arthroplasty obscure imaging through the pelvis somewhat. No definitive mass. REPRODUCTIVE ORGANS: Unremarkable. VISUALIZED BOWEL: Sigmoid diverticulosis without definite diverticulitis apparent. The appendix is not identified. No definite CT pattern suggest appendicitis at this time. Bowel is limited evaluation due lack of oral contrast administration. PERITONEUM: Unremarkable, as visualized. No free fluid. No free air. LYMPH NODES: Unremarkable. No enlarged lymph nodes. BONES: No fracture or focal lesion. No evidence of loosening of right hip arthroplasty including acetabular and femoral components. Degenerative joint changes seen the left hip and bilateral sacroiliac joints as well as degenerative disease appearing advanced at the inferior lumbar spine. VASCULATURE: Aortic and iliac as well as proximal femoral atherosclerosis identified bilaterally on a moderate basis. OTHER FINDINGS: None. IMPRESSION: 1. No overt CT sign to indicate etiology of right groin pain although atherosclerotic changes seen throughout the aorto-iliofemoral system as imaged. 2. No right inguinal hernia appreciated. 3. Sigmoid diverticulosis without definite diverticulitis. The appendix not identified. No overt CT sign of appendicitis at this time. 4. Prior right hip arthroplasty device in situ without definite evidence of loosening. No fracture appreciated throughout the pelvic ring.
[2018-05-29 11:12] LABS: SQUAMOUS EPITHIAL < 1 /hpf (0-5); URINE BILIRUBIN NEGATIVE (NEGATIVE); URINE BLOOD NEGATIVE (NEGATIVE); URINE CLARITY CLEAR (Clear); URINE COLOR YELLOW (YELLOW); URINE GLUCOSE (UA) NEG (Normal); URINE LEUKOCYTE ESTERASE NEG Leu/uL (Negative); URINE PROTEIN NEGATIVE (NEGATIVE); URINE UROBILINOGEN 0.2-1.0 mg/dL (0.2-1.0)
--- NOTE | 2018-05-29 11:38 | ED PDOC ---
- Laboratory Results Result Diagrams: 05/29/18 06:47 05/29/18 06:47 - ECG O2 Sat by Pulse Oximetry: 98 Disposition - Clinical Impression Clinical Impression: Hip pain, Gait disturbance - POA Present On Arrival: None - Disposition Disposition: Hospitalized as Observation Patient Disposition Time: 11:38 Condition: FAIR Forms: [facility] (Bulgarian)
--- NOTE | 2018-05-29 17:52 | CP.PCM.CON ---
History of Present Illness - History of Present Illness History of Present Illness: Podiatry consult note for Dr. Lizarraga, 82 Y/O female patient with PMH of HTN, Fractures (Rt. Hip), HTN, Hypercholesterolemia, Hyperlipidemia, Pneumonia, TIA seen and evaluated in the bedside for L LE swelling and left foot lesion. Patient is in no acute distress, AAO x3. Patient couldn't provide full history so she asked to contact her son. Her son Angel was contacted. Patient states that his mother used to follow up with Dr. Greene and when he was in vacation she followed up with dr. Arredondo. Hi states that about 2 months ago his mother developed an ulcer under her left she had an ulcer under her left great toe and also an infection in her left leg. He states that her leg swelling and the ulcer got improved after an Abx course that ended 2 days ago. He states that She is having pain at the bottom of her left foot at the 1st toe level and she can't ambulate on that foot. She states that also her left leg got swallen 2 days ago. Patient and her son denies any other pedal complaint. Patient and her son denies any recent F/N/V/C or SOB. PMH: HTN, Fractures (Rt. Hip), HTN, Hypercholesterolemia, Hyperlipidemia, Pneu monia, TIA SHx: None Allergies: NKDA Social Hx: Denies smoking EtOH or illicit drug use Review of Systems - Review of Systems Review of Systems: As per HPI Past Patient History - Infectious Disease Hx of Infectious Diseases: None - Past Medical History & Family History Past Medical History?: Yes - Past Social History Alcohol: None Drugs: Denies - CARDIAC Hx Hypercholesterolemia: Yes Hx Hypertension: Yes - PULMONARY Hx Pneumonia: Yes Hx Pulmonary Embolism: No - NEUROLOGICAL Hx Transient Ischemic Attacks (TIA): Yes - HEENT Hx HEENT Problems: No - RENAL Hx Chronic Kidney Disease: No - ENDOCRINE/METABOLIC Hx Endocrine Disorders: No - HEMATOLOGICAL/ONCOLOGICAL Hx Anemia: Yes Hx Human Immunodeficiency Virus (HIV): No - INTEGUMENTARY Hx Dermatological Problems: No - MUSCULOSKELETAL/RHEUMATOLOGICAL Hx Arthritis: Yes Hx Fractures: Yes (Rt. Hip) - GASTROINTESTINAL Hx Gastrointestinal Disorders: Yes Hx Hemorrhoids: Yes (and were noted on this admission) Hx Nausea: Yes (prior to this admission) Hx Vomiting: Yes (prior to this admission for three days) - GENITOURINARY/GYNECOLOGICAL Hx Genitourinary Disorders: No - PSYCHIATRIC Hx Psychophysiologic Disorder: No Hx Substance Use: No - SURGICAL HISTORY Hx Surgeries: Yes Hx Orthopedic Surgery: Yes (right hip surgery) - ANESTHESIA Hx Anesthesia: Yes Hx Anesthesia Reactions: No Hx Malignant Hyperthermia: No Meds Allergies/Adverse Reactions: Allergies Allergy/AdvReac Type Severity Reaction Status Date / Time No Known Allergies Allergy Verified 05/29/18 05:44 - Medications Medications: Current Medications Amlodipine Besylate (Norvasc) 10 mg PO DAILY BASHIR Famotidine (Pepcid) 20 mg PO HS BASHIR Furosemide (Lasix) 20 mg PO DAILY BASHIR Ketorolac Tromethamine (Toradol) 15 mg IVP Q6 PRN PRN Reason: Pain, moderate (4-7) Losartan Potassium (Cozaar) 100 mg PO DAILY BASHIR Rivaroxaban (Xarelto) 15 mg PO DAILY BASHIR; Protocol Physical Exam - Constitutional Appears: Well, Non-toxic - Head Exam Head Exam: ATRAUMATIC, NORMOCEPHALIC - Extremities Exam Additional comments: B/L LE Focused exam: Vasc: DP/PT faintly palpable1/4 b/l. Cap refill < 3 sec in all digits. Temp gradient warm to cool b/l. Non pitting edema extending up to the thigh on the left side. Mild erythema noted on the left leg. Erythema noted also at the 1st Left MPJ. Neuro: Gross and protective sensations intact b/l. Derm: No open lesions. a small dimple at the site of a previuos ulcer noted at the level of the 1st MPJ on the left side. A hyperkeratotik lesion noted in the same place. Erythema noted also at the 1st Left MPJ. Mild erythema noted on the left leg. Toe nails dystrophic, thickened and discolored to all digits. MSK: pain on palpating the of the left 1st MPJ. Cracking felt at the left 1st MPJ. Muscle power intact 5/5 in all groups. diffuse arthritic changes in all groups. B/L HAV. r foot noted larger than the left foot. B/L hammer toes 2-5. - Neurological Exam Neurological exam: Alert, Oriented x3 - Psychiatric Exam Psychiatric exam: Normal Affect, Normal Mood Results - Vital Signs Recent Vital Signs: Last Vital Signs Temp 98.7 F 05/29/18 13:37 Pulse 69 05/29/18 13:37 Resp 18 05/29/18 13:37 BP 149/76 05/29/18 13:37 Pulse Ox 97 05/29/18 13:37 - Labs Result Diagrams: 05/29/18 06:47 05/29/18 06:47 Labs: Laboratory Results - last 24 hr 05/29/18 05/29/18 05/29/18 06:47 06:47 10:30 WBC 5.6 RBC 4.44 Hgb 12.8 D Hct 38.4 MCV 86.6 MCH 28.9 MCHC 33.4 RDW 13.8 Plt Count 265 MPV 8.2 Neut % (Auto) 63.8 Lymph % (Auto) 23.2 [place] % (Auto) 9.1 Eos % (Auto) 2.4 Baso % (Auto) 1.5 Neut # (Auto) 3.5 Lymph # (Auto) 1.3 [place] # (Auto) 0.5 Eos # (Auto) 0.1 Baso # (Auto) 0.1 Sodium 142 Potassium 3.8 Chloride 109 H Carbon Dioxide 28 Anion Gap 9 L BUN 22 H Creatinine 0.6 L Est GFR ( Amer) > 60 Est GFR (Non-Af Amer) > 60 Random Glucose 93 Calcium 10.4 H Total Bilirubin 0.8 AST 25 ALT 22 Alkaline Phosphatase 122 Total Protein 8.0 Albumin 4.1 Globulin 4.0 H Albumin/Globulin Ratio 1.0 Urine Color Yellow Urine Clarity Clear Urine pH 6.0 Ur Specific [place] 1.016 Urine Protein Negative Urine Glucose (UA) Neg Urine Ketones Negative Urine Blood Negative Urine Nitrate Negative Urine Bilirubin Negative Urine Urobilinogen 0.2-1.0 Ur Leukocyte Esterase Neg Urine RBC (Auto) 2 Urine Microscopic WBC 4 Ur Squamous Epith Cells < 1 Assessment & Plan - Assessment and Plan (Free Text) Assessment: 82 y/o F patient seen and evaluated in the bed side for left submet 1 lesion and left LE swelling Plan: Patient seen and evaluated in the bedside. Plan discussed in details with attending Dr. Greene. Chart labs and vitals reviewqed; Afebrile. WBCs 5.6 Ordred L foot 3 views X-ray. Ordered Lfet venous duplex. Ordered L surgical shoe Patient to ambulate in the left surgical shoe. Podiatry will follow up the patient while in house. Thanks for consulting podiatry service. - Date & Time Date: 05/29/18 Time: 16:54
--- NOTE | 2018-05-29 18:59 | US ---
Date of service: 05/29/2018 PROCEDURE: Bilateral lower extremity venous duplex Doppler. HISTORY: R/O DVT COMPARISON: Not available TECHNIQUE: Bilateral common femoral, superficial femoral, popliteal and posterior tibial veins were evaluated. Flow was assessed with color Doppler, compressibility, assessment of phasic flow and augmentation response. FINDINGS: COMMON FEMORAL VEIN: Right CFV: Unremarkable. Left CFV: Unremarkable. SUPERFICIAL FEMORAL VEIN: Right SFV: Unremarkable. Left SFV: Unremarkable. POPLITEAL VEIN: Right Popliteal: Unremarkable. Left Popliteal: Unremarkable. POSTERIOR TIBIAL VEIN: Right PTV: Unremarkable. Left PTV: Unremarkable. OTHER FINDINGS: Right popliteal cyst, 4.6 x 3.3 x 1.9 cm. Incidentally noted left inguinal lymph node, 2.6 cm greatest dimension. IMPRESSION: No evidence of lower extremity deep venous thrombosis bilaterally. Right popliteal cyst.
--- NOTE | 2018-05-29 23:21 | HP ---
HISTORY OF PRESENT ILLNESS: Ms. Turner is an 82-year-old female who was admitted via the emergency room because of severe right hip pain with difficulty ambulating on the day of admission. She has a history of arthritis and hypertension, is status post right hip surgery in the past. She did not fall, did not have any form of trauma, but developed severe right hip pain radiating to the groin and had difficulty ambulating. She, therefore, was brought to the emergency room where she was evaluated and admitted because of intractable pain. PAST MEDICAL HISTORY: She also has a past medical history of cerebrovascular accident multiple years ago, right hip fracture, status post repair, hyperlipidemia, pneumonia in the past, and anemia. FAMILY HISTORY: Not revealing. SOCIAL HISTORY: She does not drink or smoke and lives alone. REVIEW OF SYSTEMS: Essentially unremarkable. PHYSICAL EXAMINATION: GENERAL: The patient is alert, oriented, appears to be in pain because of right hip and has difficulty moving the right lower extremity. VITAL SIGNS: Blood pressure of 149/71 with a pulse of 67, respiratory rate 18. She is afebrile. O2 sat 98% on room air. SKIN: Shows fair turgor. HEENT: Pupils are equal and reactive to light and accommodation. Mouth shows fair hygiene. NECK: JVP flat. HEART: Regular. No murmurs or gallops. LUNGS: Clear. ABDOMEN: Soft, nontender. No organomegaly. EXTREMITIES: There is tenderness of right hip with poor range of motion. Left lower extremity appears unremarkable. There are also arthritis changes of all joints. CENTRAL NERVOUS SYSTEM: Grossly intact except for difficulty with ambulation. LABORATORY DATA: Remarkable for WBC of 5.6, hemoglobin 12.8, platelet count 265,000. Sodium 142, potassium 3.8, BUN 22, creatinine 0.6, serum calcium 10.4. CT scan of the pelvis is remarkable for no etiology for right groin pain, although atherosclerotic changes seen throughout aortofemoral system. No right inguinal hernia appreciated, sigmoid diverticulosis, prior right hip arthroplasty. IMPRESSION: Severe intractable right hip pain with difficulty ambulation, one has to reevaluate the right hip prosthesis; hypertension, poorly controlled; history of cerebrovascular accident in the past; history of arthritis; history of hyperlipidemia. PLAN: Orthopedic evaluation, physical therapy, and analgesics for pain. Further therapy will depend on findings. Chris Walker MD [facility] # [id number]
[2018-05-30] MEDS ORDERED: Influenza Vaccine (5 YR UP)/PF 60 MCG/0.5 ML SYR IM ONE (09:00)
--- NOTE | 2018-05-30 10:37 | CP.PCM.PN ---
Subjective - Date & Time of Evaluation Date of Evaluation: 05/30/18 Time of Evaluation: 10:37 - Subjective Subjective: FEELS BETTER OOB TO CHAIR TODAY C/O CONSTIPATION Objective - Vital Signs/Intake and Output Vital Signs (last 24 hours): Temp Pulse Resp BP Pulse Ox 98.5 F 65 20 152/60 H 95 05/30/18 08:07 05/30/18 08:14 05/30/18 08:07 05/30/18 08:15 05/30/18 08:07 - Medications Medications: Current Medications Amlodipine Besylate (Norvasc) 10 mg PO DAILY [facility] Last Admin: 05/30/18 08:14 Dose: 10 mg Famotidine (Pepcid) 20 mg PO HS [facility] Last Admin: 05/29/18 21:00 Dose: 20 mg Furosemide (Lasix) 20 mg PO DAILY [facility] Last Admin: 05/30/18 08:15 Dose: 20 mg Ketorolac Tromethamine (Toradol) 15 mg IVP Q6 PRN PRN Reason: Pain, moderate (4-7) Last Admin: 05/29/18 20:46 Dose: 15 mg Losartan Potassium (Cozaar) 100 mg PO DAILY [facility] Last Admin: 05/30/18 08:14 Dose: 100 mg Rivaroxaban (Xarelto) 15 mg PO DAILY [facility]; Protocol Last Admin: 05/30/18 08:14 Dose: 15 mg - Labs Labs: 05/29/18 06:47 05/29/18 06:47 - Constitutional Appears: No Acute Distress - Head Exam Head Exam: ATRAUMATIC, NORMAL INSPECTION, NORMOCEPHALIC - Eye Exam Eye Exam: EOMI, Normal appearance, PERRL Pupil Exam: NORMAL ACCOMODATION, PERRL - ENT Exam ENT Exam: Mucous Membranes Moist, Normal Exam - Neck Exam Neck Exam: Full ROM, Normal Inspection. absent: Lymphadenopathy - Respiratory Exam Respiratory Exam: Clear to Ausculation Bilateral, NORMAL BREATHING PATTERN - Cardiovascular Exam Cardiovascular Exam: REGULAR RHYTHM, +S1, +S2. absent: Murmur Additional comments: HOLOSYSTOLIC MURMUR - GI/Abdominal Exam GI & Abdominal Exam: Soft, Normal Bowel Sounds. absent: Tenderness - Rectal Exam Rectal Exam: NORMAL INSPECTION - Extremities Exam Extremities Exam: Full ROM, Normal Capillary Refill, Normal Inspection. absent: Joint Swelling, Pedal Edema - Back Exam Back Exam: NORMAL INSPECTION - Neurological Exam Neurological Exam: Alert, Awake, CN II-XII Intact, Normal Gait, Oriented x3 - Psychiatric Exam Psychiatric exam: Normal Affect, Normal Mood - Skin Skin Exam: Dry, Intact, Normal Color, Warm Assessment and Plan - Assessment and Plan (Free Text) Assessment: PAIN R HIP IMPROVING S/P R HIP REPLACEMENT SURGERY L INGUINAL LYMPH NODE HTN HX OF HEART MURMUR Plan: PHYSICAL RX WILL DISCUS DISPOSITION WITH SON
[2018-05-30] MEDS ORDERED: Lactulose 10 gm/15 ml Syrup PO ONE (10:57)
--- NOTE | 2018-05-30 15:05 | CP.PCM.PN ---
Subjective - Date & Time of Evaluation Date of Evaluation: 05/30/18 Time of Evaluation: 15:03 - Subjective Subjective: Podiatry progress note for Dr. Greene: 82 Y/O female patient seen and evaluated at bedside for L LE swelling and left foot lesion. Patient is in no acute distress, AAO x3. Denies N/V/F/C/SOB/CP today and has no other pedal complaints. Objective - Vital Signs/Intake and Output Vital Signs (last 24 hours): Temp Pulse Resp BP Pulse Ox 98.5 F 65 20 152/60 H 95 05/30/18 08:07 05/30/18 08:14 05/30/18 08:07 05/30/18 08:15 05/30/18 08:07 - Medications Medications: Current Medications Amlodipine Besylate (Norvasc) 10 mg PO DAILY [facility] Last Admin: 05/30/18 08:14 Dose: 10 mg Famotidine (Pepcid) 20 mg PO HS [facility] Last Admin: 05/29/18 21:00 Dose: 20 mg Furosemide (Lasix) 20 mg PO DAILY [facility] Last Admin: 05/30/18 08:15 Dose: 20 mg Ketorolac Tromethamine (Toradol) 15 mg IVP Q6 PRN PRN Reason: Pain, moderate (4-7) Last Admin: 05/29/18 20:46 Dose: 15 mg Losartan Potassium (Cozaar) 100 mg PO DAILY [facility] Last Admin: 05/30/18 08:14 Dose: 100 mg Rivaroxaban (Xarelto) 15 mg PO DAILY [facility]; Protocol Last Admin: 05/30/18 08:14 Dose: 15 mg - Labs Labs: 05/29/18 06:47 05/29/18 06:47 - Constitutional Appears: Well, Non-toxic, No Acute Distress - Extremities Exam Additional comments: B/L LE Focused exam: Vasc: DP/PT faintly palpable1/4 b/l. Cap refill < 3 sec in all digits. Temp gradient warm to cool b/l. Non pitting edema extending up to the thigh on the left side. Mild erythema noted on the left leg. Erythema noted also at the 1st Left MPJ. Neuro: Gross and protective sensations intact b/l. Derm: No open lesions. a small dimple at the site of a previuos ulcer noted at the level of the 1st MPJ on the left side. A hyperkeratotik lesion noted in the same place. Erythema noted also at the 1st Left MPJ. Mild erythema noted on the left leg. Toe nails dystrophic, thickened and discolored to all digits. MSK: pain on palpating the of the left 1st MPJ. Cracking felt at the left 1st MPJ. Muscle power intact 5/5 in all groups. diffuse arthritic changes in all groups. B/L HAV. r foot noted larger than the left foot. B/L hammer toes 2-5. - Neurological Exam Neurological Exam: Alert, Awake, Oriented x3 - Psychiatric Exam Psychiatric exam: Normal Affect, Normal Mood Assessment and Plan - Assessment and Plan (Free Text) Assessment: 82 y/o F patient seen and evaluated in the bed side for left submet 1 lesion and left LE swelling Plan: Patient seen and evaluated in the bedside. Plan discussed in details with attending Dr. Greene. Chart labs and vitals reviewqed; Afebrile. WBCs 5.6 Ordred L foot 3 views X-ray. Ordered Lfet venous duplex - negative for DVT b/l Ordered L surgical shoe Patient to ambulate in the left surgical shoe. Podiatry will follow up the patient while in house.
--- NOTE | 2018-05-31 11:07 | CP.PCM.PN ---
Subjective - Date & Time of Evaluation Date of Evaluation: 05/31/18 Time of Evaluation: 11:08 - Subjective Subjective: STILL HAVING R HIP PAIN WITH DIFFICULTY AMBULATING HAS CONSTIPAION BUT IS REFUSING LAXATIVES SON INDICATES THAT PT LIVES WITH HIM BUT HE IS UNABLE TO TAKE PT HOME TODAY BECAUSE SHE CANNOT AMBULATE AND HE IS UNABLE TO GET HER TO THE BATHROOM OR ASSIST WITH OTHER NEEDS[HE REQUESTS TRANSITIONAL CARE/PT Objective - Vital Signs/Intake and Output Vital Signs (last 24 hours): Temp Pulse Resp BP Pulse Ox 98.5 F 66 20 164/68 H 97 05/31/18 08:01 05/31/18 09:17 05/31/18 08:01 05/31/18 09:17 05/31/18 08:01 - Medications Medications: Current Medications Amlodipine Besylate (Norvasc) 10 mg PO DAILY [facility] Last Admin: 05/31/18 09:17 Dose: 10 mg Famotidine (Pepcid) 20 mg PO HS [facility] Last Admin: 05/30/18 21:41 Dose: 20 mg Furosemide (Lasix) 20 mg PO DAILY [facility] Last Admin: 05/31/18 09:17 Dose: 20 mg Ketorolac Tromethamine (Toradol) 15 mg IVP Q6 PRN PRN Reason: Pain, moderate (4-7) Last Admin: 05/30/18 22:13 Dose: 15 mg Lidocaine (Lidoderm) 1 ea TD DAILY [facility] Losartan Potassium (Cozaar) 100 mg PO DAILY [facility] Last Admin: 05/31/18 09:17 Dose: 100 mg Rivaroxaban (Xarelto) 15 mg PO DAILY [facility]; Protocol Last Admin: 05/31/18 09:18 Dose: 15 mg - Labs Labs: 05/29/18 06:47 05/29/18 06:47 - Constitutional Appears: Chronically Ill - Head Exam Head Exam: ATRAUMATIC, NORMAL INSPECTION, NORMOCEPHALIC - Eye Exam Eye Exam: EOMI, Normal appearance, PERRL Pupil Exam: NORMAL ACCOMODATION, PERRL - ENT Exam ENT Exam: Mucous Membranes Moist, Normal Exam - Neck Exam Neck Exam: Full ROM, Normal Inspection. absent: Lymphadenopathy - Respiratory Exam Respiratory Exam: Clear to Ausculation Bilateral, NORMAL BREATHING PATTERN - Cardiovascular Exam Cardiovascular Exam: REGULAR RHYTHM, +S1, +S2. absent: Murmur - GI/Abdominal Exam GI & Abdominal Exam: Soft, Normal Bowel Sounds. absent: Tenderness - Rectal Exam Rectal Exam: NORMAL INSPECTION - Extremities Exam Extremities Exam: Full ROM, Normal Capillary Refill, Normal Inspection, Tenderness. 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
[2018-05-31] MEDS: Lidocaine 5% Patch TD SCH (16:54)
--- NOTE | 2018-05-31 19:03 | RAD ---
Date of service: 05/29/2018 PROCEDURE: Left Foot Radiographs. HISTORY: ulcer submet 1, R/O OM COMPARISON: None. FINDINGS: BONES: No evidence of acute fracture. No evidence of focal cortical destruction to suggest active osteomyelitis. JOINTS: Severe degenerative changes are noted. SOFT TISSUES: Mild diffuse soft tissue edema. No evidence of soft tissue pneumatosis. OTHER FINDINGS: Moderate hallux valgus deformity. IMPRESSION: No evidence of acute fracture or active osteomyelitis.
[2018-05-31] MEDS ORDERED: Docusate-Senna 50 mg-8.6 mg Tab PO SCH (22:00)
--- NOTE | 2018-06-01 06:48 | CP.PCM.PN ---
Subjective - Date & Time of Evaluation Date of Evaluation: 06/01/18 Time of Evaluation: 08:41 - Subjective Subjective: Podiatry progress note for Dr. Greene: 82 Y/O female patient seen and evaluated at bedside for L LE swelling and left foot lesion. Patient is in no acute distress, AAO x3. Denies N/V/F/C/SOB/CP today and has no other pedal complaints. Objective - Vital Signs/Intake and Output Vital Signs (last 24 hours): Temp Pulse Resp BP Pulse Ox 97.9 F 72 18 116/61 98 06/01/18 00:08 06/01/18 00:08 06/01/18 00:08 06/01/18 00:08 06/01/18 00:08 - Medications Medications: Current Medications Amlodipine Besylate (Norvasc) 10 mg PO DAILY [facility] Last Admin: 05/31/18 09:17 Dose: 10 mg Famotidine (Pepcid) 20 mg PO HS [facility] Last Admin: 05/31/18 21:27 Dose: 20 mg Furosemide (Lasix) 20 mg PO DAILY [facility] Last Admin: 05/31/18 09:17 Dose: 20 mg Ketorolac Tromethamine (Toradol) 15 mg IVP Q6 PRN PRN Reason: Pain, moderate (4-7) Last Admin: 05/30/18 22:13 Dose: 15 mg Lidocaine (Lidoderm) 1 ea TD DAILY [facility] Last Admin: 05/31/18 16:54 Dose: 1 ea Losartan Potassium (Cozaar) 100 mg PO DAILY [facility] Last Admin: 05/31/18 09:17 Dose: 100 mg Rivaroxaban (Xarelto) 15 mg PO DAILY [facility]; Protocol Last Admin: 05/31/18 09:18 Dose: 15 mg Senna/Docusate Sodium (Senokot S 50 Mg-8.6 Mg) 2 tab PO HS [facility] Last Admin: 05/31/18 21:27 Dose: 2 tab - Labs Labs: 05/29/18 06:47 05/29/18 06:47 - Constitutional Appears: Well, Non-toxic, No Acute Distress - Head Exam Head Exam: ATRAUMATIC, NORMOCEPHALIC - Extremities Exam Additional comments: B/L LE Focused exam: Vasc: DP/PT faintly palpable1/4 b/l. Cap refill < 3 sec in all digits. Temp gradient warm to cool b/l. Non pitting edema extending up to the thigh on the left side. Mild erythema noted on the left leg. Erythema noted also at the 1st Left MPJ. Neuro: Gross and protective sensations intact b/l. Derm: No open lesions. a small dimple at the site of a previuos ulcer noted at the level of the 1st MPJ on the left side. A hyperkeratotik lesion noted in the same place. Erythema noted also at the 1st Left MPJ. Mild erythema noted on the left leg. Toe nails dystrophic, thickened and discolored to all digits. MSK: pain on palpating the of the left 1st MPJ. Cracking felt at the left 1st MPJ. Muscle power intact 5/5 in all groups. diffuse arthritic changes in all groups. B/L HAV. r foot noted larger than the left foot. B/L hammer toes 2-5. - Neurological Exam Neurological Exam: Alert, Awake, Oriented x3 - Psychiatric Exam Psychiatric exam: Normal Affect, Normal Mood Assessment and Plan - Assessment and Plan (Free Text) Assessment: 82 y/o F patient seen and evaluated in the bed side for left submet 1 lesion and left LE swelling Plan: Patient seen and evaluated in the bedside. Plan discussed in details with attending Dr. Greene. [employer] educational sign language interpreter [id number] used for translation Chart labs and vitals reviewqed; Afebrile. WBCs 5.6 (10/12) Ordred L foot 3 views X-ray;NO evidence of acute fracture or osteomyelitis. Ordered Left venous duplex - negative for DVT b/lOrdered L surgical shoe Patient to continue to ambulate in the left surgical shoe. Podiatry will follow up the patient while in house.
[2018-06-01] MEDS: Lidocaine 5% Patch TD SCH (09:08)
--- NOTE | 2018-06-01 09:09 | CP.PCM.PN ---
Subjective - Date & Time of Evaluation Date of Evaluation: 06/01/18 Time of Evaluation: 09:12 - Subjective Subjective: ACCORDING TO PT'S SON;SHE HAD PROBLEMS WITH AN INFECTED L LEG AND WAS UNDER PODIATRY CARE WITH ANTIBIOTIC THERAPY--THIS RESOLVED BEFORE SHE DEVELO-PED R HIP PAIN HE INDICATES THAT PT IS UNABLE TO AMBULATE ON HER OWN AND NEEDS HELP WITH ADLS Objective - Vital Signs/Intake and Output Vital Signs (last 24 hours): Temp Pulse Resp BP Pulse Ox 97.9 F 72 18 116/61 98 06/01/18 00:08 06/01/18 00:08 06/01/18 00:08 06/01/18 00:08 06/01/18 00:08 - Medications Medications: Current Medications Amlodipine Besylate (Norvasc) 10 mg PO DAILY [facility] Last Admin: 05/31/18 09:17 Dose: 10 mg Famotidine (Pepcid) 20 mg PO HS [facility] Last Admin: 05/31/18 21:27 Dose: 20 mg Furosemide (Lasix) 20 mg PO DAILY [facility] Last Admin: 05/31/18 09:17 Dose: 20 mg Ketorolac Tromethamine (Toradol) 15 mg IVP Q6 PRN PRN Reason: Pain, moderate (4-7) Last Admin: 05/30/18 22:13 Dose: 15 mg Lidocaine (Lidoderm) 1 ea TD DAILY [facility] Last Admin: 05/31/18 16:54 Dose: 1 ea Losartan Potassium (Cozaar) 100 mg PO DAILY [facility] Last Admin: 05/31/18 09:17 Dose: 100 mg Rivaroxaban (Xarelto) 15 mg PO DAILY [facility]; Protocol Last Admin: 05/31/18 09:18 Dose: 15 mg Senna/Docusate Sodium (Senokot S 50 Mg-8.6 Mg) 2 tab PO HS [facility] Last Admin: 05/31/18 21:27 Dose: 2 tab - Labs Labs: 05/29/18 06:47 05/29/18 06:47 - Constitutional Appears: Chronically Ill - Head Exam Head Exam: ATRAUMATIC, NORMAL INSPECTION, NORMOCEPHALIC - Eye Exam Eye Exam: EOMI, Normal appearance, PERRL Pupil Exam: NORMAL ACCOMODATION, PERRL - ENT Exam ENT Exam: Mucous Membranes Moist, Normal Exam - Neck Exam Neck Exam: Full ROM, Normal Inspection. absent: Lymphadenopathy - Respiratory Exam Respiratory Exam: Clear to Ausculation Bilateral, NORMAL BREATHING PATTERN - Cardiovascular Exam Cardiovascular Exam: REGULAR RHYTHM, +S1, +S2, Murmur - GI/Abdominal Exam GI & Abdominal Exam: Soft, Normal Bowel Sounds. absent: Tenderness - Rectal Exam Rectal Exam: NORMAL INSPECTION - Extremities Exam Extremities Exam: Full ROM, Normal Capillary Refill, Normal Inspection, Tenderness. absent: Joint Swelling, Pedal Edema Additional comments: TENDER R HIP - Back Exam Back Exam: NORMAL INSPECTION - Neurological Exam Neurological Exam: Abnormal Gait, Alert, Awake, CN II-XII Intact, Oriented x3 - Psychiatric Exam Psychiatric exam: Normal Affect, Normal Mood - Skin Skin Exam: Dry, Intact, Normal Color, Warm Assessment and Plan - Assessment and Plan (Free Text) Assessment: GENERAL DEBILITY INTRACTABLE R HIP PAIN HX OF CVA ARTHRITIS HX OF R HIP REPLACEMENT SX Plan: PUBLISHER ASSISTANT FOR TCU/SUBACUTE CARE
--- NOTE | 2018-06-01 13:00 | RAD ---
Date of service: 05/29/2018 PROCEDURE: CHEST RADIOGRAPH, 1 VIEW HISTORY: [facility] COMPARISON: 11/09/2016 FINDINGS: LUNGS: No infiltrate. Surgical sutures seen right base. PLEURA: No pneumothorax or pleural fluid seen. CARDIOVASCULAR: Normal. OSSEOUS STRUCTURES: No significant abnormalities. VISUALIZED UPPER ABDOMEN: Normal. OTHER FINDINGS: None. IMPRESSION: No active disease.
--- NOTE | 2018-06-01 14:41 | CARD ---
APPROVED REPORT Date of service: 06/01/2018 EKG Measurement Heart [id number] <Conclusion> Normal sinus rhythm Normal ECG
[2018-06-01 16:33] VITALS: BP 92/53; PULSE 73; RESP 18; TEMP 97.7; O2SAT 98
--- NOTE | 2018-06-02 08:49 | PQF ---
PROVIDER RESPONSE TEXT: HIP PAIN PROBABLY DUE TO ARTHRITIS REVIEWER QUERY TEXT: Documentation Clarification Your help is requested in clarifying the following clinical documentation, if you can please further specify in the medical record the etiology of the Intractable Rt. Hip pain: if known after the work up is completed OR: unable to determine H and P: Impression : Severe intractable right hip pain with difficulty ambulation, one has to reeva luate the right hip prosthesis; hypertension, poorly controlled; history of cerebrovascular accident in the past; history of arthritis; history of hyperlipidemia Ortho consult pending . The patient's Clinical Indicators include: xx Query created by: Selam Magaña on 06/01/2018 3:09 PM Electronically signed by: Chris Walker MD 06/02/2018 8:46 AM
--- NOTE | 2018-06-02 08:50 | CP.PCM.DIS ---
Provider - Provider Date of Admission: 05/31/18 11:01 Attending physician: Chris Walker MD Time Spent in preparation of Discharge (in minutes): 35 Diagnosis - Discharge Diagnosis (1) Gait disturbance Status: Acute (2) Hip pain Status: Acute (3) Hip pain Status: Chronic (4) Hypertension Status: Chronic (5) Osteoarthritis Status: Chronic Hospital Course - Lab Results Lab Results: Most Recent Lab Values WBC 5.6 K/uL (4.8-10.8) 05/29/18 06:47 RBC 4.44 Mil/uL (3.80-5.20) 05/29/18 06:47 Hgb 12.8 g/dL (12.0-16.0) D 05/29/18 06:47 Hct 38.4 % (34.0-47.0) 05/29/18 06:47 MCV 86.6 fl (81.0-99.0) 05/29/18 06:47 MCH 28.9 pg (27.0-31.0) 05/29/18 06:47 MCHC 33.4 g/dL (33.0-37.0) 05/29/18 06:47 RDW 13.8 % (11.5-14.5) 05/29/18 06:47 Plt Count 265 K/uL (130-400) 05/29/18 06:47 MPV 8.2 fl (7.2-11.7) 05/29/18 06:47 Neut % (Auto) 63.8 % (50.0-75.0) 05/29/18 06:47 Lymph % (Auto) 23.2 % (20.0-40.0) 05/29/18 06:47 [place] % (Auto) 9.1 % (0.0-10.0) 05/29/18 06:47 Eos % (Auto) 2.4 % (0.0-4.0) 05/29/18 06:47 Baso % (Auto) 1.5 % (0.0-2.0) 05/29/18 06:47 Neut # (Auto) 3.5 K/uL (1.8-7.0) 05/29/18 06:47 Lymph # (Auto) 1.3 K/uL (1.0-4.3) 05/29/18 06:47 [place] # (Auto) 0.5 K/uL (0.0-0.8) 05/29/18 06:47 Eos # (Auto) 0.1 K/uL (0.0-0.7) 05/29/18 06:47 Baso # (Auto) 0.1 K/uL (0.0-0.2) 05/29/18 06:47 ESR 33 mm/hr (0-30) H 05/29/18 20:20 Sodium 142 mmol/l (132-148) 05/29/18 06:47 Potassium 3.8 MMOL/L (3.6-5.0) 05/29/18 06:47 Chloride 109 mmol/L (98-107) H 05/29/18 06:47 Carbon Dioxide 28 mmol/L (22-30) 05/29/18 06:47 Anion Gap 9 (10-20) L 05/29/18 06:47 BUN 22 mg/dl (7-17) H 05/29/18 06:47 Creatinine 0.6 mg/dl (0.7-1.2) L 05/29/18 06:47 Est GFR ( Amer) > 60 10 06:47 Est GFR (Non-Af Amer) > 60 05/29/18 06:47 Random Glucose 93 mg/dL (65-105) 05/29/18 06:47 Calcium 10.4 mg/dL (8.4-10.2) H 05/29/18 06:47 Total Bilirubin 0.8 mg/dl (0.2-1.3) 05/29/18 06:47 AST 25 U/L (14-36) 05/29/18 06:47 ALT 22 U/L (9-52) 05/29/18 06:47 Alkaline Phosphatase 122 U/L (38-126) 05/29/18 06:47 C-Reactive Protein 9.40 mg/L (0.0-9.9) 05/29/18 20:20 Total Protein 8.0 G/DL (6.3-8.2) 05/29/18 06:47 Albumin 4.1 g/dL (3.5-5.0) 05/29/18 06:47 Globulin 4.0 gm/dL (2.2-3.9) H 05/29/18 06:47 Albumin/Globulin Ratio 1.0 (1.0-2.1) 05/29/18 06:47 Urine Color Yellow (YELLOW) 05/29/18 10:30 Urine Clarity Clear (Clear) 05/29/18 10:30 Urine pH 6.0 (5.0-8.0) 05/29/18 10:30 Ur Specific [place] 1.016 (1.003-1.030) 05/29/18 10:30 Urine Protein Negative mg/dL (NEGATIVE) 05/29/18 10:30 Urine Glucose (UA) Neg mg/dL (Normal) 05/29/18 10:30 Urine Ketones Negative mg/dL (NEGATIVE) 05/29/18 10:30 Urine Blood Negative (NEGATIVE) 05/29/18 10:30 Urine Nitrate Negative (NEGATIVE) 05/29/18 10:30 Urine Bilirubin Negative (NEGATIVE) 05/29/18 10:30 Urine Urobilinogen 0.2-1.0 mg/dL (0.2-1.0) 05/29/18 10:30 Ur Leukocyte Esterase Neg [place]/uL (Negative) 05/29/18 10:30 Urine RBC (Auto) 2 /hpf (0-3) 05/29/18 10:30 Urine Microscopic WBC 4 /hpf (0-5) 05/29/18 10:30 Ur Squamous Epith Cells < 1 /hpf (0-5) 05/29/18 10:30 - Hospital Course Hospital Course: CLINICALLY IMPROVED WITH PT Discharge Exam - Head Exam Head Exam: ATRAUMATIC, NORMAL INSPECTION, NORMOCEPHALIC - Eye Exam Eye Exam: EOMI, Normal appearance, PERRL Pupil Exam: NORMAL ACCOMODATION, PERRL - GI/Abdominal Exam GI & Abdominal Exam: Normal Bowel Sounds - Rectal Exam Rectal Exam: NORMAL INSPECTION - Neurological Exam Neurological exam: Alert, CN II-XII Intact, Normal Gait, Oriented x3, Reflexes Normal - Psychiatric Exam Psychiatric exam: Normal Affect, Normal Mood - Skin Skin Exam: Dry, Intact, Normal Color, Warm Discharge Plan - Follow Up Plan Condition: FAIR Disposition: HOME/ ROUTINE Patient education suggested?: Yes Instructions: Hip Pain (DC), Joint Pain Additional Instructions: follow up with primary MD 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 Referrals: Rambo Greene MD [Staff Provider] - Tylor Dias MD [Staff Provider] -
== END 2018-06-01 19:37 | disposition home or self-care (01) | DRG 554 ==
LOC: H.ER 05:33 → H.ERHOLD 11:35 → H.MEDSURG1 14:14 → OBSVTOIN 05-31 11:01
PROVIDERS: ADMIT Internal Medicine Pulmonary Disease; ATTEND Internal Medicine Pulmonary Disease
DX: M16.11 Unilateral primary osteoarthritis, right hip (principal); I10 Essential (primary) hypertension; E78.00 Pure hypercholesterolemia, unspecified; E78.5 Hyperlipidemia, unspecified; Z23 Encounter for immunization; Z86.73 Personal history of transient ischemic attack (TIA), and cerebral infarction without residual deficits; L98.9 Disorder of the skin and subcutaneous tissue, unspecified; K59.00 Constipation, unspecified; R26.81 Unsteadiness on feet; L60.3 Nail dystrophy; M20.42 Other hammer toe(s) (acquired), left foot; M20.41 Other hammer toe(s) (acquired), right foot; R53.81 Other malaise; M19.90 Unspecified osteoarthritis, unspecified site

== ENCOUNTER 2018-06-10 23:59 | Emergency (ER) | payer MEDICARE ==
[2018-06-10 23:59] VITALS: PULSE 78; BMI 25.0
[2018-06-11 00:16] VITALS: TEMP 97.5; O2SAT 98
[2018-06-11 01:02] LABS: BASO # 0.1 K/uL (0.0-0.2); BASO % 1.2 % (0.0-2.0); EOS # 0.1 K/uL (0.0-0.7); EOS % 1.6 % (0.0-4.0); HEMOGLOBIN 11.9 g/dL (12.0-16.0); LYMPH # 1.7 K/uL (1.0-4.3); LYMPH % 20.7 % (20.0-40.0); MEAN CELL VOLUME 85.8 fl (81.0-99.0); MEAN CORPUSCULAR HEMOGLOBIN 28.6 pg (27.0-31.0); MEAN CORPUSCULAR HGB CONC 33.4 g/dL (33.0-37.0); MEAN PLATELET VOLUME 7.7 fl (7.2-11.7); MONO # 0.5 K/uL (0.0-0.8); MONO % 6.4 % (0.0-10.0); NEUT # 5.7 K/uL (1.8-7.0); NEUT % 70.1 % (50.0-75.0); RBC 4.15 Mil/uL (3.80-5.20); RED CELL DISTRIBUTION WIDTH 13.9 % (11.5-14.5); WHITE BLOOD COUNT 8.1 K/uL (4.8-10.8)
[2018-06-11 01:38] LABS: BLOOD UREA NITROGEN 19 mg/dl (7-17); CALCIUM 9.9 mg/dL (8.4-10.2); GFR NON-AFRICAN AMERICAN > 60
--- NOTE | 2018-06-11 02:03 | ED PDOC ---
Upper Extremity Pain/Injury Time Seen by Provider: 06/11/18 00:17 Chief Complaint (Nursing): Upper Extremity Problem/Injury Chief Complaint (Provider): Upper Extremity Pain History Per: Patient History/Exam Limitations: no limitations Onset/Duration Of Symptoms: Hrs (8x hours prior to arrival) Current Symptoms Are (Timing): Still Present Quality: "Pain" Severity: Moderate Additional Complaint(s): 83 year old female with a past medical history of arthritis, hypertension, and hypercholesterolemia presents to the ED with complaints of worsening left arm pain that started 8x hours prior to arrival. Patient states she was in her kitchen making pasta when she suddenly felt pain to her whole left arm including her wrist, elbow, shoulder, and joints. Patient denies sustaining any injury to her arm, chest pain, and shortness of breath. Patient reports taking tylenol 3x hours prior to arrival with no relief. PMD: Tylor Dias MD Past Medical History Reviewed: Historical Data, Nursing Documentation, Vital Signs Vital Signs: Last Vital Signs Temp 97.5 F L 06/11/18 00:06 Pulse 77 06/11/18 00:06 Resp 17 06/11/18 00:06 BP 160/93 H 06/11/18 00:06 Pulse Ox 98 06/11/18 00:06 - Medical History PMH: Anemia, Arthritis, CVA (13yrs ago), Fractures (Rt. Hip), HTN, Hypercholesterolemia, Hyperlipidemia, Pneumonia, TIA Denies: HIV, Pulmonary Embolism, Chronic Kidney Disease - Surgical History Other surgeries: right hip surgery - Family History Family History: States: No Known Family Hx - Social History Current smoker - smoking cessation education provided: No Alcohol: None Drugs: Denies - Home Medications Home Medications: Ambulatory Orders Medication Instructions Recorded RX: Furosemide [Lasix] 20 mg PO DAILY #30 tab 11/18/16 RX: Losartan [Cozaar] 100 mg PO DAILY #30 tab 11/18/16 RX: amLODIPine [Norvasc] 10 mg PO DAILY #30 tab 11/18/16 RX: Famotidine [Pepcid] 20 mg PO HS 05/29/18 RX: Niacin [Plain Niacin] 500 mg PO DAILY 05/29/18 RX: Rivaroxaban [Xarelto] 15 mg PO DAILY 05/29/18 RX: traMADol [Ultram] 50 mg PO TID PRN #15 tab 06/11/18 - Allergies Allergies/Adverse Reactions: Allergies Allergy/AdvReac Type Severity Reaction Status Date / Time No Known Allergies Allergy Verified 05/29/18 05:44 Review of Systems ROS Statement: Except As Marked, All Systems Reviewed And Found Negative Cardiovascular: Negative for: Chest Pain Respiratory: Negative for: Shortness of Breath Musculoskeletal: Positive for: Arm Pain (left) Physical Exam - Reviewed Nursing Documentation Reviewed: Yes Vital Signs Reviewed: Yes - Physical Exam Appears: Positive for: Well, Non-toxic, No Acute Distress Head Exam: Positive for: ATRAUMATIC, NORMOCEPHALIC Skin: Positive for: Normal Color, Warm, Dry Eye Exam: Positive for: EOMI Neck: Positive for: Normal, Painless ROM Cardiovascular/Chest: Positive for: Regular Rate, Rhythm Respiratory: Positive for: Normal Breath Sounds Extremity: Positive for: Deformity (upper left extremity: chronic deformities along fingers persistent with arthritis.). Negative for: Normal ROM (moving shoulder, hand, elbow with painful ROM), Swelling, Other (redness) Neurologic/Psych: Positive for: Alert, Oriented (3x) - Laboratory Results Result Diagrams: 06/11/18 00:55 06/11/18 00:55 - ECG ECG: Positive for: Interpreted By Me, Viewed By Me ECG Rhythm: Positive for: Normal QRS (rate: 75), Normal ST Segment. Negative for: ST/T Changes Interpretation Of ECG: normal sinus rhythm, no axis deviation, no acute changes Rate: 75 O2 Sat by Pulse Oximetry: 98 (RA) Pulse Ox Interpretation: Normal - Progress Re-evaluation Time: 05:20 Condition: Re-examined, Improved Medical Decision Making Medical Decision Makin:17 Initial impression: 83 year old female with left arm pain. Differential diagnoses include, but are not limited to arthritic pain, neuropathy, and atypical ACS considered. Initial plan: * XRay shoulder left * EKG * BMP * troponin * CBC * morphine 2 mg IVP * toradol 15 mg IVP * reevaluation 1:00 EKG read and interpreted by me. See Course/Tx note. Scribe Attestation: Documented byRach Jon, acting as a scribe for Junior Riley MD. Provider Scribe Attestation: All medical record entries made by the Scribe were at my direction and personally dictated by me. I have reviewed the chart and agree that the record accurately reflects my personal performance of the history, physical exam, medical decision making, and the department course for this patient. I have also personally directed, reviewed, and agree with the discharge instructions and disposition. Disposition - Clinical Impression Clinical Impression: Shoulder pain - Patient ED Disposition Is Patient to be Admitted: No Doctor Will See Patient In The: Office Counseled Patient/Family Regarding: Studies Performed, Diagnosis, Need For Followup - Disposition Referrals: Tylor Dias MD [Family Provider] - Disposition: Routine/Home Disposition Time: 05:24 Condition: GOOD Additional Instructions: LUCIA RAND, thank you for letting us take care of you today. Your provider was Junior Riley MD and you were treated for LT ARM PAIN. The emergency medical care you received today was directed at your acute symptoms. If you were prescribed any medication, please fill it and take as directed. It may take several days for your symptoms to resolve. Return to the Emergency Department if your symptoms worsen, do not improve, or if you have any other problems. Please contact your doctor or call one of the physicians/clinics you have been referred to that are listed on the Patient Visit Information form that is inc luded in your discharge packet. Bring any paperwork you were given at discharge with you along with any medications you are taking to your follow up visit. Our treatment cannot replace ongoing medical care by a primary care provider outside of the emergency department. Thank you for allowing the [facility] team to be part of your care today. If you had an X-Ray or CT scan: A Radiologist will review the ED reading if any change in treatment is needed we will contact you. If you had a blood, urine, or wound culture: It will take several days for the results, if any change in treatment is needed we will contact you. If you had an STI test: It will take 48 hours for the results. Please call after 1 week if you have not heard back. Prescriptions: RX: traMADol [Ultram] 50 mg PO TID PRN #15 tab PRN Reason: Pain, Severe (8-10) Instructions: Shoulder Pain (DC)
[2018-06-11 02:13] VITALS: PULSE 75
[2018-06-11] MEDS ORDERED: Morphine 4 MG/ML VIAL ONE (03:28)
--- NOTE | 2018-06-11 07:11 | CARD ---
APPROVED REPORT Date of service: 06/11/2018 EKG Measurement Heart [id number] <Conclusion> Normal sinus rhythm Normal ECG
[2018-06-11 08:00] VITALS: BP 143/72; RESP 18
--- NOTE | 2018-06-11 09:07 | RAD ---
Date of service: 06/11/2018 PROCEDURE: Radiographs of the Left Shoulder HISTORY: shoulder pain no injury COMPARISON: No prior. FINDINGS: BONES: No acute fracture or destructive bony lesion identified. Diffuse osteopenia suggests osteoporosis. JOINTS: No definite subluxation or dislocation appreciated. Extensive degenerative osteophyte formation is appreciate the glenohumeral and acromioclavicular joints with articular cortical sclerosis identified at the glenohumeral joint. SOFT TISSUES: Unremarkable. OTHER FINDINGS: None. IMPRESSION: No acute fracture or dislocation identified left shoulder. Diffuse osteopenia suggests osteoporosis. Relatively advanced degenerative joint disease.
--- NOTE | 2018-06-11 09:18 | RAD ---
Date of service: 06/11/2018 HISTORY: arm pain COMPARISON: Frontal chest radiograph 05/29/2018. FINDINGS: LUNGS: Inspiratory volume appears diminished with crowding of the bronchovascular markings at the bases bilaterally. Limited left retrocardiac airspace disease difficult to completely exclude though it is not favored here. Postoperative changes are reiterated at the right lung base. Small calcified granulomata or lymph node is seen at the mediastinum as well as right pulmonary apex. PLEURA: No significant pleural effusion identified, no pneumothorax apparent. CARDIOVASCULAR: Calcific atherosclerotic changes are seen related to the thoracic aorta. Cardiac silhouette is stable. No definite pulmonary vascular congestion. OSSEOUS STRUCTURES: No significant abnormalities. VISUALIZED UPPER ABDOMEN: Normal. OTHER FINDINGS: None. IMPRESSION: Borderline airspace disease left base with overall history volume somewhat limited. Postoperative changes reiterated right base. Calcified lymph nodes are granulomata are again seen at the mediastinum and right apex with cardiac silhouette stable. No pulmonary vascular congestion.
--- NOTE | 2018-06-11 15:15 | CT ---
Date of service: 06/11/2018 PROCEDURE: CT Left Shoulder without Contrast. HISTORY: left shoulder arm pain COMPARISON: Left shoulder radiographs 06/11/[address] with contrast 11/06/2016. TECHNIQUE: Contiguous axial images of the pelvis . No intravenous or oral contrast given. Coronal and sagittal reformats generated. Radiation dose: Total exam DLP = 268.83 mGy-cm. This CT exam was performed using one or more of the following dose reduction techniques: Automated exposure control, adjustment of the mA and/or kV according to patient size, and/or use of iterative reconstruction technique. FINDINGS: No acute fracture or dislocation identified. No subluxation at the glenohumeral joint. The acromioclavicular joint is degenerated moderate to severely with superior greater than inferior osteophytes related. Cortical sclerosis and joint space narrowing at the glenohumeral joint are commended by osteophytes compatible with osteoarthritis as well. There is a well-corticated calcific density identified medial to the left humeral head slightly increased in size compared to prior chest CT 11/06/2016, reflecting probable heterotopic calcification or even tendinosis at the superior margins of the subscapularis tendon. Clinically correlate further. There is a likely limited sub deltoid/sub acromial bursal effusion. Limited glenohumeral joint effusion question. No destructive bony lesion is appreciate with local soft tissues otherwise unremarkable. MRI can be utilized for further characterization as clinically warranted. OTHER FINDINGS: None. IMPRESSION: No acute fracture or subluxation/dislocation. Degenerative joint disease seen the gland acromioclavicular and glenohumeral joints and a mild subdeltoid sub acromial bursal effusion is suggested as well as joint effusion of the glenohumeral joint as discussed above. Further characterization by MRI can be performed as clinically warranted. Concordant preliminary report from [id number], 06/11/2018.
== END 2018-06-11 06:00 | disposition home or self-care (01) ==
LOC: H.ER 23:59
DX: M79.602 Pain in left arm (principal); M25.512 Pain in left shoulder; E78.00 Pure hypercholesterolemia, unspecified; I10 Essential (primary) hypertension; Z86.73 Personal history of transient ischemic attack (TIA), and cerebral infarction without residual deficits
CPT/HCPCS: 71045; 73030; 73200; 80048; 84484; 85025; 93005; 96374; 96375; 96376; 99284; J1885; J2270